=== PATIENT | female | born 1965 | race Caucasian/White ===

== ENCOUNTER 2020-10-26 10:09 | Outpatient (RCR) | payer BC, SELFPAY ==
[2015-04-21 08:16] VITALS: BMI 42.6
[2020-10-26] MEDS: COVID-19 VACC, MRNA(PFIZER)/PF 30 MCG/0.3 ML SYRINGE IM (18:45)
[2020-11-16] MEDS: COVID-19 VACC, MRNA(PFIZER)/PF 30 MCG/0.3 ML SYRINGE IM (18:23)
== END 2020-10-26 23:59 ==
LOC: IMMUN 10:09
PROVIDERS: PCP Family Medicine; Referring Provider Family Medicine; Visit Provider Family Medicine
DX: Z23 Encounter for immunization (principal)
CPT/HCPCS: 0001A; 0002A; 91300

== ENCOUNTER → 2021-03-30 09:20 | Outpatient (CLI) | payer BC, SELFPAY | PROVIDERS: PCP Family Medicine; Referring Provider Family Medicine; Visit Provider Family Medicine | DX: R00.2 Palpitations (principal); R00.0 Tachycardia, unspecified | CPT/HCPCS: 93225; 93226 ==

== ENCOUNTER → 2021-07-04 07:37 | Outpatient (CLI) | payer BC, SELFPAY ==
[2021-07-04 09:55] LABS: ALB/GLOB Ratio 0.8 RATIO (0.9-2.4); AST(SGOT) 24 U/L (15-37); Alanine Aminotransfer ALT/SGPT 36 U/L (13-56); Albumin, Serum 3.3 g/dL (3.2-5.0); Alkaline Phosphatase 67 U/L (45-117); Anion Gap 8 (5-15); BUN 15 mg/dL (7-18); BUN/Creat Ratio 19.2 RATIO (10-20); Bilirubin, Direct 0.09 mg/dL (0.00-0.30); Chloride 102 mmol/L (98-107); Cholesterol 243 mg/dL (200); Creatinine, Serum 0.78 mg/dL (0.55-1.02); EST Glomerular Filtration Rate 81 mL/min (>60); Est Glom Filt Rate - Afr Amer 98 mL/min (>60); Globulin 4.2 g/dL (2.2-4.2); Glucose 175 mg/dL (74-106); High Density Lipoprotein 42 mg/dL; Potassium 4.1 mmol/L (3.5-5.1); Protein, Total 7.5 g/dL (6.4-8.2); Sodium Level 136 mmol/L (136-145); Triglycerides 266 mg/dL; Very Low Density Lipoprotein 53 mg/dL (5-40)
== END ==
PROVIDERS: PCP Family Medicine; Referring Provider Internal Medicine Cardiovascular Disease; Visit Provider Internal Medicine Cardiovascular Disease
DX: I49.3 Ventricular premature depolarization (principal); I10 Essential (primary) hypertension; E78.2 Mixed hyperlipidemia; R00.2 Palpitations
CPT/HCPCS: 36415; 80053; 80061; 82248

== ENCOUNTER → 2021-07-12 13:51 | Outpatient (CLI) | payer BC, SELFPAY ==
--- NOTE | 2021-07-12 14:00 | ECHOD_ITS ---
Reason For Study: Arrhythmia Procedure This was a 2D Doppler, Color Flow transthoracic echocardiogram. Exam performed in department. Left Ventricle Normal LV size. Left ventricular systolic function is normal. The estimated ejection fraction is 65 %. Transmitral doppler flow suggestive of impaired relaxation of left ventricle. No regional wall motion abnormalities noted. Right Ventricle Normal RV size. Normal systolic function. Atria Normal left atrium. Normal right atrium. No doppler evidence for ASD. Mitral Valve There is no mitral annular calcification. Normal mitral valve. Trivial mitral valve insufficiency. Tricuspid Valve Normal tricuspid valve. Trivial tricuspid valve insufficiency. Unable to estimate RV systolic pressure due to insufficient tricuspid regurgitant envelope. Aortic Valve Trisinus/trileaflet aortic valve. Normal aortic valve. Trivial aortic valve insufficiency. Pulmonic Valve The pulmonic valve is not well visualized. Trivial pulmonic valve insufficiency. Great Vessels Normal sized aortic root. Pericardium/Pleural No pericardial effusion. MMode/2D Measurements & Calculations LVIDd: 4.4 cm IVSd: 1.0 cm Ao root diam: 3.0 cm LVIDs: 2.9 cm LVPWd: 0.92 cm RVDd: 2.8 cm FS: 34.0 % LAV(MOD-bp): 27.8 ml LVAd ap4: 28.1 cm2 LVAd ap2: 25.9 cm2 LAV(MOD-bp) Indexed: 12.3 ml/m2 LVLd ap4: 7.4 cm LVLd ap2: 7.7 cm LAV(MOD-sp2): 35.3 ml EDV(MOD-sp4): 87.9 ml EDV(MOD-sp2): 74.8 ml LAV(MOD-sp4): 21.2 ml EDV(sp4-el): 90.9 ml EDV(sp2-el): 73.5 ml LVAs ap4: 13.8 cm2 LVAs ap2: 14.2 cm2 LVLs ap4: 6.0 cm LVLs ap2: 6.6 cm ESV(MOD-sp4): 28.4 ml ESV(MOD-sp2): 26.7 ml ESV(sp4-el): 27.2 ml ESV(sp2-el): 25.9 ml EF(MOD-sp4): 67.7 % EF(MOD-sp2): 64.3 % EF(sp4-el): 70.1 % SV(MOD-sp4): 59.5 ml SV(MOD-sp2): 48.1 ml SV(sp4-el): 63.7 ml LA dimension(2D): 3.0 cm LA A4 area: 10.9 cm2 RA A4 area: 9.3 cm2 Doppler Measurements & Calculations MV E max rojelio: 52.5 cm/sec Lat Peak E' Rojelio: 10.9 cm/sec Med Peak E' Rojelio: 5.6 cm/sec MV A max rojelio: 62.4 cm/sec E/E' lat: 4.8 E/E' med: 9.3 MV E/A: 0.84 Ao V2 max: 144.0 cm/sec LV V1 max: 130.2 cm/sec PA V2 max: 114.4 cm/sec Ao max P.3 mmHg LV V1 max P.8 mmHg ECHO/Echo Complete Interpretation Summary Left ventricular systolic function is normal. The estimated ejection fraction is 65 %. Trivial mitral valve insufficiency. Trivial tricuspid valve insufficiency. Trivial aortic valve insufficiency. Trivial pulmonic valve insufficiency. Transmitral doppler flow suggestive of impaired relaxation of left ventricle Ordering Physician: Kerwin Roche Referring Physician: Marion Hurtado Performed By: Sushma Hudson RDCS
== END ==
PROVIDERS: PCP Family Medicine; Visit Provider Internal Medicine Cardiovascular Disease
DX: I49.3 Ventricular premature depolarization (principal); I49.1 Atrial premature depolarization; R00.2 Palpitations; E78.2 Mixed hyperlipidemia; I10 Essential (primary) hypertension
CPT/HCPCS: 93306

== ENCOUNTER 2021-10-15 08:30 | Outpatient (CLI) | payer BC, SELFPAY ==
[2021-10-15 10:00] LABS: ALB/GLOB Ratio 0.9 RATIO (0.9-2.4); AST(SGOT) 21 U/L (15-37); Alanine Aminotransfer ALT/SGPT 30 U/L (13-56); Albumin, Serum 3.8 g/dL (3.2-5.0); Alkaline Phosphatase 66 U/L (45-117); Anion Gap 9 (5-15); BUN 19 mg/dL (7-18); BUN/Creat Ratio 23.4 RATIO (10-20); Calcium,Total 8.9 mg/dL (8.5-10.1); Chloride 102 mmol/L (98-107); Cholesterol 244 mg/dL (200); Creatinine, Serum 0.81 mg/dL (0.55-1.02); EST Glomerular Filtration Rate 77 mL/min (>60); Est Glom Filt Rate - Afr Amer 94 mL/min (>60); Globulin 4.3 g/dL (2.2-4.2); Glucose 121 mg/dL (74-106); High Density Lipoprotein 44 mg/dL; Potassium 4.5 mmol/L (3.5-5.1); Protein, Total 8.1 g/dL (6.4-8.2); Sodium Level 134 mmol/L (136-145); Triglycerides 156 mg/dL; Very Low Density Lipoprotein 31 mg/dL (5-40)
[2021-10-17 08:28] LABS: Insulin 30.8 mU/L (2.6-37.6)
== END 2021-10-15 23:59 | disposition home or self-care (01) ==
PROVIDERS: PCP Family Medicine; Referring Provider Family Medicine; Visit Provider Family Medicine
DX: Z00.00 Encounter for general adult medical examination without abnormal findings (principal); E11.65 Type 2 diabetes mellitus with hyperglycemia
CPT/HCPCS: 36415; 80053; 80061; 83525; 84681

== ENCOUNTER → 2022-07-31 | Outpatient (CLI) | payer BC, SELFPAY | END | disposition home or self-care (01) | LOC: BFHLAB 15:32 | PROVIDERS: PCP Family Medicine; Visit Provider Family Medicine | DX: R30.0 Dysuria (principal) | CPT/HCPCS: 87086; 87088 ==

== ENCOUNTER → 2022-08-18 | Outpatient (CLI) | payer BC, SELFPAY ==
--- NOTE | 2022-08-18 11:49 | US_ITS ---
INDICATION: DIFFICULTY SWALLOWING EXAMINATION: Ultrasound US Thyroid (eg thyroid, parathyroid, parotid) TECHNIQUE: Powell scale and color doppler imaging was performed of the thyroid gland. COMPARISON: None. FINDINGS: RIGHT THYROID LOBE: 5.4 x 1.8 x 1.4 cm. Homogeneous echotexture with normal vascularity. [No thyroid nodules are present. LEFT THYROID LOBE: 4.7 x 1.6 x 1.3 cm. Homogeneous echotexture with normal vascularity. [No thyroid nodules are present. ISTHMUS: 2 mm. No thyroid nodules are present. Incidental finding of small left peritonsillar right lymph nodes measuring 9 x 8 x 4 mm most likely benign. US/Thyroid IMPRESSION: Negative thyroid ultrasound examination. Small left perithyroidal lymph node likely benign Electronically Signed: Pal Galdamez MD at 17:02 EST ,
== END | disposition home or self-care (01) ==
PROVIDERS: PCP Family Medicine; Visit Provider Family Medicine
DX: E01.0 Iodine-deficiency related diffuse (endemic) goiter (principal); R13.10 Dysphagia, unspecified
CPT/HCPCS: 76536

== ENCOUNTER → 2022-12-01 | Outpatient (CLI) | payer BC, SELFPAY ==
[2022-12-01 08:13] LABS: Absolute Lymphocyte Count 2.36 X10^3/uL (0.83-4.51); Absolute Neutrophil Count 3.2 X10^3/uL (2.0-7.7); Basophil# 0.03 X10^3/uL; Basophil% 0.5 % (0-1); Eosinophils% 1.6 % (0-5); Hematocrit 47.7 % (37-47); Hemoglobin 15.3 g/dL (12.0-15.0); Lymphocyte # 2.36 X10^3/ul (0.83-4.51); Lymphocyte % 38.4 % (19-41); Mean Corp Hgb Conc 32.1 g/dL (32-36); Mean Corpuscular Hgb 30.2 pg (27.0-32.0); Mean Corpuscular Volume 94.1 fL (81-99); Mean Platelet Vol. 9.9 fl (6.2-12.0); Monocyte# 0.45 X10^3/uL; Monocyte% 7.3 % (0-10); NRBC Flagged by Analyzer 0 % (0-5); Neutrophil # 3.19 X10^3/uL (2.7-7.7); Neutrophil % 51.9 % (47-70); Platelet Count 273 K/mm3 (150-450); RBC Distribution Width CV 13.6 % (11.6-14.6); RBC Distribution Width SD 46.7 fl (35.1-43.9); Red Blood Count 5.07 M/mm3 (4.2-5.4); White Blood Count 6.2 K/mm3 (4.4-11.0)
[2022-12-01 08:38] LABS: Microalbumin,Random Urine 10.6 mg/L (NO RANGE EST.); Microalbumin:Creatinine Ratio 14.5 mg/g CRE (<30 mg/g CRE)
[2022-12-01 08:40] LABS: AST(SGOT) 14 U/L (15-37); Alanine Aminotransfer ALT/SGPT 23 U/L (13-56); Albumin, Serum 3.6 g/dL (3.2-5.0); Alkaline Phosphatase 47 U/L (45-117); Anion Gap 2 (5-15); BUN 15 mg/dL (7-18); BUN/Creat Ratio 17.9 RATIO (10-20); Calcium,Total 9.4 mg/dL (8.5-10.1); Chloride 107 mmol/L (98-107); Cholesterol 247 mg/dL (200); Creatinine, Serum 0.84 mg/dL (0.55-1.02); EST Glomerular Filtration Rate 74 mL/min (>60); Est Glom Filt Rate - Afr Amer 90 mL/min (>60); Globulin 3.5 g/dL (2.2-4.2); Glucose 91 mg/dL (74-106); High Density Lipoprotein 50 mg/dL; Potassium 4.5 mmol/L (3.5-5.1); Protein, Total 7.1 g/dL (6.4-8.2); Sodium Level 136 mmol/L (136-145); Triglycerides 171 mg/dL; Very Low Density Lipoprotein 34 mg/dL (5-40)
[2022-12-01 08:50] LABS: Hemoglobin A1c 5.4 % (3.8-5.6)
== END | disposition home or self-care (01) ==
LOC: LAB 07:18
PROVIDERS: PCP Family Medicine; Referring Provider Family Medicine; Visit Provider Family Medicine
DX: E11.9 Type 2 diabetes mellitus without complications (principal); E78.5 Hyperlipidemia, unspecified
CPT/HCPCS: 36415; 80053; 80061; 82043; 82570; 83036; 85025

== ENCOUNTER → 2024-02-26 | Outpatient (CLI) | payer BC, SELFPAY | END | disposition home or self-care (01) | PROVIDERS: PCP Family Medicine; Referring Provider Family Medicine; Visit Provider Family Medicine | DX: R30.0 Dysuria (principal) | CPT/HCPCS: 87077; 87086; 87088; 87186 ==

== ENCOUNTER → 2024-03-01 | Outpatient (CLI) | payer BC, SELFPAY ==
[2024-03-01 09:22] LABS: Absolute Lymphocyte Count 1.92 X10^3/uL (0.83-4.51); Absolute Neutrophil Count 3.1 X10^3/uL (2.0-7.7); Basophil# 0.03 X10^3/uL; Basophil% 0.5 % (0-1); Eosinophil# 0.08 X10^3/uL; Eosinophils% 1.4 % (0-5); Hemoglobin 14.9 g/dL (12.0-15.0); Lymphocyte # 1.92 X10^3/ul (0.83-4.51); Lymphocyte % 34.7 % (19-41); Mean Corp Hgb Conc 32.4 g/dL (32-36); Mean Corpuscular Hgb 29.6 pg (27.0-32.0); Mean Corpuscular Volume 91.5 fL (81-99); Mean Platelet Vol. 9.8 fl (6.2-12.0); Monocyte# 0.38 X10^3/uL; Monocyte% 6.9 % (0-10); NRBC Flagged by Analyzer 0 % (0-5); Neutrophil % 56.1 % (47-70); Platelet Count 241 K/mm3 (150-450); RBC Distribution Width CV 12.8 % (11.6-14.6); RBC Distribution Width SD 42.1 fl (35.1-43.9); Red Blood Count 5.03 M/mm3 (4.2-5.4); White Blood Count 5.5 K/mm3 (4.4-11.0)
[2024-03-01 09:49] LABS: ALB/GLOB Ratio 1.1 RATIO (0.9-2.4); AST(SGOT) 15 U/L (15-37); Alanine Aminotransfer ALT/SGPT 21 U/L (13-56); Albumin, Serum 3.6 g/dL (3.2-5.0); Alkaline Phosphatase 52 U/L (45-117); Anion Gap 6 (5-15); BUN 14 mg/dL (7-18); BUN/Creat Ratio 16.2 RATIO (10-20); Calcium,Total 8.7 mg/dL (8.5-10.1); Chloride 103 mmol/L (98-107); Cholesterol 205 mg/dL (200); Creatinine, Serum 0.86 mg/dL (0.55-1.02); EST Glomerular Filtration Rate 71 mL/min (>60); Est Glom Filt Rate - Afr Amer 86 mL/min (>60); Globulin 3.3 g/dL (2.2-4.2); Glucose 77 mg/dL (74-106); High Density Lipoprotein 55 mg/dL; Potassium 3.8 mmol/L (3.5-5.1); Protein, Total 6.9 g/dL (6.4-8.2); Sodium Level 138 mmol/L (136-145); Triglycerides 110 mg/dL; Very Low Density Lipoprotein 22 mg/dL (5-40)
[2024-03-01 09:52] LABS: Hemoglobin A1c 4.9 % (3.8-5.6)
[2024-03-01 10:21] LABS: Microalbumin,Random Urine 8.3 mg/L (NO RANGE EST.); Microalbumin:Creatinine Ratio 11.3 mg/g CRE (<30 mg/g CRE)
== END | disposition home or self-care (01) ==
LOC: LAB 08:29
PROVIDERS: PCP Family Medicine; Referring Provider Family Medicine; Visit Provider Family Medicine
DX: E11.9 Type 2 diabetes mellitus without complications (principal); E78.5 Hyperlipidemia, unspecified
CPT/HCPCS: 36415; 80053; 80061; 82043; 82570; 83036; 85025

== ENCOUNTER → 2024-04-08 | Outpatient (CLI) | payer BC, SELFPAY ==
--- NOTE | 2024-04-08 15:51 | BI_ITS ---
MAMMOGRAPHY - BILATERAL SCREENING REASON FOR EXAM: Female, 58 years old. Routine annual screening examination. PERTINENT HISTORY: Non-contributory. TECHNIQUE: Digital bilateral breast kahlil (3D mammographic acquisition) in the CC and MLO projections. 2-D mediolateral oblique (MLO) and craniocaudad (CC) views of both breasts were obtained. CAD: Full Field Digital Mammography with Computer Added Detection was performed. COMPARISON: Comparison is made with prior study dated September 26, 2011. FINDINGS: Breast Composition: The breasts are almost entirely fatty. There are no dominant masses or suspicious calcifications. Stable small bilateral axillary lymph nodes. No other significant abnormalities are identified. There has been no significant change since the prior study. BI/SCRN MAMM (CAD)W/KAHLIL BILAT IMPRESSION: Stable bilateral screening mammogram. Yearly follow-up mammogram recommended. (A) ASSESSMENT CATEGORY: BIRADS Category 2: Benign. A letter regarding these results will be sent to the patient by the facility within 30 days. Approximately 10% of breast cancers are not detected by mammography. A normal mammogram should not delay biopsy of a clinically suspicious abnormality. [id number] Electronically Signed: Jameel Rodriguez MD at 8:24 EDT ,
== END | disposition home or self-care (01) ==
LOC: OPBI 15:50
PROVIDERS: PCP Family Medicine; Referring Provider Family Medicine; Visit Provider Family Medicine
DX: Z12.31 Encounter for screening mammogram for malignant neoplasm of breast (principal)
CPT/HCPCS: 77063; 77067

== ENCOUNTER → 2024-06-11 | Outpatient (CLI) | payer BC, SELFPAY ==
[2024-06-19 11:10] LABS: Age Gdln ACOG Testing 30-65 (.); HPV APTIMA, High Risk Negative (Negative)
[2024-06-23 14:40] LABS: HPV Reflexed? YES, CHARGE PATIENT
== END | disposition home or self-care (01) ==
PROVIDERS: PCP Family Medicine; Referring Provider Family Medicine; Visit Provider Family Medicine
DX: Z12.4 Encounter for screening for malignant neoplasm of cervix (principal)
CPT/HCPCS: 87624; 88175; G0145

== ENCOUNTER 2024-09-15 11:07 | Emergency (ER) | payer BC, SELFPAY ==
[2024-09-15 11:08] VITALS: BP 155/78; PULSE 79; RESP 16; TEMP 36.7; O2SAT 98; BMI 32.8
[2024-09-15 11:10] VITALS: BP 155/78; PULSE 79; RESP 16; TEMP 36.7; O2SAT 98
--- NOTE | 2024-09-15 11:22 | EKG12_ITS ---
Test Reason : Blood Pressure : */* mmHG Vent. Rate : 73 BPM Atrial Rate : 73 BPM P-R Int : 150 ms QRS Dur : 70 ms QT Int : 370 ms P-R-T Axes : 31 11 9 degrees QTcB Int : 407 ms Normal sinus rhythm Low voltage QRS Abnormal ECG Confirmed by COREY REAGAN, RANDY ([id number]), managing editor SILVER DAVIS ([id number]) on 09/16/2024 8:51:24 AM Referred By: Confirmed By: RANDY NICOEL MD
--- NOTE | 2024-09-15 11:23 | EDS_ITS ---
HPI <DEX Cazares - Last Filed: 09/15/24 14:16> History of Present Illness Chief Complaint: General Illness Narrative Narrative: Patient is a 38-year-old female history of type 2 diabetes, hypertension, hyperlipidemia presents to the emerged department for 3 to 4 days of generalized malaise, stomach upset. Patient states today, she is more shaky, she has some chest fluttering, and feels extremely nauseous. Patient denies any shortness of breath, patient denies any documented fever or chills however states she feels hot. She denies sick contacts. Denies any specific diarrhea. [facility] <DEX Cazares - Last Filed: 09/15/24 14:16> [facility] Medical History (Updated 09/15/24 @ 15:[address] Zeb Chin MD) PAC (premature atrial contraction) PVC's (premature ventricular contractions) Ventricular ectopy Peripheral neuropathy Mixed hyperlipidemia Asthma Essential hypertension Type 2 diabetes mellitus Home Medications ?Medication ?Instructions ?Recorded ?Last Taken ?Type albuterol sulfate 90 mcg/actuation 2 puff inhalation Q 6H PRN 06/03/21 Unknown History aerosol inhaler (Ventolin HFA) clobetasol 0.05 % topical cream 1 applic topical BID P RN Psoriasis 06/03/21 Unknown Rx #15 grams empagliflozin 25 mg tablet 25 mg PO DAILY 06/03/21 Unk nown History (Jardiance) fluticasone propionate 115 2 puff inhalation BID #8 gr ams 06/03/21 Unknown Rx mcg-salmeterol 21 mcg/actuation HFA inhaler (Advair HFA) liraglutide 0.6 mg/0.1 mL (18 mg/3 1.8 mg (0.3 mL) sub cut DAILY #6 mL 06/03/21 Unknown Rx mL) subcutaneous pen injector (Victoza 2-Cayetano) lisinopril 40 mg tablet 40 mg PO DAILY 06/03/21 Unkn own History mometasone 50 mcg/actuation nasal 2 spray intranasal D AILY PRN 06/03/21 Unknown Rx spray (Nasonex) allergy symptoms #17 grams alprazolam 0.25 mg tablet (Xanax) 0.25 mg PO DAILY PRN anxiety 06/23/21 Unknown History atorvastatin 20 mg tablet 20 mg PO QHS #30 tabs Unknown Rx ondansetron 4 mg disintegrating 4 mg PO Q8H PRN PRN Na usea #10 tabs 09/15/24 Unknown Rx tablet Allergy/AdvReac Type Severity Reaction Status Date / Time No Known Allergies Allergy Verified 09/15/24 11:39 Family History Mother Hypertension CAD (coronary artery disease), Onset Age: 60 Father Hypertension Sister Atrial fibrillation Sister Atrial fibrillation Surgical History History of left knee surgery Social History Smoking Status: Former smoker alcohol intake: never substance use type: does not use caffeine: No ROS <DEX Cazares - Last Filed: 09/15/24 14:16> ROS ED ROS Narrative Constitutional: Negative for fever, weight loss. Positive chills, weakness Eyes: Negative for vision loss, vision change, double vision ENT: Negative for any sore throat, ear pain, congestion Cardiovascular: Negative for any chest pain, tightness, palpitations Respiratory: Negative for any cough, sputum production, hemoptysis, dyspnea, dyspnea on exertion, orthopnea Gastrointestinal: Negative for any abdominal pain, vomiting, diarrhea, constipation, blood in stool, blood in vomit. Positive for nausea : Negative for any urinary frequency, dysuria, retention, blood in urine Muscle skeletal: Negative for any neck pain. Positive back pain Neurological: Negative for any headache, syncope, dizziness Skin: Negative for any rashes, itching, abrasions, lacerations Psychiatric: Negative for any depression, anxiety, stress, suicidal ideation, homicidal ideation Hematologic: Negative for any excessive bruising, easy bleeding EXAM <DEX Cazares - Last Filed: 09/15/24 14:16> Physical Exam Narrative Exam Narrative: Vital signs reviewed. HEET: Head normocephalic atraumatic, TMs clear bilaterally. Posterior pharynx is clear, dry mucous membranes. Nares clear bilaterally. Neck: Supple with no lymphadenopathy or tenderness. No signs of meningismus. Cardiac: Regular rate and rhythm no murmurs gallops or rubs, equal peripheral pulses bilaterally. Respiratory: Lungs clear to auscultation bilaterally. No chest tenderness. Abdomen: Soft, nontender, nondistended. No abdominal bruit or pulsatile masses. No hepatosplenomegaly Extremities: No peripheral edema, no signs of gross trauma or deformity. Active full range of motion of all extremities. Neuro: Cranial nerves II through XII intact, no focal neurological deficits. Skin: Clean dry and intact with no rash, purpura, petechiae, vesicles or pustules. Backs/flank: No CVA tenderness, no midline spinal tenderness, no deformity. Psych: Normal mood and affect. No SI, HI or acute psychosis. Const Vital Signs: 09/15/24 11:08 09/15/24 11:10 09/15/24 11:39 Temperature 98.1 F 98.1 F Temperature Source Temporal Temporal Pulse Rate 79 79 Respiratory Rate 16 16 Respiratory Effort Normal Respiratory Pattern Normal Blood Pressure 155/78 H 155/78 H Blood Pressure Mean 103 103 Pulse Ox 98 98 Oxygen Delivery Method Room Air Room Air 09/15/24 13:00 09/15/24 14:36 Temperature 97.7 F L 97.2 F L Temperature Source Oral Pulse Rate 75 73 Respiratory Rate 16 15 Respiratory Effort Respiratory Pattern Blood Pressure 129/71 H 124/77 H Blood Pressure Mean 90 92 Pulse Ox 98 98 Oxygen Delivery Method Room Air <Dr. Zeb Chin MD - Last Filed: 09/15/24 15:09> Physical Exam Const Vital Signs: 09/15/24 11:08 09/15/24 11:10 09/15/24 11:39 Temperature 98.1 F 98.1 F Temperature Source Temporal Temporal Pulse Rate 79 79 Respiratory Rate 16 16 Respiratory Effort Normal Respiratory Pattern Normal Blood Pressure 155/78 H 155/78 H Blood Pressure Mean 103 103 Pulse Ox 98 98 Oxygen Delivery Method Room Air Room Air 09/15/24 13:00 09/15/24 14:36 Temperature 97.7 F L 97.2 F L Temperature Source Oral Pulse Rate 75 73 Respiratory Rate 16 15 Respiratory Effort Respiratory Pattern Blood Pressure 129/71 H 124/77 H Blood Pressure Mean 90 92 Pulse Ox 98 98 Oxygen Delivery Method Room Air MDM <DEX Cazares - Last Filed: 09/15/24 14:16> [facility] Lab Data Labs: Laboratory Results - last 24 hr 09/15/24 09/15/24 11:37 13:00 WBC 6.8 RBC 4.91 Hgb 14.9 Hct 43.6 MCV 88.8 MCH 30.3 MCHC 34.2 RDW Std Deviation 41.6 RDW Coeff of Melchor 12.6 Plt Count 229 MPV 9.5 Immature Gran % (Auto) 0.900 Neut % (Auto) 76.0 H Lymph % (Auto) 17.3 L Guadalupe % (Auto) 5.0 Eos % (Auto) 0.4 Baso % (Auto) 0.4 Absolute Neuts (auto) 5.1 Absolute Lymphs (auto) 1.17 Nucleated RBC % 0 D-Dimer Quant (PE/DVT) 0.27 Sodium 139 Potassium 3.8 Chloride 108 H Carbon Dioxide 23.0 Anion Gap 8 BUN 17 Creatinine 1.14 H Estim Creat Clear Calc 62.87 Est GFR (MDRD) Af Amer 63 Est GFR (MDRD) Non-Af 52 L BUN/Creatinine Ratio 14.9 Glucose 124 H Calcium 8.9 Total Bilirubin 0.60 AST 17 ALT 21 Alkaline Phosphatase 56 Troponin I High Sens 4 Total Protein 6.9 Albumin 3.4 Globulin 3.5 Albumin/Globulin Ratio 1.0 Lipase 81 H Urine Color Yellow Urine Clarity Clear Urine pH 7.0 Ur Specific [place] 1.005 Urine Protein Negative Urine Glucose (UA) 1000 H Urine Ketones 5 H Urine Occult Blood Negative Urine Nitrite Negative Urine Bilirubin Negative Urine Urobilinogen Normal Ur Leukocyte Esterase 100 H Urine RBC 0 SEEN Urine WBC 0-5 SEEN Ur Squamous Epith Cells 0-5 SEEN Urine Bacteria 0 SEEN Urine Mucus 0 SEEN Radiography Diagnostic Testing: Clinical Impression(s) from Imaging Studies Chest X-Ray 09/15/24 11:40 IMPRESSION: No acute cardiopulmonary process. Reading Location: [facility] Treatment and Re-Evaluation :: Differential diagnosis includes however is not limited to: Pyelonephritis, UTI, COVID-19, influenza, RSV, other virus, viral gastroenteritis, electrode abnormality, dehydration Patient appears generally well, vital signs are stable, patient is nontoxic- appearing. Presenting to the emergency department for feeling bloated, nausea, weakness, back pain. Patient will receive some abdominal laboratory values such as CBC CMP lipase, troponin will be added secondary to this heart fluttering. Patient will be given IV fluids, Zofran. Patient on my initial examination I do not believe requires any advanced imaging. Patient will need to be reevaluated Patient's laboratory values show a normal CBC, patient's chemistries show slight increase in creatinine to 1.14, patient baseline is 0.84, this could be secondary to some dehydration. Patient's lipase slightly elevated 81, patient's D-dimer was negative, no concern for any PE. COVID-19 influenza RSV was negative. Urinalysis negative for infection. Patient on reevaluation did feel better, she was ambulatory and felt improved. Patient will receive a second dose of Zofran, p.o. challenge. Urinalysis negative for infection. <Dr. Zeb Chin MD - Last Filed: 09/15/24 15:09> [facility] Narrative Medical decision making narrative: I have personally performed a face to face assessment of the patient and have reviewed the ALEXIA Note. I performed a substantive portion of the visit including all aspects of the following. My gambino findings include: History is remarkable for complaint of upset stomach with shaking and low back pain. She is concerned with respect to the low back pain since her father of a ruptured abdominal aortic aneurysm. She also is short of breath. The shortness of breath started this morning abruptly. There is no history of VTE. She denies leg pain, swelling discoloration. She has no history of recent surgery or travel. There is no family history of VTE. She denies leg pain, swelling discoloration. She denies upper respiratory tract infectious symptoms. She has no history of coronary artery disease or congestive heart failure. She does have history of hypercholesterolemia, hypertension and diabetes. She has type 2 diabetes. Exam is remarkable fact the patient is tachypneic. She does not appear well. HEENT exam is unremarkable. Neck is supple. Trachea is midline. There is no stridor. Lungs reveal no wheeze rales rhonchi's with good move air bilaterally. Heart is regular. There is no murmur, gallop or rub. Rate is normal. Abdomen is soft nontender. I do not appreciate a palpable pulsatile mass. There is no abdominal bruit. Exam is slightly limited due to the fact that her BMI is 32.8. There is no asymmetry, swelling, discoloration, leg vein distention, palpable cords or tenderness along the distribution of the deep venous system. Patient does have distal palpable pulses. Medical Decision Making this may represent atypical presentation for cardiac ischemia, PE, doubt pneumothorax. Workup was undertaken which included EKG, appropriate blood work including D-dimer. Chest x-ray was obtained as well. Other additions or changes: [None] Lab Data Attestation: I reviewed the patient's lab results. Lab results narrative: CBC is unremarkable. There is slight increase in neutrophil percentage otherwise unremarkable. D-dimer is normal. Lipase is slightly elevated. Liver enzymes and bilirubin are normal. Creatinine is slightly increased from baseline. It is 1.14 with an estimated GFR 52. Prior creatinine February 2024 was 0.86 with an estimated GFR of 71. Labs: Laboratory Results - last 24 hr 09/15/24 09/15/24 11:37 13:00 WBC 6.8 RBC 4.91 Hgb 14.9 Hct 43.6 MCV 88.8 MCH 30.3 MCHC 34.2 RDW Std Deviation 41.6 RDW Coeff of Melchor 12.6 Plt Count 229 MPV 9.5 Immature Gran % (Auto) 0.900 Neut % (Auto) 76.0 H Lymph % (Auto) 17.3 L [place] % (Auto) 5.0 Eos % (Auto) 0.4 Baso % (Auto) 0.4 Absolute Neuts (auto) 5.1 Absolute Lymphs (auto) 1.17 Nucleated RBC % 0 D-Dimer Quant (PE/DVT) 0.27 Sodium 139 Potassium 3.8 Chloride 108 H Carbon Dioxide 23.0 Anion Gap 8 BUN 17 Creatinine 1.14 H Estim Creat Clear Calc 62.87 Est GFR (MDRD) Af Amer 63 Est GFR (MDRD) Non-Af 52 L BUN/Creatinine Ratio 14.9 Glucose 124 H Calcium 8.9 Total Bilirubin 0.60 AST 17 ALT 21 Alkaline Phosphatase 56 Troponin I High Sens 4 Total Protein 6.9 Albumin 3.4 Globulin 3.5 Albumin/Globulin Ratio 1.0 Lipase 81 H Urine Color Yellow Urine Clarity Clear Urine pH 7.0 Ur Specific [place] 1.005 Urine Protein Negative Urine Glucose (UA) 1000 H Urine Ketones 5 H Urine Occult Blood Negative Urine Nitrite Negative Urine Bilirubin Negative Urine Urobilinogen Normal Ur Leukocyte Esterase 100 H Urine RBC 0 SEEN Urine WBC 0-5 SEEN Ur Squamous Epith Cells 0-5 SEEN Urine Bacteria 0 SEEN Urine Mucus 0 SEEN Radiography Chest X-Ray - ED: 2 View and Read by ED Physician (Independently reviewed interpreted by me as negative for any acute process. Cardiac silhouette and size normal. Lung parenchyma is normal. There is no effusion or evidence of CHF. Hilum is unremarkable. Osseous structures reveal minimal degenerative changes of the thoracic vertebrae.) Diagnostic Testing: Clinical Impression(s) from Imaging Studies Chest X-Ray 09/15/24 11:40 IMPRESSION: No acute cardiopulmonary process. Reading Location: [facility] EKG Initial EKG: Attestation: I personally reviewed and interpreted this EKG as follows: Interpretation: Sinus Rhythm (Rate is 73. There is no ossific ST-T wave changes which in my opinion is artifact. NC interval 250 ms. His duration 70 ms. QT QRS duration is 370 ms. Talbott is normal.) Discharge Plan Triage Chief Complaint: General Illness ED Midlevel Provider: Kerwin Benítez ED Provider: Zeb Chin Dx/Rx/DC Orders Clinical Impression: Nausea, Acute dehydration, Type 2 diabetes mellitus, PAC (premature atrial contraction), Tachypnea, Elevated blood pressure reading with diagnosis of hypertension Instructions: ED Dehydration (Adult), ED Gastroenteritis, Viral (Adult) Prescriptions: New ondansetron 4 mg tablet,disintegrating 4 mg PO Q8H PRN PRN (Reason: Nausea) Qty: 10 0RF No Action alprazolam [Xanax] 0.25 mg tablet 0.25 mg PO DAILY PRN (Reason: anxiety) albuterol sulfate [Ventolin HFA] 90 mcg/actuation HFA aerosol inhaler 2 puff inhalation Q6H PRN Advair HFA 115-21 mcg/actuation HFA aerosol inhaler 2 puff inhalation BID Qty: 8 0RF clobetasol 0.05 % cream 1 applic topical BID PRN (Reason: Psoriasis) Qty: 15 0RF Jardiance 25 mg tablet 25 mg PO DAILY lisinopril 40 mg tablet 40 mg PO DAILY mometasone [Nasonex] 50 mcg/actuation spray,non-aerosol 2 spray intranasal DAILY PRN (Reason: allergy symptoms) Qty: 17 0RF Rx Instructions: administer into each nostril Victoza 2-Cayetano 0.6 mg/0.1 mL (18 mg/3 mL) pen injector 1.8 mg subcut DAILY Qty: 6 0RF atorvastatin 20 mg tablet 20 mg PO QHS Qty: 30 12RF Primary Care Provider: Marion Hurtado Referrals: Marion Hurtado, [Primary Care Provider] - Activity Restrictions/Additional Instructions: Use the nausea medicine. If you get worse, please return for any worsening symptoms. Print Language: Slovenian Disposition Disposition: Home, Self Care Discharge Date/Time: 09/15/24 14:36
[2024-09-15] MEDS: Ondansetron 4 MG/2 ML Vial IV ×2 (11:37→13:52)
[2024-09-15] MEDS: 0.9% Normal Saline (1000mL) 1,000 ML 999 ML IV (11:37)
--- NOTE | 2024-09-15 11:40 | RAD_ITS ---
EXAM: XR Chest, 2 Views CLINICAL INDICATION: TECHNIQUE: Frontal and lateral views of the chest. COMPARISON: No relevant prior studies available. FINDINGS: LUNGS AND PLEURAL SPACES: Unremarkable. No consolidation. No pneumothorax. HEART: Unremarkable. No cardiomegaly. MEDIASTINUM: Unremarkable. Normal mediastinal contour. BONES/JOINTS: Unremarkable. No acute fracture. RAD/Chest PA and Lateral IMPRESSION: No acute cardiopulmonary process. Reading Location[facility]
[2024-09-15 11:51] LABS: Absolute Lymphocyte Count 1.17 X10^3/uL (0.83-4.51); Absolute Neutrophil Count 5.1 X10^3/uL (2.0-7.7); Basophil# 0.03 X10^3/uL; Basophil% 0.4 % (0-1); Eosinophil# 0.03 X10^3/uL; Eosinophils% 0.4 % (0-5); Hematocrit 43.6 % (37-47); Hemoglobin 14.9 g/dL (12.0-15.0); Lymphocyte # 1.17 X10^3/ul (0.83-4.51); Lymphocyte % 17.3 % (19-41); Mean Corp Hgb Conc 34.2 g/dL (32-36); Mean Corpuscular Hgb 30.3 pg (27.0-32.0); Mean Corpuscular Volume 88.8 fL (81-99); Mean Platelet Vol. 9.5 fl (6.2-12.0); Monocyte# 0.34 X10^3/uL; NRBC Flagged by Analyzer 0 % (0-5); Neutrophil # 5.13 X10^3/uL (2.7-7.7); Platelet Count 229 K/mm3 (150-450); RBC Distribution Width CV 12.6 % (11.6-14.6); RBC Distribution Width SD 41.6 fl (35.1-43.9); Red Blood Count 4.91 M/mm3 (4.2-5.4); White Blood Count 6.8 K/mm3 (4.4-11.0)
[2024-09-15 12:07] LABS: AST(SGOT) 17 U/L (15-37); Alanine Aminotransfer ALT/SGPT 21 U/L (13-56); Albumin, Serum 3.4 g/dL (3.2-5.0); Alkaline Phosphatase 56 U/L (45-117); Anion Gap 8 (5-15); BUN 17 mg/dL (7-18); BUN/Creat Ratio 14.9 RATIO (10-20); Calcium,Total 8.9 mg/dL (8.5-10.1); Chloride 108 mmol/L (98-107); Creatinine, Serum 1.14 mg/dL (0.55-1.02); EST Glomerular Filtration Rate 52 mL/min (>60); Est Glom Filt Rate - Afr Amer 63 mL/min (>60); Estimated Creatinine Clearance 62.87 ml/min; Globulin 3.5 g/dL (2.2-4.2); Glucose 124 mg/dL (74-106); Lipase 81 U/L (13-75); Potassium 3.8 mmol/L (3.5-5.1); Protein, Total 6.9 g/dL (6.4-8.2); Sodium Level 139 mmol/L (136-145); Troponin-I HS 4 pg/mL (3.0-54.0)
[2024-09-15 12:26] LABS: D-Dimer Quantitative (DVT/PE) 0.27 FEU/ug/m (0.27-0.49)
[2024-09-15 13:00] VITALS: BP 129/71; PULSE 75; RESP 16; TEMP 36.5; O2SAT 98
[2024-09-15 13:12] LABS: Bacteria 0 SEEN /hpf (None Seen); Mucous, Urine 0 SEEN /hpf (<or=2+); Red Blood Cells-Urine 0 SEEN /hpf (0-5)
[2024-09-15 13:23] LABS: Color, Urine Yellow (Yellow); Glucose, Dipstick 1000 mg/dl (Normal); Ketone-Dipstick 5 mg/dl (Negative); Leukocyte Esterase-Dipstick 100 /ul (Negative); Nitrite-Dipstick Negative (Negative); Occult Blood-Urine Negative /ul (Negative); Protein-Dipstick Negative (Negative); Specific Gravity, Urine 1.005 (1.002-1.030); Urine Bilirubin Dipstick Negative (Negative); Urine Clarity Clear (Clear); Urine Urobilinogen Normal (Normal)
[2024-09-15 14:10] LABS: Squamous Epithelial Cells - UA 0-5 SEEN /hpf (5-10); White Blood Cells 0-5 SEEN /hpf (0-5)
[2024-09-15 14:36] VITALS: BP 124/77; PULSE 73; RESP 15; TEMP 36.2; O2SAT 98
== END 2024-09-15 14:36 | disposition home or self-care (01) ==
PROVIDERS: Nurse Practitioner; Emergency Provider Emergency Medicine; PCP Family Medicine; Visit Provider Emergency Medicine
DX: R11.0 Nausea (principal); E11.42 Type 2 diabetes mellitus with diabetic polyneuropathy; E86.0 Dehydration; I10 Essential (primary) hypertension; I49.3 Ventricular premature depolarization; J45.909 Unspecified asthma, uncomplicated; Z87.891 Personal history of nicotine dependence
CPT/HCPCS: 71046; 80053; 81001; 83690; 84484; 85025; 85379; 87631; 93005; 96361; 96374; 96376; 99283; A4216; J2405

== ENCOUNTER → 2024-10-06 | Outpatient (CLI) | payer BC, SELFPAY ==
[2024-10-06 15:44] LABS: Absolute Lymphocyte Count 2.06 X10^3/uL (0.83-4.51); Absolute Neutrophil Count 4.8 X10^3/uL (2.0-7.7); Basophil# 0.05 X10^3/uL; Basophil% 0.7 % (0-1); Eosinophil# 0.04 X10^3/uL; Eosinophils% 0.5 % (0-5); Hemoglobin 16.7 g/dL (12.0-15.0); Lymphocyte # 2.06 X10^3/ul (0.83-4.51); Lymphocyte % 27.3 % (19-41); Mean Corp Hgb Conc 33.4 g/dL (32-36); Mean Corpuscular Hgb 30.6 pg (27.0-32.0); Mean Corpuscular Volume 91.7 fL (81-99); Mean Platelet Vol. 10.1 fl (6.2-12.0); Monocyte# 0.55 X10^3/uL; Monocyte% 7.3 % (0-10); NRBC Flagged by Analyzer 0 % (0-5); Neutrophil # 4.82 X10^3/uL (2.7-7.7); Neutrophil % 63.9 % (47-70); Platelet Count 306 K/mm3 (150-450); RBC Distribution Width CV 12.9 % (11.6-14.6); RBC Distribution Width SD 42.6 fl (35.1-43.9); Red Blood Count 5.45 M/mm3 (4.2-5.4); White Blood Count 7.5 K/mm3 (4.4-11.0)
[2024-10-06 15:56] LABS: Erythrocyte Sedimentation Rate 22 mm/hr (0-30)
[2024-10-06 19:17] LABS: ALB/GLOB Ratio 1.1 RATIO (0.9-2.4); AST(SGOT) 14 U/L (15-37); Alanine Aminotransfer ALT/SGPT 26 U/L (13-56); Albumin, Serum 4.2 g/dL (3.2-5.0); Alkaline Phosphatase 63 U/L (45-117); Anion Gap 7 (5-15); BUN 20 mg/dL (7-18); BUN/Creat Ratio 20.5 RATIO (10-20); CRP 5.84 mg/L (0.0-3.0); Calcium,Total 9.9 mg/dL (8.5-10.1); Chloride 101 mmol/L (98-107); Creatinine, Serum 0.98 mg/dL (0.55-1.02); EST Glomerular Filtration Rate 62 mL/min (>60); Est Glom Filt Rate - Afr Amer 75 mL/min (>60); Globulin 3.9 g/dL (2.2-4.2); Glucose 88 mg/dL (74-106); Potassium 5.1 mmol/L (3.5-5.1); Protein, Total 8.1 g/dL (6.4-8.2); Sodium Level 134 mmol/L (136-145); Thyroid Stim Hormone (TSH) 0.856 uIU/mL (0.358-3.740)
== END | disposition home or self-care (01) ==
LOC: BFHLAB 11:22
PROVIDERS: PCP Family Medicine; Visit Provider Family Medicine
DX: R42 Dizziness and giddiness (principal); R53.83 Other fatigue; I10 Essential (primary) hypertension
CPT/HCPCS: 36415; 80053; 84443; 85025; 85652; 86140

== ENCOUNTER → 2024-10-21 | Outpatient (CLI) | payer BC, SELFPAY ==
--- NOTE | 2024-10-21 15:23 | RAD_ITS ---
PROCEDURE: Paranasal sinus radiographs REASON FOR EXAM: Pain, sinusitis, vertigo TECHNIQUE: 3 view(s) of the paranasal sinuses COMPARISON: None. FINDINGS: See impression RAD/Sinuses min 3 Views IMPRESSION: Paranasal sinuses are well-aerated. No discrete fluid levels, gross cortical e rosions or osseous thickening. Mastoid air cells are relatively pneumatized. Multiple subtle punctate lucencies throughout the skull which are nonspecific but can be seen width hyperparathyroidism. Please correlate. Reading Location: [facility]
== END | disposition home or self-care (01) ==
LOC: MTRAD 15:22
PROVIDERS: PCP Family Medicine; Referring Provider Family Medicine; Visit Provider Family Medicine
DX: J32.1 Chronic frontal sinusitis (principal)
CPT/HCPCS: 70220

== ENCOUNTER → 2024-11-06 | Outpatient (CLI) | payer BC, SELFPAY ==
--- NOTE | 2024-11-06 09:54 | RAD_ITS ---
PROCEDURE: CHEST PA AND LATERAL 11/06/2024 REASON FOR EXAM: COUGH. TECHNIQUE: As above. COMPARISON: September 15, 2024. FINDINGS: Lungs remain clear. Pulmonary vasculature is not engorged. Cardiomediastinal silhouette is normal in size and contour. Mild atherosclerotic calcification seen in the great vessels. Costophrenic angles are free of fluid. Some degenerative change is incidentally noted in the upper lumbar spine. RAD/Chest PA and Lateral IMPRESSION: No evidence of acute cardiopulmonary disease. Reading Location: [place] [id number]
[2024-11-06 10:56] LABS: Ionized Calcium Order ORDER TUBE
[2024-11-06 12:44] LABS: Absolute Lymphocyte Count 2.17 X10^3/uL (0.83-4.51); Absolute Neutrophil Count 4.7 X10^3/uL (2.0-7.7); Basophil# 0.02 X10^3/uL; Basophil% 0.3 % (0-1); Eosinophil# 0.13 X10^3/uL; Eosinophils% 1.7 % (0-5); Hematocrit 47.7 % (37-47); Hemoglobin 15.7 g/dL (12.0-15.0); Lymphocyte # 2.17 X10^3/ul (0.83-4.51); Lymphocyte % 28.5 % (19-41); Mean Corp Hgb Conc 32.9 g/dL (32-36); Mean Corpuscular Hgb 30.7 pg (27.0-32.0); Mean Corpuscular Volume 93.2 fL (81-99); Mean Platelet Vol. 10.4 fl (6.2-12.0); Monocyte# 0.52 X10^3/uL; Monocyte% 6.8 % (0-10); NRBC Flagged by Analyzer 0 % (0-5); Neutrophil # 4.72 X10^3/uL (2.7-7.7); Neutrophil % 61.9 % (47-70); Platelet Count 267 K/mm3 (150-450); RBC Distribution Width CV 13.2 % (11.6-14.6); RBC Distribution Width SD 45.2 fl (35.1-43.9); Red Blood Count 5.12 M/mm3 (4.2-5.4); White Blood Count 7.6 K/mm3 (4.4-11.0)
[2024-11-06 13:05] LABS: PTHIN 39 pg/mL (11-61)
[2024-11-06 13:16] LABS: Vitamin D,25 Hydroxy 70.6 ng/mL (30-100)
[2024-11-10 12:08] LABS: Vitamin D 1,25-Dihydroxy 38.1 pg/mL (24.8-81.5)
== END | disposition home or self-care (01) ==
LOC: MTLAB 09:52
PROVIDERS: PCP Family Medicine; Referring Provider Family Medicine; Visit Provider Family Medicine
DX: R05.9 Cough, unspecified (principal); E55.9 Vitamin D deficiency, unspecified
CPT/HCPCS: 36415; 71046; 82306; 82652; 83970; 85025

== ENCOUNTER → 2025-05-06 | Outpatient (CLI) | payer BC, SELFPAY ==
--- OUTSIDE RECORDS SUMMARY | 2025-05-06 18:56 | XMS RPT_ITS | CCD ---
Author Organization [facility] Care Team Providers Care Security Patrol Driver Name Role Phone Genesis LOPEZ, Dr. Schultz Primary Care Provider [phone] Giuseppe REAGAN, Dr. Carrington Attending Provider Giuseppe REAGAN, Dr. Carrington Emergency Provider Genesis LOPEZ, Dr. Schultz Attending Provider [phone] Genesis LOPEZ, Dr. Schultz Referring Provider Malys, Marion Attending Unavailable Malys, Marion Primary Care Unavailable Malys, Marion Attending Unavailable Malys, Marion Referring Unavailable Malys, Marion Primary Care Unavailable Zeb Chin Attending Unavailable Malys, Marion Primary Care Unavailable Malys, Marion Attending Unavailable Malys, Marion Referring Unavailable Malys, Marion Primary Care Unavailable Malys, Marion Attending Unavailable Malys, Marion Referring Unavailable Malys, Marion Primary Care Unavailable Malys, Marion Attending Unavailable Malys, Marion Referring Unavailable Malys, Marion Primary Care Unavailable Malys, Marion Attending Unavailable Malys, Marion Referring Unavailable Malys, Marion Primary Care Unavailable Malys, Marion Attending Unavailable Malys, Marion Referring Unavailable Malys, Marion Primary Care Unavailable Medications Current Medications Medication Drug Class(es) Dates Sig (Normalized) Sig (Original) [id number] 200 actuat albuterol 0.09 mg/actuat metered dose inhaler (4 sources) beta2-Adrenergic Agonist Start: 06-03-2021 Albuterol Sulfate (Ventolin Hfa) 90 mcg/actuation HFA aerosol inhaler Active 2 NMA INHALATION EVERY 6 HOURS as needed June 03, 2021 12:00am Start: 06-03-2021 take 1 puff(s) by in halation every six hours Albuterol Sulfate (Ventolin Hfa) 90 mcg/actuation HFA aerosol inhaler Active 2 PUFF INHALATION EVERY 6 HOURS June 03, 2021 12:00am ALPRAZolam 0.25 mg oral tablet (8 sources) Benzodiazepine Start: 06-23-2021 take 1 tablet by mouth once daily as needed for anxiety Alprazolam (Xanax) 0.25 mg tablet Active 0.25 mg PO DAILY as needed for anxiety June 23, 2021 1:00am Start: 06-03-2021 End: 06-03-2021 take 1 tablet by mouth twice daily as needed for anxiety Alprazolam 0.5 mg tablet Discontinued 0.5 mg PO TWICE A DAY as needed for anxiety June 03, 2021 12:00am June 03, 2021 10:04am atorvastatin 20 mg oral tablet (8 sources) HMG-CoA Reductase Inhibitor Start: 07-12-2021 End: 07-12-2021 take 1 tablet by mouth at bedtime Atorvastatin 20 mg tablet Active 20 mg PO AT BEDTIME July 12, 2021 11:45am clobetasol propionate 0.5 mg/ml topical cream (4 sources) Corticosteroid Start: 06-03-2021 Clobetasol 0.05 % cream Active 1 NMA TOPICAL TWICE A DAY as needed for Psoriasis June 03, 2021 12:00am empagliflozin 25 mg oral tablet (4 sources) Sodium-Glucose Cotransporter 2 Inhibitor Start: 06-03-2021 take 1 tablet by mouth once daily Empagliflozin (Jardiance) 25 mg tablet Active 25 mg PO DAILY June 03, 2021 12:00am Fluticasone Propion-Salmeterol (8 sources) Corticosteroid, beta2-Adrenergic Agonist Start: 06-03-2021 End: 06-23-2021 Fluticasone Propion-Salmeterol (Advair Diskus) 250-50 mcg/dose blister with device Discontinued 1 NMA INHALATION DAILY 60 June 03, 2021 12:00am June 23, 2021 12:26pm Start: 06-03-2021 Fluticasone Pr opion-Salmeterol (Advair Hfa) 115-21 mcg/actuation HFA aerosol inhaler Active 2 NMA INHALATION TWICE A DAY June 03, 2021 12:00am Start: 06-03-2021 End: 06-23-2021 Fluticasone Propion-Salmeter ol (Advair Diskus) 250-50 mcg/dose blister with device Discontinued 1 INH INHALATION DAILY June 03, 2021 12:00am June 23, 2021 12:26pm Start: 06-03-2021 take 1 puff(s) by in halation twice daily Fluticasone Propion-Salmeterol (Advair Hfa) 115-21 mcg/actuation HFA aerosol inhaler Active 2 PUFF INHALATION TWICE A DAY June 03, 2021 12:00am Start: 06-03-2021 take 1 puff(s) by in halation twice daily Fluticasone Propion-Salmeterol (Advair Hfa) 115-21 mcg/actuation HFA aerosol inhaler Active 2 PUFF INHALATION TWICE A DAY June 02, 2021 11:00pm 3 ml liraglutide 6 mg/ml pen injector (4 sources) GLP-1 Receptor Agonist Start: 06-03-2021 Liraglutide (Victoza 2-Cayetano) 0.6 mg/0.1 mL (18 mg/3 mL) pen injector Active 1.8 mg SC DAILY June 03, 2021 12:00am lisinopril 40 mg oral tablet (4 sources) Angiotensin Converting Enzyme Inhibitor Start: 06-03-2021 take 1 tablet by mouth once daily Lisinopril 40 mg tablet Active 40 mg PO DAILY June 03, 2021 12:00am mometasone furoate 0.05 mg/actuat metered dose nasal spray (4 sources) Corticosteroid Start: 06-03-2021 Mometasone (Nasonex) 50 mcg/actuation spray,non-aerosol Active 2 NMA INTRANASAL DAILY as needed for allergy symptoms June 03, 2021 12:00am administer into each nostril Start: 06-03-2021 take 1 spray(s) nasa l route once daily Mometasone (Nasonex) 50 mcg/actuation spray,non-aerosol Active 2 SPRAY INTRANASAL DAILY June 03, 2021 12:00am administer into each nostril ondansetron 4 mg disintegrating oral tablet (2 sources) Serotonin-3 Receptor Antagonist Start: 09-15-2024 take 1 tablet by mouth every eight hours as needed for nausea Ondansetron 4 mg tablet,disintegrating Active 4 mg PO EVERY 8 HOURS NEEDED as needed for Nausea September 15, 2024 1:00am Problems Active Problems Problem Classification Problem Date Documented Da te Episodic/Chronic Asthma (4 sources) Asthma; Translations: [Unspecified asthma, uncomplicated] 06-03-2021 Chronic Cardiac dysrhythmias (12 sources) Multiple premature ventricular complexes; Translations: [Ventricular premature depolarization] 06-27-2021 Chronic Cardiac dysrhythmias (4 sources) Palpitations; Translations: [Palpitations] 06-03-2021 Episodic Conditions associated with dizziness or vertigo (1 source) Dizziness and giddiness; Translations: [Dizziness and giddiness] Onset: 10-16-2024 Episodic Diabetes mellitus without complication (5 sources) Type 2 diabetes mellitus; Translations: [Type 2 diabetes mellitus without complications] Onset: 03-20-2024 06-03-2021 Chronic Disorders of lipid metabolism (4 sources) Mixed hyperlipidemia; Translations: [Mixed hyperlipidemia] 06-03-2021 Chronic Essential hypertension (6 sources) Essential hypertension; Translations: [Essential (primary) hypertension] 06-03-2021 Chronic Fluid and electrolyte disorders (2 sources) Dehydration; Translations: [Dehydration] 09-23-2024 Episodic Malaise and fatigue (1 source) Other malaise; Translations: [Other malaise] Onset: 09-30-2024 Episodic Nausea and vomiting (2 sources) Nausea; Translations: [Nausea] 09-23-2024 Episodic Other lower respiratory disease (2 sources) Tachypnea; Translations: [Tachypnea, not elsewhere classified] 09-23-2024 Episodic Other nervous system disorders (4 sources) Peripheral nerve disease ; Translations: [Polyneuropathy, unspecified] 06-03-2021 Chronic Other upper respiratory infections (1 source) Chronic frontal sinusitis; Translations: [Chronic frontal sinusitis] Onset: 10-31-2024 Chronic Unclassified (1 source) Cough, unspecified; Translations: [Cough, unspecified] Onset: 11-11-2024 Past or Other Problems Problem Classification Problem Date Documented Da te Episodic/Chronic Genitourinary symptoms and ill-defined conditions (1 source) Dysuria; Translations: [Dysuria] Onset: 03-12-2024 Episodic Other screening for suspected conditions (not mental disorders or infectious disease) (2 sources) Encounter for screening for malignant neoplasm of cervix; Translations: [Encounter for screening mammogram for malignant neoplasm of breast] Onset: 04-21-2024 Episodic Results Test Name Value Interpretation Reference Range Facility Vitamin D 1,25-Dihydroxyon 0 11-10-2024 VIT D 1,25 DIHY 38.1 pg/mL Normal 24.8-81.5 [facility] Comment on above: Result Comment: Perf ormed at: [facility] [address] [id number] Transportation Operations Manager: Gopi Dinh MD, Phone: [phone] Performed By: #### L 3300.0960, L509.1000, L100.0100, L506.1001 ####[facility] [address] [place], [place], [id number] 1,25-dihydroxyvitamin D3 [Ma ss/Vol]Ordered By: Marion Hurtado on 11-06-2024 Vitamin D 1,25-Dihydroxy 38.1 pg/mL 24.8-81.5 [facility] Comment on above: Performed at: [facility] [address] [id number] Director: Gopi Dinh MD, Phone: [phone] Absolute neutrophil countOrd ered By: Marion Hurtado on 11-06-2024 Neutrophils (Bld) [#/Vol] 4.7 10*3/uL 2.0-7.7 [facility] Basophil percentageOrdered B y: Marion Hurtado on 11-06-2024 Basophils/100 WBC (Bld) 0.3 % 0-1 [facility] CBC W/Diff, Automatedon 10-12 Absolute Lymph 2.17 X10 3/uL Normal 0.83-4.51 [facility] Comment on above: Performed By: #### L 3300.0960, L509.1000, L100.0100, L506.1001 ####[facility] [address] [place], [address] Absolute Neut 4.7 X10 3/uL Normal 2.0-7.7 [facility] Comment on above: Performed By: #### L 3300.0960, L509.1000, L100.0100, L506.1001 ####[facility] [address] [place], [address] Basophils/100 WBC (Bld) 0.3 % Normal 0-1 [facility] Comment on above: Performed By: #### L 3300.0960, L509.1000, L100.0100, L506.1001 ####[facility] [address] [place], [address] Eosinophils/100 WBC (Bld) 1.7 % Normal 0-5 [facility] Comment on above: Performed By: #### L 3300.0960, L509.1000, L100.0100, L506.1001 ####[facility] [address] [place], [address] Erythrocyte distribution width (RBC) [Ratio] 13.2 % Normal 11.6-14.6 [facility] Comment on above: Performed By: #### L 3300.0960, L509.1000, L100.0100, L506.1001 ####[facility] [address] [place], [address] Hematocrit (Bld) [Volume fraction] 47.7 % High 37-47 [facility] Comment on above: Performed By: #### L 3300.0960, L509.1000, L100.0100, L506.1001 ####[facility] [address] [place], [address] Hemoglobin (Bld) [Mass/Vol] 15.7 g/dL High 12.0-15.0 [facility] Comment on above: Performed By: #### L 3300.0960, L509.1000, L100.0100, L506.1001 ####[facility] [address] [place], [address] IG% 0.800 Normal 0.0-0.9 [facility] Comment on above: Result Comment: IG% - Immature Granulocytes (promyelocytes, myelocytes and metamyelocytes) > 1% indicates that a LEFT SHIFT is Present. Performed By: #### L 3300.0960, L509.1000, L100.0100, L506.1001 ####[facility] [address] [place], [address] Lymphocytes/100 WBC (Bld) 28.5 % Normal 19-41 [facility] Comment on above: Performed By: #### L 3300.0960, L509.1000, L100.0100, L506.1001 ####[facility] [address] [place], [address] MCH (RBC) [Entitic mass] 30.7 pg Normal 27.0-32.0 [facility] Comment on above: Performed By: #### L 3300.0960, L509.1000, L100.0100, L506.1001 ####[facility] [address] [place], [address] MCHC (RBC) [Mass/Vol] 32.9 g/dL Normal 32-36 [facility] Comment on above: Performed By: #### L 3300.0960, L509.1000, L100.0100, L506.1001 ####[facility] [address] [place], [address] MCV (RBC) [Entitic vol] 93.2 fL Normal 81-99 [facility] Comment on above: Performed By: #### L 3300.0960, L509.1000, L100.0100, L506.1001 ####[facility] [address] [place], [address] Monocytes/100 WBC (Bld) 6.8 % Normal 0-10 [facility] Comment on above: Performed By: #### L 3300.0960, L509.1000, L100.0100, L506.1001 ####[facility] [address] [place], [address] Neutrophils/100 WBC (Bld) 61.9 % Normal 47-70 [facility] Comment on above: Performed By: #### L 3300.0960, L509.1000, L100.0100, L506.1001 ####[facility] [address] [place], [address] Nucleated RBC (Bld) [#/Vol] 0 10*3/uL Normal 0-5 [facility] Comment on above: Performed By: #### L 3300.0960, L509.1000, L100.0100, L506.1001 ####[facility] [address] [place], [address] Platelet mean volume (Bld) [Entitic vol] 10.4 fL Normal 6.2-12.0 [facility] Comment on above: Performed By: #### L 3300.0960, L509.1000, L100.0100, L506.1001 ####[facility] [address] [place], [address] Platelets (Bld) [#/Vol] 267 10*3/uL Normal 150-450 [facility] Comment on above: Performed By: #### L 3300.0960, L509.1000, L100.0100, L506.1001 ####[facility] [address] [place], [address] RBC (Bld) [#/Vol] 5.12 10*6/uL Normal 4.2-5.4 [facility] Comment on above: Performed By: #### L 3300.0960, L509.1000, L100.0100, L506.1001 ####[facility] [address] [place], [address] RDW SD 45.2 fl High 35.1-43.9 [facility] Comment on above: Performed By: #### L 3300.0960, L509.1000, L100.0100, L506.1001 ####[facility] [address] [place], [address] WBC (Bld) [#/Vol] 7.6 10*3/uL Normal 4.4-11.0 [facility] Comment on above: Performed By: #### L 3300.0960, L509.1000, L100.0100, L506.1001 ####[facility] [address] [place], [address] Chest PA and Lateralon 11-06 Chest PA and Lateral [facility] Imaging Services [address] [place] [address] Chest PA and Lateral MR#: [id number] Acct: [id number] Name: MARION INFANTE MARVIN Rep #: [id number] : 1965 F 59 From: Derek Lee PCP: Dr. Marion Hurtado DO Status: REG CLI Study: Chest PA and Lateral Date of Exam: 11/06/24 Exam# [id number] Ordering Dr: Marion Hurtado DO PROCEDURE: CHEST PA AND LATERAL 11/06/2024 REASON FOR EXAM: COUGH. TECHNIQUE: As above. COMPARISON: September 15, 2024. FINDINGS: Lungs remain clear. Pulmonary vasculature is not engorged. Cardiomediastinal silhouette is normal in size and contour. Mild atherosclerotic calcification seen in the great vessels. Costophrenic angles are free of fluid. Some degenerative change is incidentally noted in the upper lumbar spine. RAD/Chest PA and Lateral IMPRESSION: No evidence of acute cardiopulmonary disease. Reading Location: [facility] CC: Dr. Marion Hurtado, Director Of Pupil Personnel Program: Signed Normal [facility] Eosinophil percentageOrdered By: Marion Hurtado on 11-06-2024 Eosinophils/100 WBC (Bld) 1.7 % 0-5 [facility] Erythrocyte distribution wid th ratioOrdered By: Marion Hurtado on 11-06-2024 Erythrocyte distribution width (RBC) [Ratio] 13.2 % 11.6-14.6 [facility] Erythrocyte distribution wid th standard deviationOrdered By: Marion Hurtado on 11-06-2024 Erythrocyte distribution width (RBC) [Entitic vol] 45.2 fL High 35.1-43.9 [facility] Hematocrit Auto (Bld) [Volum e fraction]Ordered By: Marion Hurtado on 11-06-2024 Hematocrit (Bld) [Volume fraction] 47.7 % High 37-47 [facility] Hemoglobin measurementOrdere d By: Marion Hurtado on 11-06-2024 Hemoglobin (Bld) [Mass/Vol] 15.7 g/dL High 12.0-15.0 [facility] Immature granulocytes/100 WB C Auto (Bld)Ordered By: Marion Hurtado on 11-06-2024 Immature granulocytes/100 WBC (Bld) 0.800 % 0.0-0.9 [facility] Comment on above: IG% - Immature Granu locytes (promyelocytes, myelocytes and metamyelocytes) > 1% indicates that a LEFT SHIFT is Present. L506.1001on 11-06-2024 Vitamin D 25-OH 70.6 ng/mL Normal 30-100 [facility] Comment on above: Result Comment: Catherine min D Status Deficiency: <20 ng/mL (50nmol/L) Insufficiency: 20-30 ng/mL (50-75 nmol/L) Sufficiency: 30-100 ng/mL (75-250 nmol/L) Toxicity: >100 ng/mL (>250 nmol/L) Performed By: #### L 3300.0960, L509.1000, L100.0100, L506.1001 ####[facility] [address] [place], [address] Lymphocytes Auto (Unsp spec) [#/Vol]Ordered By: Marion Hurtado on 11-06-2024 Lymphocytes (Bld) [#/Vol] 2.17 10*3/uL 0.83-4.51 [facility] Lymphocytes/100 WBC Auto (Un sp spec)Ordered By: Marion Hurtado on 11-06-2024 Lymphocytes/100 WBC (Bld) 28.5 % 19-41 [facility] MCV (mean corpuscular volume ) determinationOrdered By: Marion Hurtado on 11-06-2024 MCV (RBC) [Entitic vol] 93.2 fL 81-99 [facility] Mean corpuscular hemoglobin (MCH) determinationOrdered By: Marion Hurtado on 11-06-2024 MCH (RBC) [Entitic mass] 30.7 pg 27.0-32.0 [facility] Mean corpuscular hemoglobin concentration (MCHC) determinationOrdered By: Marion Hurtado on 11-06-2024 MCHC (RBC) [Mass/Vol] 32.9 g/dL 32-36 [facility] Mean platelet volume determi nationOrdered By: Marion Hurtado on 11-06-2024 Platelet mean volume (Bld) [Entitic vol] 10.4 fL 6.2-12.0 [facility] Monocyte percentageOrdered B y: Marion Hurtado on 11-06-2024 Monocytes/100 WBC (Bld) 6.8 % 0-10 [facility] Neutrophil percentageOrdered By: Marion Hurtado on 11-06-2024 Neutrophils/100 WBC (Bld) 61.9 % 47-70 [facility] Nucleated red blood cell per centageOrdered By: Marion Hurtado on 11-06-2024 Nucleated RBC/100 WBC (Bld) [Ratio] 0 % 0-5 [facility] PTH intactOrdered By: Marion acosta on 11-06-2024 Parathyroid Hormone (Intact) 39 pg/mL [facility] PTHINon 11-06-2024 PTH 39 pg/mL Normal [facility] Comment on above: Performed By: #### L 3300.0960, L509.1000, L100.0100, L506.1001 ####[facility] [address] [place], [address] Platelet countOrdered By: Steffanie Hurtado on 11-06-2024 Platelets (Bld) [#/Vol] 267 10*3/uL 150-450 [facility] RBC Auto (Bld) [#/Vol]Ordere d By: Marion Hurtado on 11-06-2024 RBC (Bld) [#/Vol] 5.12 10*6/uL 4.2-5.4 [facility] Vitamin D, 25-hydroxyOrdered By: Marion Hurtado on 11-06-2024 Vitamin D 25-Hydroxy 70.6 ng/mL 30-100 [facility] Comment on above: Vitamin D StatusDefi ciency: <20 ng/mL (50nmol/L)Insufficiency: 20-30 ng/mL (50-75 nmol/L)Sufficiency: 30-100 ng/mL (75-250 nmol/L)Toxicity: >100 ng/mL (>250 nmol/L) White blood cell (WBC) count Ordered By: Marion Hurtado on 11-06-2024 WBC (Bld) [#/Vol] 7.6 10*3/uL 4.4-11.0 [facility] Sinuses min 3 Viewson 2024 Sinuses min 3 Views [facility] Imaging Services [address] [facility] [address] Sinuses min 3 Views MR#: [id number] Acct: [id number] Name: MARION INFANTE MARVIN Rep #: [id number] : 1965 F 58 From: Darshan Cantrell PCP: Dr. Marion Hurtado DO Status: REG CLI Study: Sinuses min 3 Views Date of Exam: 10/21/24 Exam# [id number] Ordering Dr: Marion Hurtado DO PROCEDURE: Paranasal sinus radiographs REASON FOR EXAM: Pain, sinusitis, vertigo TECHNIQUE: 3 view(s) of the paranasal sinuses COMPARISON: None. FINDINGS: See impression RAD/Sinuses min 3 Views IMPRESSION: Paranasal sinuses are well-aerated. No discrete fluid levels, gross cortical erosions or osseous thickening. Mastoid air cells are relatively pneumatized. Multiple subtle punctate lucencies throughout the skull which are nonspecific but can be seen width hyperparathyroidism. Please correlate. Reading Location: [facility] CC: Dr. Marion Hurtado, DO Director Of Pupil Personnel Program: Signed Normal [facility] Absolute neutrophil countOrd ered By: Marion Hurtado on 10-06-2024 Neutrophils (Bld) [#/Vol] 4.8 10*3/uL 2.0-7.7 [facility] Albumin to globulin ratioOrd ered By: Marion Hurtado on 10-06-2024 Albumin/Globulin [Mass ratio] 1.1 {ratio} 0.9-2.4 [facility] Basophil percentageOrdered B y: Marion Hurtado on 10-06-2024 Basophils/100 WBC (Bld) 0.7 % 0-1 [facility] Bilirubin, totalOrdered By: Marion Hurtado on 10-06-2024 Bilirubin [Mass/Vol] 0.60 mg/dL 0.20-1.00 [facility] Comment on above: For patients on eltr ombopag therapy, use of Dimension [place] TBIL is not recommended. Blood urea nitrogen (BUN)/cr eatinine ratioOrdered By: Marion Hurtado on 10-06-2024 Urea nitrogen/Creatinine [Mass ratio] 20.5 mg/mg High 10-20 [facility] C-reactive protein measureme nt by high sensitivity methodOrdered By: Marion Hurtado on 10-06-2024 C-Reactive Protein Extended Range 5.84 mg/L High 0.0-3.0 [facility] Comment on above: C-Reactive Protein ( CRP) provides useful information for thediagnosis, therapy and monitoring of inflammatory processesand associated diseases. For the evaluation of Relative Riskfor Cardiovascular Disease, a High Sensitivity CRP (HSCRP)should be ordered. CBC W/Diff, Automatedon 09-14 Absolute Lymph 2.06 X10 3/uL Normal 0.83-4.51 [facility] Comment on above: Performed By: #### L 501.9520, L500.4050, L101.9900, L100.0100, L501.6710 #### [facility] [address] [place], [address] Absolute Neut 4.8 X10 3/uL Normal 2.0-7.7 [facility] Comment on above: Performed By: #### L 501.9520, L500.4050, L101.9900, L100.0100, L501.6710 #### [facility] [address] [place], [address] Basophils/100 WBC (Bld) 0.7 % Normal 0-1 [facility] Comment on above: Performed By: #### L 501.9520, L500.4050, L101.9900, L100.0100, L501.6710 #### [facility] [address] [place], [address] Eosinophils/100 WBC (Bld) 0.5 % Normal 0-5 [facility] Comment on above: Performed By: #### L 501.9520, L500.4050, L101.9900, L100.0100, L501.6710 #### [facility] [address] [place], [address] Erythrocyte distribution width (RBC) [Ratio] 12.9 % Normal 11.6-14.6 [facility] Comment on above: Performed By: #### L 501.9520, L500.4050, L101.9900, L100.0100, L501.6710 #### [facility] [address] [place], [address] Hematocrit (Bld) [Volume fraction] 50.0 % High 37-47 [facility] Comment on above: Performed By: #### L 501.9520, L500.4050, L101.9900, L100.0100, L501.6710 #### [facility] [address] [place], [address] Hemoglobin (Bld) [Mass/Vol] 16.7 g/dL High 12.0-15.0 [facility] Comment on above: Performed By: #### L 501.9520, L500.4050, L101.9900, L100.0100, L501.6710 #### [facility] [address] [place], [address] IG% 0.300 Normal 0.0-0.9 [facility] Comment on above: Result Comment: IG% - Immature Granulocytes (promyelocytes, myelocytes and metamyelocytes) > 1% indicates that a LEFT SHIFT is Present. Performed By: #### L 501.9520, L500.4050, L101.9900, L100.0100, L501.6710 #### [facility] [address] [place], [address] Lymphocytes/100 WBC (Bld) 27.3 % Normal 19-41 [facility] Comment on above: Performed By: #### L 501.9520, L500.4050, L101.9900, L100.0100, L501.6710 #### [facility] [address] [place], [address] MCH (RBC) [Entitic mass] 30.6 pg Normal 27.0-32.0 [facility] Comment on above: Performed By: #### L 501.9520, L500.4050, L101.9900, L100.0100, L501.6710 #### [facility] [address] [place], [address] MCHC (RBC) [Mass/Vol] 33.4 g/dL Normal 32-36 [facility] Comment on above: Performed By: #### L 501.9520, L500.4050, L101.9900, L100.0100, L501.6710 #### [facility] [address] [place], [address] MCV (RBC) [Entitic vol] 91.7 fL Normal 81-99 [facility] Comment on above: Performed By: #### L 501.9520, L500.4050, L101.9900, L100.0100, L501.6710 #### [facility] [address] [place], [address] Monocytes/100 WBC (Bld) 7.3 % Normal 0-10 [facility] Comment on above: Performed By: #### L 501.9520, L500.4050, L101.9900, L100.0100, L501.6710 #### [facility] [address] [place], [address] Neutrophils/100 WBC (Bld) 63.9 % Normal 47-70 [facility] Comment on above: Performed By: #### L 501.9520, L500.4050, L101.9900, L100.0100, L501.6710 #### [facility] [address] [place], [address] Nucleated RBC (Bld) [#/Vol] 0 10*3/uL Normal 0-5 [facility] [facility] Comment on above: Performed By: #### L 501.9520, L500.4050, L101.9900, L100.0100, L501.6710 #### [facility] [address] [place], [address] Platelet mean volume (Bld) [Entitic vol] 10.1 fL Normal 6.2-12.0 [facility] Comment on above: Performed By: #### L 501.9520, L500.4050, L101.9900, L100.0100, L501.6710 #### [facility] [address] [place], [address] Platelets (Bld) [#/Vol] 306 10*3/uL Normal 150-450 [facility] Comment on above: Performed By: #### L 501.9520, L500.4050, L101.9900, L100.0100, L501.6710 #### [facility] [address] [place], [address] RBC (Bld) [#/Vol] 5.45 10*6/uL High 4.2-5.4 [facility] Comment on above: Performed By: #### L 501.9520, L500.4050, L101.9900, L100.0100, L501.6710 #### [facility] [address] [place], [address] RDW SD 42.6 fl Normal 35.1-43.9 [facility] Comment on above: Performed By: #### L 501.9520, L500.4050, L101.9900, L100.0100, L501.6710 #### [facility] [address] [place], [address] WBC (Bld) [#/Vol] 7.5 10*3/uL Normal 4.4-11.0 [facility] Comment on above: Performed By: #### L 501.9520, L500.4050, L101.9900, L100.0100, L501.6710 #### [facility] [address] [place], [address] CRPon 10-06-2024 C-REACTIVE PROT 5.84 mg/L High 0.0-3.0 [facility] Comment on above: Result Comment: C-Re active Protein (CRP) provides useful information for the diagnosis, therapy and monitoring of inflammatory processes and associated diseases. For the evaluation of Relative Risk for Cardiovascular Disease, a High Sensitivity CRP (HSCRP) should be ordered. Performed By: #### L 501.9520, L500.4050, L101.9900, L100.0100, L501.6710 #### [facility] [address] [place], [address] Carbon dioxide measurementOr dered By: Mariongreg Hurtado on 10-06-2024 CO2 [Moles/Vol] 26.0 mmol/L 21.0-32.0 [facility] Chloride measurementOrdered By: Mariongreg Hurtado on 10-06-2024 Chloride [Moles/Vol] 101 mmol/L 98-107 [facility] Comprehensive Metabolic Prof ilon 10-06-2024 Albumin [Mass/Vol] 4.2 g/dL Normal 3.2-5.0 [facility] Comment on above: Performed By: #### L 501.9520, L500.4050, L101.9900, L100.0100, L501.6710 #### [facility] [address] [place], [address] Albumin/Globulin [Mass ratio] 1.1 {ratio} Normal 0.9-2.4 [facility] Comment on above: Performed By: #### L 501.9520, L500.4050, L101.9900, L100.0100, L501.6710 #### [facility] [address] [place], [address] ALK P 63 U/L Normal 45-117 [facility] Comment on above: Performed By: #### L 501.9520, L500.4050, L101.9900, L100.0100, L501.6710 #### [facility] [address] [place], [address] ALT [Catalytic activity/Vol] 26 U/L Normal 13-56 [facility] Comment on above: Performed By: #### L 501.9520, L500.4050, L101.9900, L100.0100, L501.6710 #### [facility] [address] [place], [address] AST [Catalytic activity/Vol] 14 U/L Low 15-37 [facility] Comment on above: Performed By: #### L 501.9520, L500.4050, L101.9900, L100.0100, L501.6710 #### [facility] [address] [place], [address] Bilirubin [Mass/Vol] 0.60 mg/dL Normal 0.20-1.00 [facility] Comment on above: Result Comment: For patients on eltrombopag therapy, use of Dimension [place] TBIL is not recommended. Performed By: #### L 501.9520, L500.4050, L101.9900, L100.0100, L501.6710 #### [facility] [address] [place], [address] BUN/CRE 20.5 RATIO High 10-20 [facility] Comment on above: Performed By: #### L 501.9520, L500.4050, L101.9900, L100.0100, L501.6710 #### [facility] [address] [place], [address] CA,Total 9.9 mg/dL Normal 8.5-10.1 [facility] Comment on above: Performed By: #### L 501.9520, L500.4050, L101.9900, L100.0100, L501.6710 #### [facility] [address] [place], [address] Chloride [Moles/Vol] 101 mmol/L Normal 98-107 [facility] Comment on above: Performed By: #### L 501.9520, L500.4050, L101.9900, L100.0100, L501.6710 #### [facility] [address] [place], [address] CO2 [Moles/Vol] 26.0 mmol/L Normal 21.0-32.0 [facility] Comment on above: Performed By: #### L 501.9520, L500.4050, L101.9900, L100.0100, L501.6710 #### [facility] [address] [place], [address] Creatinine [Mass/Vol] 0.98 mg/dL Normal 0.55-1.02 [facility] Comment on above: Result Comment: The validity of the calculated GFR GFRAA in patients over 70 years has not been determined. Clinical correlation is essential. Performed By: #### L 501.9520, L500.4050, L101.9900, L100.0100, L501.6710 #### [facility] [address] [place], [address] EST GFR - AA 75 mL/min Normal >60 [facility] Comment on above: Result Comment: Afri can Maltese GFR Calc Performed By: #### L 501.9520, L500.4050, L101.9900, L100.0100, L501.6710 #### [facility] [address] [place], [address] GAP 7 Normal 5-15 [facility] Comment on above: Performed By: #### L 501.9520, L500.4050, L101.9900, L100.0100, L501.6710 #### [facility] [address] [place], [address] GFR/1.73 sq M.predicted among non-blacks MDRD (S/P/Bld) [Vol rate/Area] 62 mL/min/{1.73_m2} Normal >60 [facility] Comment on above: Result Comment: Non- GFR Calc Performed By: #### L 501.9520, L500.4050, L101.9900, L100.0100, L501.6710 #### [facility] [address] [place], [address] Globulin (S) [Mass/Vol] 3.9 g/dL Normal 2.2-4.2 [facility] Comment on above: Performed By: #### L 501.9520, L500.4050, L101.9900, L100.0100, L501.6710 #### [facility] [address] [place], [address] Glucose [Mass/Vol] 88 mg/dL Normal 74-106 [facility] Comment on above: Performed By: #### L 501.9520, L500.4050, L101.9900, L100.0100, L501.6710 #### [facility] [address] [place], [address] Potassium [Moles/Vol] 5.1 mmol/L Normal 3.5-5.1 [facility] Comment on above: Performed By: #### L 501.9520, L500.4050, L101.9900, L100.0100, L501.6710 #### [facility] [address] [place], [address] Sodium [Moles/Vol] 134 mmol/L Low 136-145 [facility] Comment on above: Performed By: #### L 501.9520, L500.4050, L101.9900, L100.0100, L501.6710 #### [facility] [address] [place], [address] T PROT 8.1 g/dL Normal 6.4-8.2 [facility] Comment on above: Performed By: #### L 501.9520, L500.4050, L101.9900, L100.0100, L501.6710 #### [facility] [address] [place], [address] Urea nitrogen [Mass/Vol] 20 mg/dL High 7-18 [facility] Comment on above: Performed By: #### L 501.9520, L500.4050, L101.9900, L100.0100, L501.6710 #### [facility] [address] [place], [place], [address] Eosinophil percentageOrdered By: Marion Hurtado on 10-06-2024 Eosinophils/100 WBC (Bld) 0.5 % 0-5 [facility] Erythrocyte Sed Rateon 10-06 SED RATE 22 mm/hr Normal 0-30 [facility] Comment on above: Performed By: #### L 501.9520, L500.4050, L101.9900, L100.0100, L501.6710 #### [facility] [address] [place], [place], [address] Erythrocyte distribution wid th ratioOrdered By: Marion Hurtado on 10-06-2024 Erythrocyte distribution width (RBC) [Ratio] 12.9 % 11.6-14.6 [facility] Erythrocyte distribution wid th standard deviationOrdered By: Marion Hurtado on 10-06-2024 Erythrocyte distribution width (RBC) [Entitic vol] 42.6 fL 35.1-43.9 [facility] Erythrocyte sedimentation ra teOrdered By: Marion Hurtado on 10-06-2024 ESR (Bld) [Velocity] 22 mm/h 0-30 [facility] Estimated glomerular filtrat ion rate (GFR) AmericanOrdered By: Maroin Hurtado on 10-06-2024 Estimated GFR (MDRD) Amer 75 mL/min >60 [facility] Comment on above: GFR Calc Glomerular filtration rate ( GFR) estimationOrdered By: Marion Hurtado on 10-06-2024 Estimated GFR (MDRD) Non-Af Amer 62 mL/min >60 [facility] Comment on above: Non- GFR Calc Glucose measurementOrdered B y: Marion Hurtado on 10-06-2024 Glucose [Mass/Vol] 88 mg/dL 74-106 [facility] Hematocrit Auto (Bld) [Volum e fraction]Ordered By: Marion Hurtado on 10-06-2024 Hematocrit (Bld) [Volume fraction] 50.0 % High 37-47 [facility] Hemoglobin measurementOrdere d By: Marion Hurtado on 10-06-2024 Hemoglobin (Bld) [Mass/Vol] 16.7 g/dL High 12.0-15.0 [facility] Immature granulocytes/100 WB C Auto (Bld)Ordered By: Marion Hurtado on 10-06-2024 Immature granulocytes/100 WBC (Bld) 0.300 % 0.0-0.9 [facility] Comment on above: IG% - Immature Granu locytes (promyelocytes, myelocytes and metamyelocytes) > 1% indicates that a LEFT SHIFT is Present. Laboratory - Chemistry and C hemistry - challengeOrdered By: Marion Hurtado on 10-06-2024 AST [Catalytic activity/Vol] 14 U/L Low 15-37 [facility] Lymphocytes Auto (Unsp spec) [#/Vol]Ordered By: Marion Hurtado on 10-06-2024 Lymphocytes (Bld) [#/Vol] 2.06 10*3/uL 0.83-4.51 [facility] Lymphocytes/100 WBC Auto (Un sp spec)Ordered By: Marion Hurtado on 10-06-2024 Lymphocytes/100 WBC (Bld) 27.3 % 19-41 [facility] MCV (mean corpuscular volume ) determinationOrdered By: Marion Hurtado on 10-06-2024 MCV (RBC) [Entitic vol] 91.7 fL 81-99 [facility] Mean corpuscular hemoglobin (MCH) determinationOrdered By: Marion Hurtado on 10-06-2024 MCH (RBC) [Entitic mass] 30.6 pg 27.0-32.0 [facility] Mean corpuscular hemoglobin concentration (MCHC) determinationOrdered By: Marion Hurtado on 10-06-2024 MCHC (RBC) [Mass/Vol] 33.4 g/dL 32-36 [facility] Mean platelet volume determi nationOrdered By: Marion Hurtado on 10-06-2024 Platelet mean volume (Bld) [Entitic vol] 10.1 fL 6.2-12.0 [facility] Monocyte percentageOrdered B y: Marion Hurtado on 10-06-2024 Monocytes/100 WBC (Bld) 7.3 % 0-10 [facility] Neutrophil percentageOrdered By: Marion Hurtado on 10-06-2024 Neutrophils/100 WBC (Bld) 63.9 % 47-70 [facility] Nucleated red blood cell per centageOrdered By: Marion Hrutado on 10-06-2024 Nucleated RBC/100 WBC (Bld) [Ratio] 0 % 0-5 [facility] Platelet countOrdered By: Steffanie Hurtado on 10-06-2024 Platelets (Bld) [#/Vol] 306 10*3/uL 150-450 [facility] Potassium measurementOrdered By: Marion Hurtado on 10-06-2024 Potassium [Moles/Vol] 5.1 mmol/L 3.5-5.1 [facility] RBC Auto (Bld) [#/Vol]Ordere d By: Marion Hurtado on 10-06-2024 RBC (Bld) [#/Vol] 5.45 10*6/uL High 4.2-5.4 [facility] Serum anion gap measurementO rdered By: Marion Hurtado on 10-06-2024 Anion gap [Moles/Vol] 7 mmol/L 5-15 [facility] Serum globulin measurementOr dered By: Marion Hurtado on 10-06-2024 Globulin (S) [Mass/Vol] 3.9 g/dL 2.2-4.2 [facility] Serum or plasma alanine wolfe otransferase (ALT) measurementOrdered By: Marion Hurtado on 10-06-2024 ALT [Catalytic activity/Vol] 26 U/L 13-56 [facility] Serum or plasma albumin almas urement (mass/volume)Ordered By: Marion Hurtado on 10-06-2024 Albumin [Mass/Vol] 4.2 g/dL 3.2-5.0 [facility] Serum or plasma alkaline sammy sphatase measurementOrdered By: Marion Hurtado on 10-06-2024 ALP [Catalytic activity/Vol] 63 U/L 45-117 [facility] Serum or plasma calcium almas urement (mass/volume)Ordered By: Marion Hurtado on 10-06-2024 Calcium [Mass/Vol] 9.9 mg/dL 8.5-10.1 [facility] Serum or plasma creatinine m easurement (mass/volume)Ordered By: Marion Hurtado on 10-06-2024 Creatinine [Mass/Vol] 0.98 mg/dL 0.55-1.02 [facility] Comment on above: The validity of the calculated GFR & GFRAA in patients over 70 years has not been determined. Clinical correlation is essential. Serum or plasma urea nitroge n measurement (mass/volume)Ordered By: Marion Hurtado on 10-06-2024 Urea nitrogen [Mass/Vol] 20 mg/dL High 7-18 [facility] Sodium levelOrdered By: Marion Hurtado on 10-06-2024 Sodium [Moles/Vol] 134 mmol/L Low 136-145 [facility] TSH QnOrdered By: Marion Hurtado on 10-06-2024 Thyroid Stimulating Hormone (TSH) 0.856 uIU/mL 0.358-3.740 [facility] Thyroid Stim Hormone (TSH)on 10-06-2024 TSH 0.856 uIU/mL Normal 0.358-3.740 [facility] Comment on above: Performed By: #### L 501.9520, L500.4050, L101.9900, L100.0100, L501.6710 ####[facility] [address] [facility] [place], [address] Total proteinOrdered By: Lisa Hurtado on 10-06-2024 Protein [Mass/Vol] 8.1 g/dL 6.4-8.2 [facility] White blood cell (WBC) count Ordered By: Marion Hurtado on 10-06-2024 WBC (Bld) [#/Vol] 7.5 10*3/uL 4.4-11.0 [facility] 12 Lead EKGon 09-15-2024 12 Lead EKG [facility] Cardiovascular Services [address] [place] [address] 12 Lead EKG 09/15/24 1142 MR#: [id number] Acct: [id number] Name: MARION INFANTE MARVIN Rep #: [id number] : 1965 58 From: Hipolito Muñoz MD Attending Dr: Status: DEP ER Ordering Dr: Kerwin Benítez Date: 09/15/24 Location: ED Sex: F C Admitted: Test Reason : Blood Pressure : */* mmHG Vent. Rate : 73 BPM Atrial Rate : 73 BPM P-R Int : 150 ms QRS Dur : 70 ms QT Int : 370 ms P-R-T Axes : 31 11 9 degrees QTcB Int : 407 ms Normal sinus rhythm Low voltage QRS Abnormal ECG Confirmed by COREY REAGAN, HIPOLITO ([id number]), editor farm journal SILVER DAVIS ([id number]) on 09/16/2024 8:51:24 AM Referred By: Confirmed By: HIPOLITO MUÑOZ MD 09/16/24 0851 Date Hipolito Muñoz MD CC: DEX Benítez; Dr. Marion Hurtado DO; Dr. Zeb Chin MD Signed Normal [facility] Absolute neutrophil countOrd ered By: Kerwin Benítez on 09-15-2024 Neutrophils (Bld) [#/Vol] 5.1 10*3/uL 2.0-7.7 [facility] Albumin to globulin ratioOrd ered By: Kerwin Benítez on 09-15-2024 Albumin/Globulin [Mass ratio] 1.0 {ratio} 0.9-2.4 [facility] Basophil percentageOrdered B y: Kerwin Benítez on 09-15-2024 Basophils/100 WBC (Bld) 0.4 % 0-1 [facility] Bilirubin Test strip Ql (U)O rdered By: Kerwin Benítez on 09-15-2024 Bilirubin Ql (U) Negative Negative [facility] Bilirubin, totalOrdered By: Kerwin Benítez on 09-15-2024 Bilirubin [Mass/Vol] 0.60 mg/dL 0.20-1.00 [facility] Comment on above: For patients on eltr ombopag therapy, use of Dimension [place] TBIL is not recommended. Blood urea nitrogen (BUN)/cr eatinine ratioOrdered By: Kerwin Benítez on 09-15-2024 Urea nitrogen/Creatinine [Mass ratio] 14.9 mg/mg 10-20 [facility] CBC W/Diff, Automatedon 02-0 3-2025 Absolute Lymph 1.17 X10 3/uL Normal 0.83-4.51 [facility] Comment on above: Performed By: #### L 501.2450, L501.4020, L500.4050, L100.0100 ####[facility] [address] [place], [address] Absolute Neut 5.1 X10 3/uL Normal 2.0-7.7 [facility] Comment on above: Performed By: #### L 501.2450, L501.4020, L500.4050, L100.0100 ####[facility] [address] [place], [address] Basophils/100 WBC (Bld) 0.4 % Normal 0-1 [facility] Comment on above: Performed By: #### L 501.2450, L501.4020, L500.4050, L100.0100 ####[facility] [address] [place], [address] Eosinophils/100 WBC (Bld) 0.4 % Normal 0-5 [facility] Comment on above: Performed By: #### L 501.2450, L501.4020, L500.4050, L100.0100 ####[facility] [address] [place], [address] Erythrocyte distribution width (RBC) [Ratio] 12.6 % Normal 11.6-14.6 [facility] Comment on above: Performed By: #### L 501.2450, L501.4020, L500.4050, L100.0100 ####[facility] [address] [place], [address] Hematocrit (Bld) [Volume fraction] 43.6 % Normal 37-47 [facility] Comment on above: Performed By: #### L 501.2450, L501.4020, L500.4050, L100.0100 ####[facility] [address] [place], [address] Hemoglobin (Bld) [Mass/Vol] 14.9 g/dL Normal 12.0-15.0 [facility] Comment on above: Performed By: #### L 501.2450, L501.4020, L500.4050, L100.0100 ####[facility] [address] [place], [address] IG% 0.900 Normal 0.0-0.9 [facility] Comment on above: Result Comment: IG% - Immature Granulocytes (promyelocytes, myelocytes and metamyelocytes) > 1% indicates that a LEFT SHIFT is Present. Performed By: #### L 501.2450, L501.4020, L500.4050, L100.0100 ####[facility] [address] [place], [address] Lymphocytes/100 WBC (Bld) 17.3 % Low 19-41 [facility] Comment on above: Performed By: #### L 501.2450, L501.4020, L500.4050, L100.0100 ####[facility] [address] [place], [address] MCH (RBC) [Entitic mass] 30.3 pg Normal 27.0-32.0 [facility] Comment on above: Performed By: #### L 501.2450, L501.4020, L500.4050, L100.0100 ####[facility] [address] [place], [address] MCHC (RBC) [Mass/Vol] 34.2 g/dL Normal 32-36 [facility] Comment on above: Performed By: #### L 501.2450, L501.4020, L500.4050, L100.0100 ####[facility] [address] [place], [address] MCV (RBC) [Entitic vol] 88.8 fL Normal 81-99 [facility] Comment on above: Performed By: #### L 501.2450, L501.4020, L500.4050, L100.0100 ####[facility] [address] [place], [address] Monocytes/100 WBC (Bld) 5.0 % Normal 0-10 [facility] Comment on above: Performed By: #### L 501.2450, L501.4020, L500.4050, L100.0100 ####[facility] [address] [place], [address] Neutrophils/100 WBC (Bld) 76.0 % High 47-70 [facility] Comment on above: Performed By: #### L 501.2450, L501.4020, L500.4050, L100.0100 ####[facility] [address] [place], [address] Nucleated RBC (Bld) [#/Vol] 0 10*3/uL Normal 0-5 [facility] Comment on above: Performed By: #### L 501.2450, L501.4020, L500.4050, L100.0100 ####[facility] [address] [place], [address] Platelet mean volume (Bld) [Entitic vol] 9.5 fL Normal 6.2-12.0 [facility] Comment on above: Performed By: #### L 501.2450, L501.4020, L500.4050, L100.0100 ####[facility] [address] [place], [address] Platelets (Bld) [#/Vol] 229 10*3/uL Normal 150-450 [facility] Comment on above: Performed By: #### L 501.2450, L501.4020, L500.4050, L100.0100 ####[facility] [address] [place], [address] RBC (Bld) [#/Vol] 4.91 10*6/uL Normal 4.2-5.4 [facility] Comment on above: Performed By: #### L 501.2450, L501.4020, L500.4050, L100.0100 ####[facility] [address] [place], [address] RDW SD 41.6 fl Normal 35.1-43.9 [facility] Comment on above: Performed By: #### L 501.2450, L501.4020, L500.4050, L100.0100 ####[facility] [address] [place], [address] WBC (Bld) [#/Vol] 6.8 10*3/uL Normal 4.4-11.0 [facility] Comment on above: Performed By: #### L 501.2450, L501.4020, L500.4050, L100.0100 ####[facility] [address] [place] [place], [address] Carbon dioxide measurementOr dered By: Kerwin Benítez on 09-15-2024 CO2 [Moles/Vol] 23.0 mmol/L 21.0-32.0 [facility] Chest PA and Lateralon 09-15 Chest PA and Lateral [facility] Imaging Services [address] [place] [address] Chest PA and Lateral MR#: [id number] Acct: [id number] Name: NARESHMARION LEIGH MARVIN Rep #: [id number] : 1965 F 58 From: Isaac Mathis MD PCP: Dr. Marion Hurtado, Status: [facility] ER Study: Chest PA and Lateral Date of Exam: 09/15/24 Exam# [id number] Ordering Dr: Kerwin Benítez HOUSE CALLS NURSE PRACTITIONER-C EXAM: XR Chest, 2 Views CLINICAL INDICATION: TECHNIQUE: Frontal and lateral views of the chest. COMPARISON: No relevant prior studies available. FINDINGS: LUNGS AND PLEURAL SPACES: Unremarkable. No consolidation. No pneumothorax. HEART: Unremarkable. No cardiomegaly. MEDIASTINUM: Unremarkable. Normal mediastinal contour. BONES/JOINTS: Unremarkable. No acute fracture. RAD/Chest PA and Lateral IMPRESSION: No acute cardiopulmonary process. Reading [facility] CC: DEX Benítez; Dr. Marion Hurtado, Director Of Pupil Personnel Program: Signed Normal [facility] Chloride measurementOrdered By: Kerwin Benítez on 09-15-2024 Chloride [Moles/Vol] 108 mmol/L High 98-107 [facility] Comprehensive Metabolic Prof ilon 09-15-2024 Albumin [Mass/Vol] 3.4 g/dL Normal 3.2-5.0 [facility] Comment on above: Order Comment: 'TROP ' Serial specimen #1, #2 or #3: 1 Performed By: #### L 501.2450, L501.4020, L500.4050, L100.0100 ####[facility] [address] [place], [address] Albumin/Globulin [Mass ratio] 1.0 {ratio} Normal 0.9-2.4 [facility] Comment on above: Order Comment: 'TROP ' Serial specimen #1, #2 or #3: 1 Performed By: #### L 501.2450, L501.4020, L500.4050, L100.0100 ####[facility] [address] [place], [address] ALK P 56 U/L Normal 45-117 [facility] Comment on above: Order Comment: 'TROP ' Serial specimen #1, #2 or #3: 1 Performed By: #### L 501.2450, L501.4020, L500.4050, L100.0100 ####[facility] [address] [place], [address] ALT [Catalytic activity/Vol] 21 U/L Normal 13-56 [facility] Comment on above: Order Comment: 'TROP ' Serial specimen #1, #2 or #3: 1 Performed By: #### L 501.2450, L501.4020, L500.4050, L100.0100 ####[facility] [address] [place], [address] AST [Catalytic activity/Vol] 17 U/L Normal 15-37 [facility] Comment on above: Order Comment: 'TROP ' Serial specimen #1, #2 or #3: 1 Performed By: #### L 501.2450, L501.4020, L500.4050, L100.0100 ####[facility] [address] [place], [address] Bilirubin [Mass/Vol] 0.60 mg/dL Normal 0.20-1.00 [facility] Comment on above: Order Comment: 'TROP ' Serial specimen #1, #2 or #3: 1 Result Comment: For patients on eltrombopag therapy, use of Dimension [place] TBIL is not recommended. Performed By: #### L 501.2450, L501.4020, L500.4050, L100.0100 ####[facility] [address] [place], [address] BUN/CRE 14.9 RATIO Normal 10-20 [facility] Comment on above: Order Comment: 'TROP ' Serial specimen #1, #2 or #3: 1 Performed By: #### L 501.2450, L501.4020, L500.4050, L100.0100 ####[facility] [address] [place], [address] CA,Total 8.9 mg/dL Normal 8.5-10.1 [facility] Comment on above: Order Comment: 'TROP ' Serial specimen #1, #2 or #3: 1 Performed By: #### L 501.2450, L501.4020, L500.4050, L100.0100 ####[facility] [address] [place], [address] Chloride [Moles/Vol] 108 mmol/L High 98-107 [facility] Comment on above: Order Comment: 'TROP ' Serial specimen #1, #2 or #3: 1 Performed By: #### L 501.2450, L501.4020, L500.4050, L100.0100 ####[facility] [address] [place], [address] CO2 [Moles/Vol] 23.0 mmol/L Normal 21.0-32.0 [facility] Comment on above: Order Comment: 'TROP ' Serial specimen #1, #2 or #3: 1 Performed By: #### L 501.2450, L501.4020, L500.4050, L100.0100 ####[facility] [address] [place], [address] Creatinine [Mass/Vol] 1.14 mg/dL High 0.55-1.02 [facility] Comment on above: Order Comment: 'TROP ' Serial specimen #1, #2 or #3: 1 Result Comment: The validity of the calculated GFR GFRAA in patients over 70 years has not been determined. Clinical correlation is essential. Performed By: #### L 501.2450, L501.4020, L500.4050, L100.0100 ####[facility] [address] [place], [address] ECRCL 62.87 ml/min Normal [facility] Comment on above: Order Comment: 'TROP ' Serial specimen #1, #2 or #3: 1 Performed By: #### L 501.2450, L501.4020, L500.4050, L100.0100 ####[facility] [address] [place], [address] EST GFR - AA 63 mL/min Normal >60 [facility] Comment on above: Order Comment: 'TROP ' Serial specimen #1, #2 or #3: 1 Result Comment: Afri can Maltese GFR Calc Performed By: #### L 501.2450, L501.4020, L500.4050, L100.0100 ####[facility] [address] [place], [address] GAP 8 Normal 5-15 [facility] Comment on above: Order Comment: 'TROP ' Serial specimen #1, #2 or #3: 1 Performed By: #### L 501.2450, L501.4020, L500.4050, L100.0100 ####[facility] [address] [place], [address] GFR/1.73 sq M.predicted among non-blacks MDRD (S/P/Bld) [Vol rate/Area] 52 mL/min/{1.73_m2} Low >60 [facility] Comment on above: Order Comment: 'TROP ' Serial specimen #1, #2 or #3: 1 Result Comment: Non- GFR Calc Performed By: #### L 501.2450, L501.4020, L500.4050, L100.0100 ####[facility] [address] [place], [address] Globulin (S) [Mass/Vol] 3.5 g/dL Normal 2.2-4.2 [facility] Comment on above: Order Comment: 'TROP ' Serial specimen #1, #2 or #3: 1 Performed By: #### L 501.2450, L501.4020, L500.4050, L100.0100 ####[facility] [address] [place], [address] Glucose [Mass/Vol] 124 mg/dL High 74-106 [facility] Comment on above: Order Comment: 'TROP ' Serial specimen #1, #2 or #3: 1 Result Comment: Fast ing Glucose result from 100 to 125 mg/dL suggests IMPAIRED HOMEOSTASIS per A.D.A. criteria. Performed By: #### L 501.2450, L501.4020, L500.4050, L100.0100 ####[facility] [address] [place], [address] Potassium [Moles/Vol] 3.8 mmol/L Normal 3.5-5.1 [facility] Comment on above: Order Comment: 'TROP ' Serial specimen #1, #2 or #3: 1 Performed By: #### L 501.2450, L501.4020, L500.4050, L100.0100 ####[facility] [address] [place], [address] Sodium [Moles/Vol] 139 mmol/L Normal 136-145 [facility] Comment on above: Order Comment: 'TROP ' Serial specimen #1, #2 or #3: 1 Performed By: #### L 501.2450, L501.4020, L500.4050, L100.0100 ####[facility] [address] [place], [address] T PROT 6.9 g/dL Normal 6.4-8.2 [facility] Comment on above: Order Comment: 'TROP ' Serial specimen #1, #2 or #3: 1 Performed By: #### L 501.2450, L501.4020, L500.4050, L100.0100 ####[facility] [address] [place], [address] Urea nitrogen [Mass/Vol] 17 mg/dL Normal 7-18 [facility] Comment on above: Order Comment: 'TROP ' Serial specimen #1, #2 or #3: 1 Performed By: #### L 501.2450, L501.4020, L500.4050, L100.0100 ####[facility] [address] [place], [address] D-Dimer Quantitative (DVT/PE )on 09-15-2024 D-DIMER QUANT 0.27 FEU/ug/m Normal 0.27-0.49 [facility] Comment on above: Result Comment: NORM AL D-Dimer level (<0.50) indicates no DVT or PE. Performed By: #### L 300.8000 #### [facility] [address] [place] [place], [address] D-dimer measurement for deep venous thrombosisOrdered By: Kerwin Benítez on 09-15-2024 D-Dimer Quantitative (PE/DVT) 0.27 FEU/ug/m 0.27-0.49 [facility] Comment on above: NORMAL D-Dimer level (<0.50) indicates no DVT or PE. Emergency Department Summary on 09-15-2024 Emergency Department Summary [facility] Medical Records Department [address] [place] [address] Emergency Department Summary 09/15/24 MR#: [id number] Acct: [id number] Name: MARION INFANTE Rep #: [id number] : 1965 58 From: Zeb Chin MD PCP: Dr. Marion Hurtado, DO Status:DEP ER Location: ED HPI History of Present Illness Chief Complaint: General Illness Narrative Narrative: Patient is a 38-year-old female history of type 2 diabetes, hypertension, hyperlipidemia presents to the emerged department for 3 to 4 days of generalized malaise, stomach upset. Patient states today, she is more shaky, she has some chest fluttering, and feels extremely nauseous. Patient denies any shortness of breath, patient denies any documented fever or chills however states she feels hot. She denies sick contacts. Denies any specific diarrhea. [facility] Medical History (Updated 09/15/24 @ 15:[address] Zeb Chni MD) PAC (premature atrial contraction) PVC's (premature ventricular contractions) Ventricular ectopy Peripheral neuropathy Mixed hyperlipidemia Asthma Essential hypertension Type 2 diabetes mellitus Home Medications ???Medication ???Instructions ???Recorded ???Last Taken ???Type albuterol sulfate 90 mcg/actuation 2 puff inhalation Q6H PRN Unknown History aerosol inhaler (Ventolin HFA) clobetasol 0.05 % topical cream 1 applic topical BID PRN Psoriasis 06/03/21 Unknown Rx #15 grams empagliflozin 25 mg tablet 25 mg PO DAILY 06/03/21 Unknown Hi story (Jardiance) fluticasone propionate 115 2 puff inhalation BID #8 grams Unknown Rx mcg-salmeterol 21 mcg/actuation HFA inhaler (Advair HFA) liraglutide 0.6 mg/0.1 mL (18 mg/3 1.8 mg (0.3 mL) subcut DAILY #6 mL 06/03/21 Unknown Rx mL) subcutaneous pen injector (Victoza 2-Cayetano) lisinopril 40 mg tablet 40 mg PO DAILY 06/03/21 Unknown Hi story mometasone 50 mcg/actuation nasal 2 spray intranasal DAILY PRN 05/14 10/03 Unknown Rx spray (Nasonex) allergy symptoms #17 grams alprazolam 0.25 mg tablet (Xanax) 0.25 mg PO DAILY PRN anxiety 06/13 09/02 Unknown History atorvastatin 20 mg tablet 20 mg PO QHS #30 tabs 07/12/21 Unk nown Rx ondansetron 4 mg disintegrating 4 mg PO Q8H PRN PRN Nausea #10 tab s 09/15/24 Unknown Rx tablet Allergy/AdvReac Type Severity Reaction Status Date / Time No Known Allergies Allergy Verified 09/15/24 11:39 Family History Mother Hypertension CAD (coronary artery disease), Onset Age: 60 Father Hypertension Sister Atrial fibrillation Sister Atrial fibrillation Surgical History History of left knee surgery Social History Smoking Status: Former smoker alcohol intake: never substance use type: does not use caffeine: No ROS ROS ED ROS Narrative Constitutional: Negative for fever, weight loss. Positive chills, weakness Eyes: Negative for vision loss, vision change, double vision ENT: Negative for any sore throat, ear pain, congestion Cardiovascular: Negative for any chest pain, tightness, palpitations Respiratory: Negative for any cough, sputum production, hemoptysis, dyspnea, dyspnea on exertion, orthopnea Gastrointestinal: Negative for any abdominal pain, vomiting, diarrhea, constipation, blood in stool, blood in vomit. Positive for nausea : Negative for any urinary frequency, dysuria, retention, blood in urine Muscle skeletal: Negative for any neck pain. Positive back pain Neurological: Negative for any headache, syncope, dizziness Skin: Negative for any rashes, itching, abrasions, lacerations Psychiatric: Negative for any depression, anxiety, stress, suicidal ideation, homicidal ideation Hematologic: Negative for any excessive bruising, easy bleeding EXAM Physical Exam Narrative Exam Narrative: Vital signs reviewed. HEET: Head normocephalic atraumatic, TMs clear bilaterally. Posterior pharynx is clear, dry mucous membranes. Nares clear bilaterally. Neck: Supple with no lymphadenopathy or tenderness. No signs of meningismus. Cardiac: Regular rate and rhythm no murmurs gallops or rubs, equal peripheral pulses bilaterally. Respiratory: Lungs clear to auscultation bilaterally. No chest tenderness. Abdomen: Soft, nontender, nondistended. No abdominal bruit or pulsatile masses. No hepatosplenomegaly Extremities: No peripheral edema, no signs of gross trauma or deformity. Active full range of motion of all extremities. Neuro: Cranial nerves II through XII intact, no focal neurological deficits. Skin: Clean dry and intact with no rash, purpura, petechiae, vesicles or pustules. Backs/flank: No CVA tenderness, no midline spinal tenderness, no deformity. Psych: Normal mood and affect. (more content not included)... Normal [facility] Eosinophil percentageOrdered By: Kerwin Benítez on 09-15-2024 Eosinophils/100 WBC (Bld) 0.4 % 0-5 [facility] Epithelial cells.squamous LM Ql (Urine sed)Ordered By: Kerwin Benítez on 09-15-2024 Epithelial cells.squamous LM.HPF (Urine sed) [#/Area] 0 /[HPF] 5-10 [facility] Erythrocyte distribution wid th ratioOrdered By: Kerwin Benítez on 09-15-2024 Erythrocyte distribution width (RBC) [Ratio] 12.6 % 11.6-14.6 [facility] Erythrocyte distribution wid th standard deviationOrdered By: Kerwin Benítez on 09-15-2024 Erythrocyte distribution width (RBC) [Entitic vol] 41.6 fL 35.1-43.9 [facility] Estimated glomerular filtrat ion rate (GFR) AmericanOrdered By: Kerwin Benítez on 09-15-2024 Estimated GFR (MDRD) Amer 63 mL/min >60 [facility] Comment on above: GFR Calc Estimation of creatinine mari aranceOrdered By: Kerwin Benítez on 09-15-2024 Estimated Creatinine Clearance Calc 62.87 ml/min [facility] Glomerular filtration rate ( GFR) estimationOrdered By: Kerwin Benítez on 09-15-2024 Estimated GFR (MDRD) Non-Af Amer 52 mL/min Low >60 [facility] Comment on above: Non- GFR Calc Glucose Ql (U)Ordered By: Ron Benítez on 09-15-2024 Glucose (U) [Mass/Vol] 1000 mg/dL High Normal [facility] Glucose measurementOrdered B y: Kerwin Benítez on 09-15-2024 Glucose [Mass/Vol] 124 mg/dL High 74-106 [facility] Comment on above: Fasting Glucose resu lt from 100 to 125 mg/dL suggests IMPAIRED HOMEOSTASIS per A.D.A. criteria. Hematocrit Auto (Bld) [Volum e fraction]Ordered By: Kerwin Benítez on 09-15-2024 Hematocrit (Bld) [Volume fraction] 43.6 % 37-47 [facility] Hemoglobin measurementOrdere d By: Kerwin Benítez on 09-15-2024 Hemoglobin (Bld) [Mass/Vol] 14.9 g/dL 12.0-15.0 [facility] Immature granulocytes/100 WB C Auto (Bld)Ordered By: Kerwin Benítez on 09-15-2024 Immature granulocytes/100 WBC (Bld) 0.900 % 0.0-0.9 [facility] Comment on above: IG% - Immature Granu locytes (promyelocytes, myelocytes and metamyelocytes) > 1% indicates that a LEFT SHIFT is Present. Influenza virus A and B and SARS-CoV-2 (COVID-19) and Respiratory syncytial virus RNAOrdered By: Kerwin Benítez on 09-15-2024 SARS-CoV-2 (COVID-19) RNA LUCIA+probe Ql (Unsp spec) [facility] Ketones Test strip Ql (U)Ord ered By: Kerwin Benítez on 09-15-2024 Ketones Ql (U) 5 mg/dl High Negative [facility] L501.4020on 02-03-2025 TROPONIN-I HS 4 pg/mL Normal 3.0-54.0 [facility] Comment on above: Order Comment: 'TROP ' Serial specimen #1, #2 or #3: 1 Result Comment: Rosemary givens Note: New Test Units and Gender Specific Reference Ranges. For more information see Policy Stat Procedure [facility] High Sensitivity Troponin (TNIH) and attachments. Performed By: #### L 501.2450, L501.4020, L500.4050, L100.0100 ####[facility] [address] [place], [address] Laboratory - Chemistry and C hemistry - challengeOrdered By: Kerwin Benítez on 09-15-2024 AST [Catalytic activity/Vol] 17 U/L 15-37 [facility] Lipaseon 09-15-2024 Lipase [Catalytic activity/Vol] 81 U/L High 13-75 [facility] Comment on above: Order Comment: 'TROP ' Serial specimen #1, #2 or #3: 1 Result Comment: Rosemary givens note: LIPASE revised reference range effective 22. New Lipase methodology. Expected to produce lower values than the previous assay method. NEW Reference Range: 13 - 75 U/L Performed By: #### L 501.2450, L501.4020, L500.4050, L100.0100 ####[facility] [address] [place], [place], [address] Lipase measurementOrdered By : Kerwin Benítez on 09-15-2024 Lipase [Catalytic activity/Vol] 81 U/L High 13-75 [facility] Comment on above: Please note:LIPASE r evised reference range effective 22. New Lipase methodology. Expected to produce lower values than the previous assay method. NEW Reference Range: 13 - 75 U/L Lymphocytes Auto (Unsp spec) [#/Vol]Ordered By: Kerwin Benítez on 09-15-2024 Lymphocytes (Bld) [#/Vol] 1.17 10*3/uL 0.83-4.51 [facility] Lymphocytes/100 WBC Auto (Un sp spec)Ordered By: Kerwin Benítez on 09-15-2024 Lymphocytes/100 WBC (Bld) 17.3 % Low 19-41 [facility] M100.678on 09-15-2024 M100.678 Pending SARS-CoV-2 (COVID 19) Negative INFLUENZA A Negative INFLUENZA B Negative RSV PCR Negative Normal [facility] Comment on above: Performed By: #### M 100.678 ####[facility] [address] [place], [address] MCV (mean corpuscular volume ) determinationOrdered By: Kerwin Benítez on 09-15-2024 MCV (RBC) [Entitic vol] 88.8 fL 81-99 [facility] Mean corpuscular hemoglobin (MCH) determinationOrdered By: Kerwin Benítez on 09-15-2024 MCH (RBC) [Entitic mass] 30.3 pg 27.0-32.0 [facility] Mean corpuscular hemoglobin concentration (MCHC) determinationOrdered By: Kerwin Benítez on 09-15-2024 MCHC (RBC) [Mass/Vol] 34.2 g/dL 32-36 [facility] Mean platelet volume determi nationOrdered By: Kerwin Benítez on 09-15-2024 Platelet mean volume (Bld) [Entitic vol] 9.5 fL 6.2-12.0 [facility] Microscopic analysis of urin e for red blood cells (RBC)Ordered By: Kerwin Benítez on 09-15-2024 Urine RBC 0 SEEN /hpf 0-5 [facility] Monocyte percentageOrdered B y: Kerwin Benítez on 09-15-2024 Monocytes/100 WBC (Bld) 5.0 % 0-10 [facility] Mucus LM Ql (Urine sed)Order ed By: Kerwin Benítez on 09-15-2024 Mucus Ql (Urine sed) 0 SEEN /hpf [facility] Neutrophil percentageOrdered By: Kerwin Benítez on 09-15-2024 Neutrophils/100 WBC (Bld) 76.0 % High 47-70 [facility] Nitrite Test strip Ql (U)Ord ered By: Kerwin Benítez on 09-15-2024 Nitrite Ql (U) Negative Negative [facility] Nucleated red blood cell per centageOrdered By: Kerwin Benítez on 09-15-2024 Nucleated RBC/100 WBC (Bld) [Ratio] 0 % 0-5 [facility] Platelet countOrdered By: Ron Benítez on 09-15-2024 Platelets (Bld) [#/Vol] 229 10*3/uL 150-450 [facility] Potassium measurementOrdered By: Kerwin Benítez on 09-15-2024 Potassium [Moles/Vol] 3.8 mmol/L 3.5-5.1 [facility] Protein Test strip Ql (U)Ord ered By: Kerwin Benítez on 09-15-2024 Protein Ql (U) Negative Negative [facility] RBC Auto (Bld) [#/Vol]Ordere d By: Kerwin Benítez on 09-15-2024 RBC (Bld) [#/Vol] 4.91 10*6/uL 4.2-5.4 [facility] Serum anion gap measurementO rdered By: Kerwin Benítez on 09-15-2024 Anion gap [Moles/Vol] 8 mmol/L 5-15 [facility] Serum globulin measurementOr dered By: Kerwin Benítez on 09-15-2024 Globulin (S) [Mass/Vol] 3.5 g/dL 2.2-4.2 [facility] Serum or plasma alanine wolfe otransferase (ALT) measurementOrdered By: Kerwin Benítez on 09-15-2024 ALT [Catalytic activity/Vol] 21 U/L 13-56 [facility] Serum or plasma albumin almas urement (mass/volume)Ordered By: Kerwin Benítez on 09-15-2024 Albumin [Mass/Vol] 3.4 g/dL 3.2-5.0 [facility] Serum or plasma alkaline sammy sphatase measurementOrdered By: Kerwin Benítez on 09-15-2024 ALP [Catalytic activity/Vol] 56 U/L 45-117 [facility] Serum or plasma calcium almas urement (mass/volume)Ordered By: Kerwin Benítez on 09-15-2024 Calcium [Mass/Vol] 8.9 mg/dL 8.5-10.1 [facility] Serum or plasma creatinine m easurement (mass/volume)Ordered By: Kerwin Benítez on 09-15-2024 Creatinine [Mass/Vol] 1.14 mg/dL High 0.55-1.02 [facility] Comment on above: The validity of the calculated GFR & GFRAA in patients over 70 years has not been determined. Clinical correlation is essential. Serum or plasma urea nitroge n measurement (mass/volume)Ordered By: Kerwin Benítez on 09-15-2024 Urea nitrogen [Mass/Vol] 17 mg/dL 7-18 [facility] Sodium levelOrdered By: Kerwin Benítez on 09-15-2024 Sodium [Moles/Vol] 139 mmol/L 136-145 [facility] Total proteinOrdered By: Gale Benítez on 09-15-2024 Protein [Mass/Vol] 6.9 g/dL 6.4-8.2 [facility] Troponin IOrdered By: Kerwin hernández on 09-15-2024 Troponin I High Sensitivity 4 pg/mL 3.0-54.0 [facility] Comment on above: Please Note: New Joselyn t Units and Gender Specific Reference Ranges. For more information see Policy Stat Procedure [facility] High Sensitivity Troponin (TNIH) and attachments. Urinalysis, Completeon 09-15 EPI,SQUAMOUS 0-5 SEEN Normal 5-10 [facility] Comment on above: Order Comment: CLEAN CATCH Performed By: #### L 400.0001 ####[facility] [address] [place], [address] WBC 0-5 SEEN Normal 0-5 [facility] Comment on above: Order Comment: CLEAN CATCH Performed By: #### L 400.0001 ####[facility] [address] [place], [address] BACTERIA 0 SEEN Normal None Seen [facility] Comment on above: Order Comment: CLEAN CATCH Performed By: #### L 400.0001 ####[facility] [address] [place], [address] Mucus Ql (Urine sed) 0 SEEN Normal [facility] Comment on above: Order Comment: CLEAN CATCH Performed By: #### L 400.0001 ####[facility] [address] [place], [address] RBC 0 SEEN Normal 0-5 [facility] Comment on above: Order Comment: CLEAN CATCH Performed By: #### L 400.0001 ####[facility] [address] [place] [place], [address] Urine blood detectionOrdered By: Kerwin Benítez on 09-15-2024 Urine Occult Blood Negative Negative [facility] Urine clarityOrdered By: Gale Benítez on 09-15-2024 Clarity (U) Clear Clear [facility] Urine color determinationOrd ered By: Kerwin Benítez on 09-15-2024 Color (U) Yellow Yellow [facility] Urine leukocyte esterase det ection by dipstickOrdered By: Kerwin Benítez on 09-15-2024 Leukocyte esterase Test strip Ql (U) 100 /ul High Negative [facility] Urine pHOrdered By: Kerwin rowley on 09-15-2024 pH (U) 7.0 [pH] 5.0 - 8.0 [facility] Urine sediment bacteria coun t by microscopy (number/high power field)Ordered By: Kerwin Benítez on 09-15-2024 Bacteria LM.HPF (Urine sed) [#/Area] 0 /[HPF] None Seen [facility] Urine specific gravity measu rementOrdered By: Kerwin Benítez on 09-15-2024 Specific gravity (U) [Rel density] 1.005 1.002-1.030 [facility] Urobilinogen Ql (U)Ordered B y: Kerwin Benítez on 09-15-2024 Urine Urobilinogen Normal mg/dl Normal [facility] White blood cell (WBC) count Ordered By: Kerwin Benítez on 09-15-2024 WBC (Bld) [#/Vol] 6.8 10*3/uL 4.4-11.0 [facility] White blood cell countOrdere d By: Kerwin Benítez on 09-15-2024 Urine WBC 0-5 SEEN /hpf 0-5 [facility] PAP IG w/Reflex HPV GDLNon 1 1-07-2024 ADEQ Comment Normal . [facility] Comment on above: Order Comment: Speci men Comment: [id number] Comment: Source.............Cervix;EndocervixSpecimen Comment: No. of containers..01 ThinPrep Vial Result Comment: Sati sfactory for evaluation. Endocervical and/or squamous metaplastic cells (endocervical component) are present. Performed By: #### L 7400.0290 ####[facility] [address] [facility] [id number] Age Gdln ACOG T 30-[address] [facility] Comment on above: Order Comment: Speci men Comment: [id number] Comment: Source.............Cervix;EndocervixSpecimen Comment: No. of containers..01 ThinPrep Vial Performed By: #### L 7400.0290 ####[facility] [address] [place] [address] COMM . Normal . [facility] Comment on above: Order Comment: Speci men Comment: [id number] Comment: Source.............Cervix;EndocervixSpecimen Comment: No. of containers..01 ThinPrep Vial Performed By: #### L 7400.0290 ####[facility] [address] [place], [address] COMMENT Comment Normal . [facility] Comment on above: Order Comment: Speci men Comment: [id number] Comment: Source.............Cervix;EndocervixSpecimen Comment: No. of containers..01 ThinPrep Vial Result Comment: This liquid based ThinPrep(R) pap test was screened with the use of an image guided system. Performed By: #### L 7400.0290 ####[facility] [address] [place] [id number] DIAG Comment Normal . [facility] Comment on above: Order Comment: Speci men Comment: [id number] Comment: Source.............Cervix;EndocervixSpecimen Comment: No. of containers..01 ThinPrep Vial Result Comment: NEGA TIVE FOR INTRAEPITHELIAL LESION OR MALIGNANCY. Performed By: #### L 7400.0290 ####[facility] [address] [place], [place], [address] HPV APTIMA, HR Negative Normal Negative [facility] Comment on above: Order Comment: Speci men Comment: [id number] Comment: Source.............Cervix;EndocervixSpecimen Comment: No. of containers..01 ThinPrep Vial Result Comment: This nucleic acid amplification test detects fourteen high- risk HPV types (16,18,31,33,35,39,45,51,52,56,58,59,66,68) without differentiation. Performed By: #### L 7400.0290 ####[facility] [address] [facility] [address] [place], [place], [address] HPV Oma Rfx Comment Normal . [facility] Comment on above: Order Comment: Speci men Comment: [id number] Comment: Source.............Cervix;EndocervixSpecimen Comment: No. of containers..01 ThinPrep Vial Result Comment: Crit eria not met, HPV Genotype not performed. Performed at: =[address] [id number] Transportation Operations Manager: Carmen Banegas MD, Phone: [phone] Performed at: [address], [place] [id number] Transportation Operations Manager: Carmen Banegas MD, Phone: [phone] Performed By: #### L 7400.0290 ####[facility] [address] [facility] [place], [place], [address] PAPSMR Comment Normal . [facility] Comment on above: Order Comment: Speci men Comment: [id number] Comment: Source.............Cervix;EndocervixSpecimen Comment: No. of containers..01 ThinPrep Vial Result Comment: The Pap smear is a screening test designed to aid in the detection of premalignant and malignant conditions of the uterine cervix. It is not a diagnostic procedure and should not be used as the sole means of detecting cervical cancer. Both false-positive and false-negative reports do occur. Performed By: #### L 7400.0290 ####[facility] [address] [facility] [place], [place], [address] PERFORM Comment Normal . [facility] Comment on above: Order Comment: Speci men Comment: [id number] Comment: Source.............Cervix;EndocervixSpecimen Comment: No. of containers..01 ThinPrep Vial Result Comment: Jeanna Nguyen, [employer] (ASCP) Performed By: #### L 7400.0290 ####[facility] [address] [facility] [place], [place], [id number] SCRN MAMM (CAD)W/KAHLIL BILATo n 04-08-2024 SCRN MAMM (CAD)W/KAHLIL BILAT [facility] Imaging Services [address] [place], [place] [address] SCRN MAMM (CAD)W/KAHLIL BILAT MR#: [id number] Acct: [id number] Name: NARESHMARION JO Rep #: [id number] : 1965 F [id number] From: Jameel salinas MD PCP: Dr. Marion Hurtado, DO Status: [facility] Study: SCRN MAMM (CAD)W/KAHLIL BILAT Date of Exam: 03/14 03/05 Exam# [id number] Ordering Dr: Marion Hurtado DO [id number] MAMMOGRAPHY - BILATERAL SCREENING REASON FOR EXAM: Female, 58 years old. Routine annual screening examination. PERTINENT HISTORY: Non-contributory. TECHNIQUE: Digital bilateral breast kahlil (3D mammographic acquisition) in the CC and MLO projections. 2-D mediolateral oblique (MLO) and craniocaudad (CC) views of both breasts were obtained. CAD: Full Field Digital Mammography with Computer Added Detection was performed. COMPARISON: Comparison is made with prior study dated September 26, 2011. FINDINGS: Breast Composition: The breasts are almost entirely fatty. There are no dominant masses or suspicious calcifications. Stable small bilateral axillary lymph nodes. No other significant abnormalities are identified. There has been no significant change since the prior study. BI/SCRN MAMM (CAD)W/KAHLIL BILAT IMPRESSION: Stable bilateral screening mammogram. Yearly follow-up mammogram recommended. (A) ASSESSMENT CATEGORY: BIRADS Category 2: Benign. A letter regarding these results will be sent to the patient by the facility within 30 days. Approximately 10% of breast cancers are not detected by mammography. A normal mammogram should not delay biopsy of a clinically suspicious abnormality. [id number] Electronically Signed: Jameel Rodriguez MD at 8:24 EDT , CC: Dr. Marion Hurtado DO Director Of Pupil Personnel Program: Signed Normal [facility] CBC W/Diff, Automatedon 07-2 Absolute Lymph 1.92 X10 3/uL Normal 0.83-4.51 [facility] Comment on above: Performed By: #### L 501.9985, L500.4050, L100.0100, L502.0250, L500.4100 ####[facility] [address] [place], [address] Absolute Neut 3.1 X10 3/uL Normal 2.0-7.7 [facility] Comment on above: Performed By: #### L 501.9985, L500.4050, L100.0100, L502.0250, L500.4100 ####[facility] [address] [place], [address] Basophils/100 WBC (Bld) 0.5 % Normal 0-1 [facility] Comment on above: Performed By: #### L 501.9985, L500.4050, L100.0100, L502.0250, L500.4100 ####[facility] [address] [place], [address] Eosinophils/100 WBC (Bld) 1.4 % Normal 0-5 [facility] Comment on above: Performed By: #### L 501.9985, L500.4050, L100.0100, L502.0250, L500.4100 ####[facility] [address] [place], [address] Erythrocyte distribution width (RBC) [Ratio] 12.8 % Normal 11.6-14.6 [facility] Comment on above: Performed By: #### L 501.9985, L500.4050, L100.0100, L502.0250, L500.4100 ####[facility] [address] [place], [address] Hematocrit (Bld) [Volume fraction] 46.0 % Normal 37-47 [facility] Comment on above: Performed By: #### L 501.9985, L500.4050, L100.0100, L502.0250, L500.4100 ####[facility] [address] [place], [address] Hemoglobin (Bld) [Mass/Vol] 14.9 g/dL Normal 12.0-15.0 [facility] Comment on above: Performed By: #### L 501.9985, L500.4050, L100.0100, L502.0250, L500.4100 ####[facility] [address] [place], [address] IG% 0.400 Normal 0.0-0.9 [facility] Comment on above: Result Comment: IG% - Immature Granulocytes (promyelocytes, myelocytes and metamyelocytes) > 1% indicates that a LEFT SHIFT is Present. Performed By: #### L 501.9985, L500.4050, L100.0100, L502.0250, L500.4100 ####[facility] [address] [place], [address] Lymphocytes/100 WBC (Bld) 34.7 % Normal 19-41 [facility] Comment on above: Performed By: #### L 501.9985, L500.4050, L100.0100, L502.0250, L500.4100 ####[facility] [address] [place], [address] MCH (RBC) [Entitic mass] 29.6 pg Normal 27.0-32.0 [facility] Comment on above: Performed By: #### L 501.9985, L500.4050, L100.0100, L502.0250, L500.4100 ####[facility] [address] [place], [address] MCHC (RBC) [Mass/Vol] 32.4 g/dL Normal 32-36 [facility] Comment on above: Performed By: #### L 501.9985, L500.4050, L100.0100, L502.0250, L500.4100 ####[facility] [address] [place], [address] MCV (RBC) [Entitic vol] 91.5 fL Normal 81-99 [facility] Comment on above: Performed By: #### L 501.9985, L500.4050, L100.0100, L502.0250, L500.4100 ####[facility] [address] [place], [address] Monocytes/100 WBC (Bld) 6.9 % Normal 0-10 [facility] Comment on above: Performed By: #### L 501.9985, L500.4050, L100.0100, L502.0250, L500.4100 ####[facility] [address] [place], [address] Neutrophils/100 WBC (Bld) 56.1 % Normal 47-70 [facility] Comment on above: Performed By: #### L 501.9985, L500.4050, L100.0100, L502.0250, L500.4100 ####[facility] [address] [place], [address] Nucleated RBC (Bld) [#/Vol] 0 10*3/uL Normal 0-5 [facility] Comment on above: Performed By: #### L 501.9985, L500.4050, L100.0100, L502.0250, L500.4100 ####[facility] [address] [place], [address] Platelet mean volume (Bld) [Entitic vol] 9.8 fL Normal 6.2-12.0 [facility] Comment on above: Performed By: #### L 501.9985, L500.4050, L100.0100, L502.0250, L500.4100 ####[facility] [address] [place], [address] Platelets (Bld) [#/Vol] 241 10*3/uL Normal 150-450 [facility] Comment on above: Performed By: #### L 501.9985, L500.4050, L100.0100, L502.0250, L500.4100 ####[facility] [address] [place], [address] RBC (Bld) [#/Vol] 5.03 10*6/uL Normal 4.2-5.4 [facility] Comment on above: Performed By: #### L 501.9985, L500.4050, L100.0100, L502.0250, L500.4100 ####[facility] [address] [place], [address] RDW SD 42.1 fl Normal 35.1-43.9 [facility] Comment on above: Performed By: #### L 501.9985, L500.4050, L100.0100, L502.0250, L500.4100 ####[facility] [address] [place], [address] WBC (Bld) [#/Vol] 5.5 10*3/uL Normal 4.4-11.0 [facility] Comment on above: Performed By: #### L 501.9985, L500.4050, L100.0100, L502.0250, L500.4100 ####[facility] [address] [place], [address] Comprehensive Metabolic Prof [facility] 03-01-2024 Albumin [Mass/Vol] 3.6 g/dL Normal 3.2-5.0 [facility] Comment on above: Performed By: #### L 501.9985, L500.4050, L100.0100, L502.0250, L500.4100 ####[facility] [address] [place], [address] Albumin/Globulin [Mass ratio] 1.1 {ratio} Normal 0.9-2.4 [facility] Comment on above: Performed By: #### L 501.9985, L500.4050, L100.0100, L502.0250, L500.4100 ####[facility] [address] [place], [address] ALK P 52 U/L Normal 45-117 [facility] Comment on above: Performed By: #### L 501.9985, L500.4050, L100.0100, L502.0250, L500.4100 ####[facility] [address] [place], [address] ALT [Catalytic activity/Vol] 21 U/L Normal 13-56 [facility] Comment on above: Performed By: #### L 501.9985, L500.4050, L100.0100, L502.0250, L500.4100 ####[facility] [address] [place], [address] AST [Catalytic activity/Vol] 15 U/L Normal 15-37 [facility] Comment on above: Performed By: #### L 501.9985, L500.4050, L100.0100, L502.0250, L500.4100 ####[facility] [address] [place], [address] Bilirubin [Mass/Vol] 0.50 mg/dL Normal 0.20-1.00 [facility] Comment on above: Result Comment: For patients on eltrombopag therapy, use of Dimension [place] TBIL is not recommended. Performed By: #### L 501.9985, L500.4050, L100.0100, L502.0250, L500.4100 ####[facility] [address] [place], [address] BUN/CRE 16.2 RATIO Normal 10-20 [facility] Comment on above: Performed By: #### L 501.9985, L500.4050, L100.0100, L502.0250, L500.4100 ####[facility] [address] [place], [address] CA,Total 8.7 mg/dL Normal 8.5-10.1 [facility] Comment on above: Performed By: #### L 501.9985, L500.4050, L100.0100, L502.0250, L500.4100 ####[facility] [address] [place], [address] Chloride [Moles/Vol] 103 mmol/L Normal 98-107 [facility] Comment on above: Performed By: #### L 501.9985, L500.4050, L100.0100, L502.0250, L500.4100 ####[facility] [address] [place], [address] CO2 [Moles/Vol] 29.0 mmol/L Normal 21.0-32.0 [facility] Comment on above: Performed By: #### L 501.9985, L500.4050, L100.0100, L502.0250, L500.4100 ####[facility] [address] [place], [address] Creatinine [Mass/Vol] 0.86 mg/dL Normal 0.55-1.02 [facility] Comment on above: Result Comment: The validity of the calculated GFR GFRAA in patients over 70 years has not been determined. Clinical correlation is essential. Performed By: #### L 501.9985, L500.4050, L100.0100, L502.0250, L500.4100 ####[facility] [address] [place], [address] EST GFR - AA 86 mL/min Normal >60 [facility] Comment on above: Result Comment: Afri can [place] GFR Calc Performed By: #### L 501.9985, L500.4050, L100.0100, L502.0250, L500.4100 ####[facility] [address] [place], [address] GAP 6 Normal 5-15 [facility] Comment on above: Performed By: #### L 501.9985, L500.4050, L100.0100, L502.0250, L500.4100 ####[facility] [address] [place], [address] GFR/1.73 sq M.predicted among non-blacks MDRD (S/P/Bld) [Vol rate/Area] 71 mL/min/{1.73_m2} Normal >60 [facility] Comment on above: Result Comment: Non- GFR Calc Performed By: #### L 501.9985, L500.4050, L100.0100, L502.0250, L500.4100 ####[facility] [address] [place], [address] Globulin (S) [Mass/Vol] 3.3 g/dL Normal 2.2-4.2 [facility] Comment on above: Performed By: #### L 501.9985, L500.4050, L100.0100, L502.0250, L500.4100 ####[facility] [address] [place], [address] Glucose [Mass/Vol] 77 mg/dL Normal 74-106 [facility] Comment on above: Performed By: #### L 501.9985, L500.4050, L100.0100, L502.0250, L500.4100 ####[facility] [address] [place], [address] Potassium [Moles/Vol] 3.8 mmol/L Normal 3.5-5.1 [facility] Comment on above: Performed By: #### L 501.9985, L500.4050, L100.0100, L502.0250, L500.4100 ####[facility] [address] [place], [address] Sodium [Moles/Vol] 138 mmol/L Normal 136-145 [facility] Comment on above: Performed By: #### L 501.9985, L500.4050, L100.0100, L502.0250, L500.4100 ####[facility] [address] [place], [address] T PROT 6.9 g/dL Normal 6.4-8.2 [facility] Comment on above: Performed By: #### L 501.9985, L500.4050, L100.0100, L502.0250, L500.4100 ####[facility] [address] [place], [address] Urea nitrogen [Mass/Vol] 14 mg/dL Normal 7-18 [facility] Comment on above: Performed By: #### L 501.9985, L500.4050, L100.0100, L502.0250, L500.4100 ####[facility] [address] [place], [address] Hemoglobin A1con 03-01-2024 HbA1c (Bld) [Mass fraction] 4.9 % Normal 3.8-5.6 [facility] Comment on above: Result Comment: Norm al < 5.7 % Prediabetic 5.7 - 6.4 % Diabetic >or= 6.5 % Please note range changes. Performed By: #### L 501.9985, L500.4050, L100.0100, L502.0250, L500.4100 ####[facility] [address] [place], [address] Lipid Profileon 03-01-2024 Cholesterol [Mass/Vol] 205 mg/dL High 200 [facility] Comment on above: Result Comment: <200 mg/dL Desirable 200-240 mg/dL Borderline >240 mg/dL High Risk Performed By: #### L 501.9985, L500.4050, L100.0100, L502.0250, L500.4100 ####[facility] [address] [place], [address] Cholesterol in HDL [Mass/Vol] 55 mg/dL Normal [facility] Comment on above: Result Comment: The drugs N-Acetylcysteine and Metamizole may falsely depress this assay. Reference Range HDL <40 mg/dL Low HDL Cholesterol HDL >or= 60 mg/dL High HDL Cholesterol Performed By: #### L 501.9985, L500.4050, L100.0100, L502.0250, L500.4100 ####[facility] [address] [place], [address] Cholesterol in LDL [Mass/Vol] 128 mg/dL Normal 0-130 [facility] Comment on above: Performed By: #### L 501.9985, L500.4050, L100.0100, L502.0250, L500.4100 ####[facility] [address] [place], [address] Cholesterol in VLDL [Mass/Vol] 22 mg/dL Normal 5-40 [facility] Comment on above: Performed By: #### L 501.9985, L500.4050, L100.0100, L502.0250, L500.4100 ####[facility] [address] [place], [address] Triglyceride [Mass/Vol] 110 mg/dL Normal [facility] Comment on above: Result Comment: The drugs N-Acetylcysteine and Metamizole may falsely depress this assay. Serum Triglycerides Reference Interval Normal <150 mg/dL Borderline high 150 - 199 mg/dL High 200 - 499 mg/dL Very High > or = 500 mg/dL Performed By: #### L 501.9985, L500.4050, L100.0100, L502.0250, L500.4100 ####[facility] [address] [place], [address] Microalb:Creat Ratio,Random URon 03-01-2024 Creatinine [Mass/Vol] 73.80 mg/dL Normal NO RANGE EST. [facility] Comment on above: Performed By: #### L 501.9985, L500.4050, L100.0100, L502.0250, L500.4100 ####[facility] [address] [place], [address] MALB:CRE 11.3 mg/g CRE Normal <30 mg/g CRE [facility] Comment on above: Performed By: #### L 501.9985, L500.4050, L100.0100, L502.0250, L500.4100 ####[facility] [address] [place], [address] MICROALBUMIN,UR 8.3 mg/L Normal NO RANGE EST. [facility] Comment on above: Performed By: #### L 501.9985, L500.4050, L100.0100, L502.0250, L500.4100 ####[facility] [address] [place], [address] Urine Cultureon 02-29-2024 URC Presumptive E. coli [place] Count >100,000 Streptococcus agalactiae (B) [place] Count 25,000-50,000 Presumptive E. coli: REACTION Ampicillin Islt LEONIDES 4 S Ampicillin+Sulbac Islt LEONIDES <=2 S ceFAZolin Islt LEONIDES <=4 S Cefepime Islt LEONIDES <=0.12 S cefTRIAXone Islt LEONIDES <=0.25 S Ciprofloxacin Islt LEONIDES <=0.25 S Ertapenem Islt LEONIDES <=0.12 S B-Lactamase Extended Susc Islt NEG Gentamicin Islt LEONIDES <=1 S Imipenem Islt LEONIDES <=0.25 S levoFLOXacin Islt LEONIDES <=0.12 S Nitrofurantoin Islt LEONIDES <=16 S Pip+Tazo Islt LEONIDES <=4 S Tobramycin Islt LEONIDES <=1 S TMP SMX Islt LEONIDES <=20 S Streptococcus agalactiae (B): REACTION Ampicillin Islt LEONIDES <=0.25 S Penicillin G Islt LEONIDES <=0.06 S cefTRIAXone Islt LEONIDES <=0.12 S Clindamycin Islt LEONIDES >=1 R Clindamycin.induced Susc Islt NEG Linezolid Islt LEONIDES <=2 S Vancomycin Islt LEONIDES 0.[address] [facility] Comment on above: Performed By: #### M 100.2200 #### [facility] [address] [place], [address] Absolute lymphocyte countOrd ered By: Dr. Hurtado on 12-01-2022 Lymphocytes Auto (Unsp spec) [#/Vol] 2.36 10*3/uL 0.83-4.51 [facility] Basophil percentageOrdered B y: Dr. Hurtado on 12-01-2022 Basophils/100 WBC (Bld) 0.5 % 0-1 [facility] Bilirubin [Mass/Vol] 0.50 mg/dL 0.20-1.00 [facility] Comment on above: For patients on eltr ombopag therapy, use of Dimension [place] TBIL is not recommended. Chloride [Moles/Vol] 107 mmol/L 98-107 [facility] Cholesterol [Mass/Vol] 247 mg/dL <200 [facility] Comment on above: <200 mg/dL Desirable 200-240 mg/dL Borderline >240 mg/dL High Risk Eosinophils/100 WBC (Bld) 1.6 % 0-5 [facility] Glucose [Mass/Vol] 91 mg/dL 74-106 [facility] Neutrophils (Bld) [#/Vol] 3.2 10*3/uL 2.0-7.7 [facility] Neutrophils/100 WBC (Bld) 51.9 % 47-70 [facility] Potassium [Moles/Vol] 4.5 mmol/L 3.5-5.1 [facility] Protein [Mass/Vol] 7.1 g/dL 6.4-8.2 [facility] Sodium [Moles/Vol] 136 mmol/L 136-145 [facility] Triglyceride [Mass/Vol] 171 mg/dL <199 [facility] Comment on above: The drugs N-Acetylcy steine and Metamizole may falsely depress this assay.Serum Triglycerides Reference Interval Normal <150 mg/dL Borderline high 150 - 199 mg/dL High 200 - 499 mg/dL Very High > or = 500 mg/dL WBC (Bld) [#/Vol] 6.2 10*3/uL 4.4-11.0 [facility] Blood erythrocytes count (nu mber/volume)Ordered By: Dr. Hurtado on 12-01-2022 RBC (Bld) [#/Vol] 5.07 10*6/uL 4.2-5.4 [facility] Blood hemoglobin measurement (mass/volume)Ordered By: Dr. Hurtado on 12-01-2022 Hemoglobin (Bld) [Mass/Vol] 15.3 g/dL 12.0-15.0 [facility] Blood lymphocytes/100 leukoc ytesOrdered By: Dr. Hurtado on 12-01-2022 Lymphocytes/100 WBC (Bld) 38.4 % 19-41 [facility] Blood monocytes/100 leukocyt esOrdered By: Dr. Hurtado on 12-01-2022 Monocytes/100 WBC (Bld) 7.3 % 0-10 [facility] Blood platelet mean volumeOr dered By: Dr. Hurtado on 12-01-2022 Platelet mean volume (Bld) [Entitic vol] 9.9 fL 6.2-12.0 [facility] Determination of erythrocyte mean corpuscular volume (MCV)Ordered By: Dr. Hurtado on 12-01-2022 MCV (RBC) [Entitic vol] 94.1 fL 81-99 [facility] Hematocrit Auto (Bld) [Volum e fraction]Ordered By: Dr. Hurtado on 12-01-2022 Hematocrit (Bld) [Volume fraction] 47.7 % 37-47 [facility] - Chemistry and C hemistry - challengeOrdered By: Dr. Hurtado on 12-01-2022 ALP [Catalytic activity/Vol] 47 U/L 45-117 [facility] ALT [Catalytic activity/Vol] 23 U/L 13-56 [facility] CO2 [Moles/Vol] 27.0 mmol/L 21.0-32.0 [facility] Globulin (S) [Mass/Vol] 3.5 g/dL 2.2-4.2 [facility] Urea nitrogen/Creatinine [Mass ratio] 17.9 mg/mg 10-20 [facility] - Hematology and Cell countsOrdered By: Dr. Hurtado on 12-01-2022 Erythrocyte distribution width (RBC) [Entitic vol] 46.7 fL 35.1-43.9 [facility] Erythrocyte distribution width (RBC) [Ratio] 13.6 % 11.6-14.6 [facility] Immature granulocytes/100 WBC (Bld) 0.300 % 0.0-0.9 [facility] Comment on above: IG% - Immature Granu locytes (promyelocytes, myelocytes and metamyelocytes) > 1% indicates that a LEFT SHIFT is Present. MCH (RBC) [Entitic mass] 30.2 pg 27.0-32.0 [facility] Nucleated RBC/100 WBC (Bld) [Ratio] 0 % 0-5 [facility] MCHC Auto (RBC) [Mass/Vol]Or dered By: Dr. Hurtado on 12-01-2022 MCHC (RBC) [Mass/Vol] 32.1 g/dL 32-36 [facility] No Panel InformationOrdered By: Dr. Hurtado on 12-01-2022 Estimated GFR (MDRD) Amer 90 mL/min >60 [facility] Comment on above: GFR Calc Estimated GFR (MDRD) Non-Af Amer 74 mL/min >60 [facility] Comment on above: Non- GFR Calc Urine Microalbumin/Creatinine Ratio 14.5 mg/g CRE <30 [facility] Platelets bldOrdered By: Dr. Hurtado on 12-01-2022 Platelets (Bld) [#/Vol] 273 10*3/uL 150-450 [facility] Serum or plasma albumin almas urement (mass/volume)Ordered By: Dr. Hurtado on 12-01-2022 Albumin [Mass/Vol] 3.6 g/dL 3.2-5.0 [facility] Serum or plasma albumin/glob ulin mass ratioOrdered By: Dr. Hurtado on 12-01-2022 Albumin/Globulin [Mass ratio] 1.0 {ratio} 0.9-2.4 [facility] Serum or plasma calcium almas urement (mass/volume)Ordered By: Dr. Hurtado on 12-01-2022 Calcium [Mass/Vol] 9.4 mg/dL 8.5-10.1 [facility] Serum or plasma cholesterol in HDL measurement (mass/volume)Ordered By: Dr. Hurtado on 12-01-2022 Cholesterol in HDL [Mass/Vol] 50 mg/dL >40 [facility] Comment on above: The drugs N-Acetylcy steine and Metamizole may falsely depress this assay. Reference Range HDL <40 mg/dL Low HDL Cholesterol HDL >or= 60 mg/dL High HDL Cholesterol Serum or plasma cholesterol in VLDL measurement (mass/volume)Ordered By: Dr. Hurtado on 12-01-2022 Cholesterol in VLDL [Mass/Vol] 34 mg/dL 5-40 [facility] Serum or plasma creatinine m easurement (mass/volume)Ordered By: Dr. Hurtado on 12-01-2022 Creatinine [Mass/Vol] 0.84 mg/dL 0.55-1.02 [facility] Comment on above: The validity of the calculated GFR & GFRAA in patients over 70 years has not been determined. Clinical correlation is essential. Serum or plasma low density lipoprotein (LDL) cholesterol measurement (mass/volume)Ordered By: Dr. Hurtado on 12-01-2022 Cholesterol in LDL [Mass/Vol] 163 mg/dL 0-130 [facility] Serum or plasma urea nitroge n measurement (mass/volume)Ordered By: Dr. Hurtado on 12-01-2022 Urea nitrogen [Mass/Vol] 15 mg/dL 7-18 [facility] Thin prep Papanicolaou smear with manual screeningOrdered By: Dr. Hurtado on 12-01-2022 Thin prep Papanicolaou smear with manual screening 14 U/L 15-37 [facility] Thin prep Papanicolaou smear with manual screening 2 5-15 [facility] Thin prep Papanicolaou smear with manual screening 10.6 mg/L NO RANGE EST. [facility] Urine creatinine measurement (mass/volume)Ordered By: Dr. Hurtado on 12-01-2022 Creatinine (U) [Mass/Vol] 73.30 mg/dL NO RANGE EST. [facility] Whole blood hemoglobin A1c/t otal hemoglobin ratio (mass fraction)Ordered By: Dr. Hurtado on 12-01-2022 HbA1c (Bld) [Mass fraction] 5.4 % 3.8-5.6 [facility] Comment on above: Normal < 5.7 % Predi abetic 5.7 - 6.4 % Diabetic >or= 6.5 % Please note range changes. Culture, urine Bacteria identified Cx Nom (U) Mixed Gram Pos & Gram Neg Org [facility] Work Phone: Vital Signs Date Time Vital Sign Value Performing Clinician Kraig lakhani 09-15-2024 14:36-0500 Body temperature 97.2 [degF] Dr. Marion Hurtado DO Work Phone: [facility] 09-15-2024 14:36-0500 Diastolic blood pressure 77 mm[Hg] Dr. Marion Hurtado DO Work Phone: [facility] 09-15-2024 14:36-0500 Heart rate 73 /min Dr. Marion Hurtado DO Work Phone: [facility] 09-15-2024 14:36-0500 Respiratory rate 15 /min Dr. Marion Hurtado DO Work Phone: [facility] 09-15-2024 14:36-0500 SaO2% (BldA) [Mass fraction] 98 % Dr. Marion Hurtado DO Work Phone: [facility] 09-15-2024 14:36-0500 Systolic blood pressure 124 mm[Hg] Dr. Marion Hurtado DO Work Phone: [facility] 09-15-2024 11:08-0500 Body height 170.[address] Marion Hurtado DO Work Phone: [facility] 09-15-2024 11:08-0500 Body mass index (BMI) [Ratio] 32.8 kg/m2 Dr. Marion Hurtado DO Work Phone: [facility] 09-15-2024 11:08-0500 Body weight 94.[address] Marion Hurtado DO Work Phone: [facility] Encounters Encounter Date Encounter Type Care Provider Facility Start: 11-06-2024 End: 11-06-[address] Marion Hurtado DO Work Phone: [facility] Work Phone: Start: 11-06-2024 End: 11-06-[address] Marion Hurtado DO -Laboratory, [place] Work Phone: Start: 11-06-2024 End: 11-06-2024 ambulatory Marion Malchristina Facility:[facility] Start: 10-21-2024 End: 10-21-[address] Marion Hurtado DO Work Phone: [facility] Work Phone: Start: 10-21-2024 End: 10-21-[address] Marion Hurtado DO -Radiology, [place] Work Phone: Start: 10-21-2024 End: 10-21-2024 [facility] Start: 10-06-2024 End: 10-06-[address] Marion Hurtado DO -Laboratory, [facility] Start: 10-06-2024 End: 10-06-2024 ambulatory Marion Malys Facility:[facility] Start: 09-15-2024 End: 09-15-2024 Emergency department patient visit Dr. Zeb Chin MD -Emergency Department Work Phone: Start: 06-11-2024 End: 06-11-2024 [facility] Start: 04-08-2024 End: 04-08-2024 ambulatory Marion Malys Facility:[facility] Start: 03-01-2024 End: 03-01-2024 [facility] Start: 02-26-2024 End: 02-26-2024 ambulatory Marion Hurtado Facility:[facility] Start: 12-01-2022 End: 12-01-[address] [facility] Work Phone: Start: 12-01-2022 End: 12-01-[address] [facility] Start: 08-18-2022 End: 08-18-[address] [facility]-Cat Scan, [facility] Start: 07-31-2022 End: 07-31-[address] [facility] Work Phone: Start: 07-31-2022 End: 07-31-[address] [facility], Darlene Damiándevorah [facility] Procedures Date Procedure Procedure Detail Performing Clinician Start: 11-06-2024 X-ray of chest, PA a nd lateral views Dr. Marion Hurtado DO Work Phone: Start: 10-21-2024 X-ray of paranasal sinuses, three or more views Dr. Marion Hurtado DO Work Phone: Start: 09-15-2024 SARS-CoV-2, Influenz a & RSV (PCR) Dr. Marion Hurtado DO Work Phone: Start: 09-15-2024 X-ray of chest, PA a nd lateral views Dr. Marion Hurtado DO Work Phone: Start: 08-18-2022 US scan of thyroid Urine culture Plan of Treatment Date Care Activity Detail Author Start: 09-15-2024 [facility] Patient Education ED Dehydration (Adult) ED Gastroenteritis, Viral (Adult) [facility] Work Phone: Patient referral [facility] Work Phone: Immunizations Immunization Date Immunization Notes Care Provider Fa cility 11-16-2020 Covid (Pfizer) [facility] 10-26-2020 Covid (Pfizer) [facility] Payers Date Payer Category Payer Self-pay [id number] 2014 Unknown [id number] Unknown [id number] Unknown [id number] 2.16.8 [id number] Unknown [id number] 2.16.8 [id number] Unknown [id number] 2.16.8 [id number] Unknown [id number] 2.16.8 [id number] Unknown [id number] 2.16.8 [id number] Unknown [id number] 2.16.8 [id number] Unknown [id number] 2.16.8 [id number] Unknown [id number] 2.16.8 [id number] Social History Date Type Detail Facility Start: 06-23-2021 End: 06-23-2021 Tobacco smoking status VAIS Unknown if ever smoked [facility] Start: 1965 Sex Assigned At Female [facility] Start: 09-15-2024 Tobacco smoking stat us VAIS Ex-smoker (finding) [facility] Start: 10-31-2024 End: 11-11-2024 Sex Female (finding) [facility] Mental Status Date Assessment Result Facility 09-15-2024 Cognitive function Level Of Cons ciousness Awake;Alert;Appropriate;Follow s Commands [facility] Work Phone: Radiology Diagnostic study note 11-06-2024 Note Date & Type Note Facility 11-06-2024 Radiology Diagnostic study note [facility] Imaging Services [address] [place], [place] [address] Chest PA and Lateral MR#: [id number] Acct: [id number] Name: MARION INFANTE Rep #: [id number] : 1965 F 59 From: Robbi Barrera MD PCP: Dr. Marion Hurtado DO Status: REG CLI Study:Chest PA and Lateral Date of Exam: 11/06/24 Exam# [id number] Ordering Dr: Steffanie Hurtado sa, DO PROCEDURE: CHEST PA AND LATERAL 11/06/2024 REASON FOR EXAM: COUGH. TECHNIQUE: As above. COMPARISON: September 15, 2024. FINDINGS: Lungs remain clear. Pulmonary vasculature is not engorged. Cardiomediastinal silhouette is normal in size and contour. Mild atherosclerotic calcification seen in the great vessels. Costophrenic angles are free of fluid. Some degenerative change is incidentally noted in the upper lumbar spine. RAD/Chest PA and Lateral IMPRESSION: No evidence of acute cardiopulmonary disease. Reading Location: [place] [address] CC: Dr. Marion Hurtado DO ~ Director Of Pupil Personnel Program: Signed [facility] Radiology Diagnostic study note 10-21-2024 Note Date & Type Note Facility 10-21-2024 Radiology Diagnostic study note [facility] Imaging Services [address] [place] [id number] Sinuses min 3 Views MR#: [id number] Acct: [id number] Name: MARION INFANTE Rep #: [id number] : 1965 F 58 From: Raghavendra Jones DO PCP: Dr. Marion Hurtado DO Status: REG CLI Study:Sinuses min 3 Views Date of Exam: 10/21/24 Exam# [id number] Ordering Dr: Steffanie Hurtado sa, DO PROCEDURE: Paranasal sinus radiographs REASON FOR EXAM: Pain, sinusitis, vertigo TECHNIQUE: 3 view(s) of the paranasal sinuses COMPARISON: None. FINDINGS: See impression RAD/Sinuses min 3 Views IMPRESSION: Paranasal sinuses are well-aerated. No discrete fluid levels, gross cortical erosions or osseous thickening. Mastoid air cells are relatively pneumatized. Multiple subtle punctate lucencies throughout the skull which are nonspecific but can be seen width hyperparathyroidism. Please correlate. Reading Location: [facility] CC: Dr. Marion Hurtado DO ~ Director Of Pupil Personnel Program: Signed [facility] Evaluation note Note Date & Type Note Facility Evaluation note No assessment information availa ble [facility] Work Phone: Reason for referral (narrative) Note Date & Type Note Facility Reason for referral (narrative) No reason for referral information available [facility] Work Phone: Family History No Family History Records Found Relationship Condition Age at Onset Recorded Date/T sarahy mother Hypertension Unknown Coronary artery disease 60 father Hypertension Unknown sister Atrial fibrillation Unknown Chief Complaint and Reason for Visit Chief Complaint DIFFICULTY SWALLOWIN G Chief Complaint Admit Date GENERAL ILLNESS September 15, 2024 1 1:07am SINUSITIS October 21, 2024 3:2 1pm Chief Complaint Admit Date GENERAL ILLNESS September 15, 2024 1 1:07am SINUSITIS October 21, 2024 3:2 1pm LABS AND XRAY- COUGH November 06, 2024 9: 50am Advance Directives No Advanced Directives Records Found Advance Directive Response Recorded Date/ Time Living Will No September 15 12:39pm Do you have a Healthcare Power of [employer]? No September 15, 2024 12:39pm Summary Purpose Additional Source Comments Goals (unrecognized section and content) Goals may be documented in a n alternate sectionGoals may be documented in an alternate sectionGoals may be documented in an alternate sectionGoals may be documented in an alternate section Care Teams (unrecognized sec tion and content) Team Status: Active Member Role Status Dates Dr. Marion Hurtado DO Family Provider Active Dr. Marion Hurtado DO Primary Care Provider Active Team Status: Inactive Member Role Status Dates Dr. Marion Hurtado DO Primary Care Provider, Attending Marshall sorenson Active Team Status: Inactive Member Role Status Dates Dr. Marion Hurtado DO Primary Care Provide r, Attending Provider, Referring Provider Active Team Status: Active Member Role Status Dates Dr. Marion Hurtado DO Primary Care Provider Active Team Status: Inactive Member Role Status Dates Dr. Marion Hurtado DO Primary Care Provider Active Start: September 15, 2024 End: September 15, 2024 Dr. Zeb Chin MD Attending Provider Active Sta rt: September 15, 2024 End: September 15, 2024 Dr. Zeb Chin MD Emergency Provider Active Sta rt: September 15, 2024 End: September 15, 2024 Team Status: Inactive Member Role Status Dates Dr. Marion Hurtado DO Primary Care Provider Active Start: October 06, 2024 End: October 06, 2024 Dr. Marion Hurtado DO Attending Provider Active St art: October 06, 2024 End: October 06, 2024 Team Status: Inactive Member Role Status Dates Dr. Marion Hurtado DO Primary Care Provider Active Start: October 21, 2024 End: October 21, 2024 Dr. Marion Hurtado DO Attending Provider Active St art: October 21, 2024 End: October 21, 2024 Dr. Marion Hurtado DO Referring Provider Active St art: October 21, 2024 End: October 21, 2024 Team Status: Inactive Member Role Status Dates Dr. Marion Hurtado DO Primary Care Provider Active Start: November 06, 2024 End: November 06, 2024 Dr. Marion Hurtado DO Attending Provider Active St art: November 06, 2024 End: November 06, 2024 Dr. Marion Hurtado DO Referring Provider Active St art: November 06, 2024 End: November 06, 2024 INFORMATION SOURCE (unrecogn ized section and content) DATE CREATED AUTHOR 11/12/2024 [facility] FOR RECORDS PERTAINING TO PATIENTS WHO ARE OR HAVE BEEN ENROLLED IN A CHEMICAL DEPENDENCY/SUBSTANCEABUSE PROGRAM, SOME INFORMATION MAY BE OMITTED. This clinical summary was aggregated from multiple sources. Caution should be exercised in using it in the provision of clinical care. This summary normalizes information from multiple sources, and as a consequence, information in this document may materially change the coding, format and clinical context of patient data. In addition, data may be omitted in some cases. CLINICAL DECISIONS SHOULD BE BASED ON THE PRIMARY CLINICAL RECORDS. [employer] provides no warranty or guarantee of the accuracy or completeness of information in this document.
--- OUTSIDE RECORDS SUMMARY | 2025-05-06 18:56 | XMS RPT_ITS | CCD ---
Author Organization [facility] Care Team Providers Care Policeman Name Role Phone Genesis LOPEZ, Dr. Schultz Primary Care Provider Giuseppe REAGAN, Dr. Carrington Attending Provider [phone] Giuseppe REAGAN, Dr. Carrington Emergency Provider [phone] Genesis LOPEZ, Dr. Schultz Attending Provider Genesis LOPEZ, Dr. Schultz Referring Provider [phone] Malys, Marion Attending Unavailable Malys, Marion Primary [...] Drug Class(es) Dates Sig (Normalized) Sig (Original) [id number] 200 actuat albuterol 0.09 mg/actuat metered dose [...] D 1,25 DIHY 38.1 pg/mL Normal 24.8-81.5 [facility] Comment on above: Result Comment: Perf ormed at: [facility] [address] [id number] Electrotyper Helper: Gopi Dinh MD, Phone: [phone] Performed By: #### L 3300.0960, L509.1000, L100.0100, L506.1001 ####[facility] [address] [place], [place], [id number] 1,25-dihydroxyvitamin D3 [Ma ss/Vol]Ordered By: Marion Hurtado on 11-06-2024 Vitamin D 1,25-Dihydroxy 38.1 pg/mL 24.8-81.5 [facility] Comment on above: Performed at: [facility] [address] [id number] Director: Gopi Dinh MD, Phone: [phone] Absolute neutrophil countOrd ered By: Marion Hurtado on 11-06-2024 Neutrophils (Bld) [#/Vol] 4.7 10*3/uL 2.0-7.7 [facility] Basophil percentageOrdered B y: Marion Hurtado on 11-06-2024 Basophils/100 WBC (Bld) 0.3 % 0-1 [facility] CBC W/Diff, Automatedon 10-12 Absolute Lymph 2.17 X10 3/uL Normal 0.83-4.51 [facility] Comment on above: Performed By: #### L 3300.0960, L509.1000, L100.0100, L506.1001 ####[facility] [address] [place], [address] Absolute Neut 4.7 X10 3/uL Normal 2.0-7.7 [facility] Comment on above: Performed By: #### L 3300.0960, L509.1000, L100.0100, L506.1001 ####[facility] [address] [place], [address] Basophils/100 WBC (Bld) 0.3 % Normal 0-1 [facility] Comment on above: Performed By: #### L 3300.0960, L509.1000, L100.0100, L506.1001 ####[facility] [address] [place], [address] Eosinophils/100 WBC (Bld) 1.7 % Normal 0-5 [facility] Comment on above: Performed By: #### L 3300.0960, L509.1000, L100.0100, L506.1001 ####[facility] [address] [place], [address] Erythrocyte distribution width (RBC) [Ratio] 13.2 % Normal 11.6-14.6 [facility] Comment on above: Performed By: #### L 3300.0960, L509.1000, L100.0100, L506.1001 ####[facility] [address] [place], [address] Hematocrit (Bld) [Volume fraction] 47.7 % High 37-47 [facility] Comment on above: Performed By: #### L 3300.0960, L509.1000, L100.0100, L506.1001 ####[facility] [address] [place], [address] Hemoglobin (Bld) [Mass/Vol] 15.7 g/dL High 12.0-15.0 [facility] Comment on above: Performed By: #### L 3300.0960, L509.1000, L100.0100, L506.1001 ####[facility] [address] [place], [address] IG% 0.800 Normal 0.0-0.9 [facility] Comment on above: Result Comment: IG% - Immature Granulocytes (promyelocytes, myelocytes and metamyelocytes) > 1% indicates that a LEFT SHIFT is Present. Performed By: #### L 3300.0960, L509.1000, L100.0100, L506.1001 ####[facility] [address] [place], [address] Lymphocytes/100 WBC (Bld) 28.5 % Normal 19-41 [facility] Comment on above: Performed By: #### L 3300.0960, L509.1000, L100.0100, L506.1001 ####[facility] [address] [place], [address] MCH (RBC) [Entitic mass] 30.7 pg Normal 27.0-32.0 [facility] Comment on above: Performed By: #### L 3300.0960, L509.1000, L100.0100, L506.1001 ####[facility] [address] [place], [address] MCHC (RBC) [Mass/Vol] 32.9 g/dL Normal 32-36 [facility] Comment on above: Performed By: #### L 3300.0960, L509.1000, L100.0100, L506.1001 ####[facility] [address] [place], [address] MCV (RBC) [Entitic vol] 93.2 fL Normal 81-99 [facility] Comment on above: Performed By: #### L 3300.0960, L509.1000, L100.0100, L506.1001 ####[facility] [address] [place], [address] Monocytes/100 WBC (Bld) 6.8 % Normal 0-10 [facility] Comment on above: Performed By: #### L 3300.0960, L509.1000, L100.0100, L506.1001 ####[facility] [address] [place], [address] Neutrophils/100 WBC (Bld) 61.9 % Normal 47-70 [facility] Comment on above: Performed By: #### L 3300.0960, L509.1000, L100.0100, L506.1001 ####[facility] [address] [place], [address] Nucleated RBC (Bld) [#/Vol] 0 10*3/uL Normal 0-5 [facility] Comment on above: Performed By: #### L 3300.0960, L509.1000, L100.0100, L506.1001 ####[facility] [address] [place], [address] Platelet mean volume (Bld) [Entitic vol] 10.4 fL Normal 6.2-12.0 [facility] Comment on above: Performed By: #### L 3300.0960, L509.1000, L100.0100, L506.1001 ####[facility] [address] [place], [address] Platelets (Bld) [#/Vol] 267 10*3/uL Normal 150-450 [facility] Comment on above: Performed By: #### L 3300.0960, L509.1000, L100.0100, L506.1001 ####[facility] [address] [place], [address] RBC (Bld) [#/Vol] 5.12 10*6/uL Normal 4.2-5.4 [facility] Comment on above: Performed By: #### L 3300.0960, L509.1000, L100.0100, L506.1001 ####[facility] [address] [place], [address] RDW SD 45.2 fl High 35.1-43.9 [facility] Comment on above: Performed By: #### L 3300.0960, L509.1000, L100.0100, L506.1001 ####[facility] [address] [place], [address] WBC (Bld) [#/Vol] 7.6 10*3/uL Normal 4.4-11.0 [facility] Comment on above: Performed By: #### L 3300.0960, L509.1000, L100.0100, L506.1001 ####[facility] [address] [place], [address] Chest PA and Lateralon 11-06 Chest PA and Lateral [facility] [address] [place] [address] Chest PA and Lateral MR#: [id number] Acct: [id number] Name: MARION INFANTE MARVIN Rep #: [id number] : 1965 F 59 From: Derek Lee PCP: Dr. Marion Hurtado DO Status: REG CLI Study: Chest PA and Lateral Date of Exam: 11/06/24 Exam# [id number] Ordering Dr: Marion Hurtado DO PROCEDURE: CHEST [...] evidence of acute cardiopulmonary disease. Reading Location: [facility] CC: Dr. Marion Hurtado, Animal Care Technician: Signed Normal [facility] Eosinophil percentageOrdered By: Marion Hurtado on 11-06-2024 Eosinophils/100 WBC (Bld) 1.7 % 0-5 [facility] Erythrocyte distribution wid th ratioOrdered By: Marion Hurtado on 11-06-2024 Erythrocyte distribution width (RBC) [Ratio] 13.2 % 11.6-14.6 [facility] Erythrocyte distribution wid th standard deviationOrdered By: Marion Hurtado on 11-06-2024 Erythrocyte distribution width (RBC) [Entitic vol] 45.2 fL High 35.1-43.9 [facility] Hematocrit Auto (Bld) [Volum e fraction]Ordered By: Marion Hurtado on 11-06-2024 Hematocrit (Bld) [Volume fraction] 47.7 % High 37-47 [facility] Hemoglobin measurementOrdere d By: Marion Hurtado on 11-06-2024 Hemoglobin (Bld) [Mass/Vol] 15.7 g/dL High 12.0-15.0 [facility] Immature granulocytes/100 WB C Auto (Bld)Ordered By: Marion Hurtado on 11-06-2024 Immature granulocytes/100 WBC (Bld) 0.800 % 0.0-0.9 [facility] Comment on above: IG% - Immature Granu locytes (promyelocytes, myelocytes and metamyelocytes) > 1% indicates that a LEFT SHIFT is Present. L506.1001on 11-06-2024 Vitamin D 25-OH 70.6 ng/mL Normal 30-100 [facility] Comment on above: Result Comment: Catherine min D Status Deficiency: <20 ng/mL (50nmol/L) Insufficiency: 20-30 ng/mL (50-75 nmol/L) Sufficiency: 30-100 ng/mL (75-250 nmol/L) Toxicity: >100 ng/mL (>250 nmol/L) Performed By: #### L 3300.0960, L509.1000, L100.0100, L506.1001 ####[facility] [address] [place], [address] Lymphocytes Auto (Unsp spec) [#/Vol]Ordered By: Marion Hurtado on 11-06-2024 Lymphocytes (Bld) [#/Vol] 2.17 10*3/uL 0.83-4.51 [facility] Lymphocytes/100 WBC Auto (Un sp spec)Ordered By: Marion Hurtado on 11-06-2024 Lymphocytes/100 WBC (Bld) 28.5 % 19-41 [facility] MCV (mean corpuscular volume ) determinationOrdered By: Marion Hurtado on 11-06-2024 MCV (RBC) [Entitic vol] 93.2 fL 81-99 [facility] Mean corpuscular hemoglobin (MCH) determinationOrdered By: Marion Hurtado on 11-06-2024 MCH (RBC) [Entitic mass] 30.7 pg 27.0-32.0 [facility] Mean corpuscular hemoglobin concentration (MCHC) determinationOrdered By: Marion Hurtado on 11-06-2024 MCHC (RBC) [Mass/Vol] 32.9 g/dL 32-36 [facility] Mean platelet volume determi nationOrdered By: Marion Hurtado on 11-06-2024 Platelet mean volume (Bld) [Entitic vol] 10.4 fL 6.2-12.0 [facility] Monocyte percentageOrdered B y: Marion Hurtado on 11-06-2024 Monocytes/100 WBC (Bld) 6.8 % 0-10 [facility] Neutrophil percentageOrdered By: Marion Hurtado on 11-06-2024 Neutrophils/100 WBC (Bld) 61.9 % 47-70 [facility] Nucleated red blood cell per centageOrdered By: Marion Hurtado on 11-06-2024 Nucleated RBC/100 WBC (Bld) [Ratio] 0 % 0-5 [facility] PTH intactOrdered By: Marion acosta on 11-06-2024 Parathyroid Hormone (Intact) 39 pg/mL [facility] PTHINon 11-06-2024 PTH 39 pg/mL Normal [facility] Comment on above: Performed By: #### L 3300.0960, L509.1000, L100.0100, L506.1001 ####[facility] [address] [place], [address] Platelet countOrdered By: Steffanie Hurtado on 11-06-2024 Platelets (Bld) [#/Vol] 267 10*3/uL 150-450 [facility] RBC Auto (Bld) [#/Vol]Ordere d By: Marion Hurtado on 11-06-2024 RBC (Bld) [#/Vol] 5.12 10*6/uL 4.2-5.4 [facility] Vitamin D, 25-hydroxyOrdered By: Marion Hurtado on 11-06-2024 Vitamin D 25-Hydroxy 70.6 ng/mL 30-100 [facility] Comment on above: Vitamin D StatusDefi ciency: <20 ng/mL (50nmol/L)Insufficiency: 20-30 ng/mL (50-75 nmol/L)Sufficiency: 30-100 ng/mL (75-250 nmol/L)Toxicity: >100 ng/mL (>250 nmol/L) White blood cell (WBC) count Ordered By: Marion Hurtado on 11-06-2024 WBC (Bld) [#/Vol] 7.6 10*3/uL 4.4-11.0 [facility] Sinuses min 3 Viewson 2024 Sinuses min 3 Views [facility] [address] [address] Sinuses min 3 Views MR#: [id number] Acct: [id number] Name: MAROIN INFANTE MARVIN Rep #: [id number] : 1965 F 58 From: Darshan Cantrell PCP: Dr. Marion Hurtado DO Status: REG CLI Study: Sinuses min 3 Views Date of Exam: 10/21/24 Exam# [id number] Ordering Dr: Marion Hurtado DO PROCEDURE: Paranasal [...] Location: [facility] CC: Dr. Marion Hurtado, DO Animal Care Technician: Signed Normal [facility] Absolute neutrophil countOrd ered By: Marion Hurtado on 10-06-2024 Neutrophils (Bld) [#/Vol] 4.8 10*3/uL 2.0-7.7 [facility] Albumin to globulin ratioOrd ered By: Marion Hurtado on 10-06-2024 Albumin/Globulin [Mass ratio] 1.1 {ratio} 0.9-2.4 [facility] Basophil percentageOrdered B y: Marion Hurtado on 10-06-2024 Basophils/100 WBC (Bld) 0.7 % 0-1 [facility] Bilirubin, totalOrdered By: Marion Hurtado on 10-06-2024 Bilirubin [Mass/Vol] 0.60 mg/dL 0.20-1.00 [facility] Comment on above: For patients on eltr ombopag therapy, use of Dimension [place] TBIL is not recommended. Blood urea nitrogen (BUN)/cr eatinine ratioOrdered By: Marion Hurtado on 10-06-2024 Urea nitrogen/Creatinine [Mass ratio] 20.5 mg/mg High 10-20 [facility] C-reactive protein measureme nt by high sensitivity methodOrdered By: Marion Hurtado on 10-06-2024 C-Reactive Protein Extended Range 5.84 mg/L High 0.0-3.0 [facility] Comment on above: C-Reactive Protein ( CRP) provides useful information for thediagnosis, therapy and monitoring of inflammatory processesand associated diseases. For the evaluation of Relative Riskfor Cardiovascular Disease, a High Sensitivity CRP (HSCRP)should be ordered. CBC W/Diff, Automatedon 09-14 Absolute Lymph 2.06 X10 3/uL Normal 0.83-4.51 [facility] Comment on above: Performed By: #### L 501.9520, L500.4050, L101.9900, L100.0100, L501.6710 #### [facility] [address] [place], [address] Absolute Neut 4.8 X10 3/uL Normal 2.0-7.7 [facility] Comment on above: Performed By: #### L 501.9520, L500.4050, L101.9900, L100.0100, L501.6710 #### [facility] [address] [place], [address] Basophils/100 WBC (Bld) 0.7 % Normal 0-1 [facility] Comment on above: Performed By: #### L 501.9520, L500.4050, L101.9900, L100.0100, L501.6710 #### [facility] [address] [place], [address] Eosinophils/100 WBC (Bld) 0.5 % Normal 0-5 [facility] Comment on above: Performed By: #### L 501.9520, L500.4050, L101.9900, L100.0100, L501.6710 #### [facility] [address] [place], [address] Erythrocyte distribution width (RBC) [Ratio] 12.9 % Normal 11.6-14.6 [facility] Comment on above: Performed By: #### L 501.9520, L500.4050, L101.9900, L100.0100, L501.6710 #### [facility] [address] [place], [address] Hematocrit (Bld) [Volume fraction] 50.0 % High 37-47 [facility] Comment on above: Performed By: #### L 501.9520, L500.4050, L101.9900, L100.0100, L501.6710 #### [facility] [address] [place], [address] Hemoglobin (Bld) [Mass/Vol] 16.7 g/dL High 12.0-15.0 [facility] Comment on above: Performed By: #### L 501.9520, L500.4050, L101.9900, L100.0100, L501.6710 #### [facility] [address] [place], [address] IG% 0.300 Normal 0.0-0.9 [facility] Comment on above: Result Comment: IG% - Immature Granulocytes (promyelocytes, myelocytes and metamyelocytes) > 1% indicates that a LEFT SHIFT is Present. Performed By: #### L 501.9520, L500.4050, L101.9900, L100.0100, L501.6710 #### [facility] [address] [place], [address] Lymphocytes/100 WBC (Bld) 27.3 % Normal 19-41 [facility] Comment on above: Performed By: #### L 501.9520, L500.4050, L101.9900, L100.0100, L501.6710 #### [facility] [address] [place], [address] MCH (RBC) [Entitic mass] 30.6 pg Normal 27.0-32.0 [facility] Comment on above: Performed By: #### L 501.9520, L500.4050, L101.9900, L100.0100, L501.6710 #### [facility] [address] [place], [address] MCHC (RBC) [Mass/Vol] 33.4 g/dL Normal 32-36 [facility] Comment on above: Performed By: #### L 501.9520, L500.4050, L101.9900, L100.0100, L501.6710 #### [facility] [address] [place], [address] MCV (RBC) [Entitic vol] 91.7 fL Normal 81-99 [facility] Comment on above: Performed By: #### L 501.9520, L500.4050, L101.9900, L100.0100, L501.6710 #### [facility] [address] [place], [address] Monocytes/100 WBC (Bld) 7.3 % Normal 0-10 [facility] Comment on above: Performed By: #### L 501.9520, L500.4050, L101.9900, L100.0100, L501.6710 #### [facility] [address] [place], [address] Neutrophils/100 WBC (Bld) 63.9 % Normal 47-70 [facility] Comment on above: Performed By: #### L 501.9520, L500.4050, L101.9900, L100.0100, L501.6710 #### [facility] [address] [place], [address] Nucleated RBC (Bld) [#/Vol] 0 10*3/uL Normal 0-5 [facility] Comment on above: Performed By: #### L 501.9520, L500.4050, L101.9900, L100.0100, L501.6710 #### [facility] [address] [place], [address] Platelet mean volume (Bld) [Entitic vol] 10.1 fL Normal 6.2-12.0 [facility] Comment on above: Performed By: #### L 501.9520, L500.4050, L101.9900, L100.0100, L501.6710 #### [facility] [address] [place], [address] Platelets (Bld) [#/Vol] 306 10*3/uL Normal 150-450 [facility] Comment on above: Performed By: #### L 501.9520, L500.4050, L101.9900, L100.0100, L501.6710 #### [facility] [address] [place], [address] RBC (Bld) [#/Vol] 5.45 10*6/uL High 4.2-5.4 [facility] Comment on above: Performed By: #### L 501.9520, L500.4050, L101.9900, L100.0100, L501.6710 #### [facility] [address] [place], [address] RDW SD 42.6 fl Normal 35.1-43.9 [facility] Comment on above: Performed By: #### L 501.9520, L500.4050, L101.9900, L100.0100, L501.6710 #### [facility] [address] [place], [address] WBC (Bld) [#/Vol] 7.5 10*3/uL Normal 4.4-11.0 [facility] Comment on above: Performed By: #### L 501.9520, L500.4050, L101.9900, L100.0100, L501.6710 #### [facility] [address] [place], [address] CRPon 10-06-2024 C-REACTIVE PROT 5.84 mg/L High 0.0-3.0 [facility] Comment on above: Result Comment: C-Re active Protein (CRP) provides useful information for the diagnosis, therapy and monitoring of inflammatory processes and associated diseases. For the evaluation of Relative Risk for Cardiovascular Disease, a High Sensitivity CRP (HSCRP) should be ordered. Performed By: #### L 501.9520, L500.4050, L101.9900, L100.0100, L501.6710 #### [facility] [address] [place], [address] Carbon dioxide measurementOr dered By: Mariongreg Hurtado on 10-06-2024 CO2 [Moles/Vol] 26.0 mmol/L 21.0-32.0 [facility] Chloride measurementOrdered By: Mariongreg Hurtado on 10-06-2024 Chloride [Moles/Vol] 101 mmol/L 98-107 [facility] Comprehensive Metabolic Prof ilon 10-06-2024 Albumin [Mass/Vol] 4.2 g/dL Normal 3.2-5.0 [facility] Comment on above: Performed By: #### L 501.9520, L500.4050, L101.9900, L100.0100, L501.6710 #### [facility] [address] [place], [address] Albumin/Globulin [Mass ratio] 1.1 {ratio} Normal 0.9-2.4 [facility] Comment on above: Performed By: #### L 501.9520, L500.4050, L101.9900, L100.0100, L501.6710 #### [facility] [address] [place], [address] ALK P 63 U/L Normal 45-117 [facility] Comment on above: Performed By: #### L 501.9520, L500.4050, L101.9900, L100.0100, L501.6710 #### [facility] [address] [place], [address] ALT [Catalytic activity/Vol] 26 U/L Normal 13-56 [facility] Comment on above: Performed By: #### L 501.9520, L500.4050, L101.9900, L100.0100, L501.6710 #### [facility] [address] [place], [address] AST [Catalytic activity/Vol] 14 U/L Low 15-37 [facility] Comment on above: Performed By: #### L 501.9520, L500.4050, L101.9900, L100.0100, L501.6710 #### [facility] [address] [place], [address] Bilirubin [Mass/Vol] 0.60 mg/dL Normal 0.20-1.00 [facility] Comment on above: Result Comment: For patients on eltrombopag therapy, use of Dimension [place] TBIL is not recommended. Performed By: #### L 501.9520, L500.4050, L101.9900, L100.0100, L501.6710 #### [facility] [address] [place], [address] BUN/CRE 20.5 RATIO High 10-20 [facility] Comment on above: Performed By: #### L 501.9520, L500.4050, L101.9900, L100.0100, L501.6710 #### [facility] [address] [place], [address] CA,Total 9.9 mg/dL Normal 8.5-10.1 [facility] Comment on above: Performed By: #### L 501.9520, L500.4050, L101.9900, L100.0100, L501.6710 #### [facility] [address] [place], [address] Chloride [Moles/Vol] 101 mmol/L Normal 98-107 [facility] Comment on above: Performed By: #### L 501.9520, L500.4050, L101.9900, L100.0100, L501.6710 #### [facility] [address] [place], [address] CO2 [Moles/Vol] 26.0 mmol/L Normal 21.0-32.0 [facility] Comment on above: Performed By: #### L 501.9520, L500.4050, L101.9900, L100.0100, L501.6710 #### [facility] [address] [place], [address] Creatinine [Mass/Vol] 0.98 mg/dL Normal 0.55-1.02 [facility] Comment on above: Result Comment: The validity of the calculated GFR GFRAA in patients over 70 years has not been determined. Clinical correlation is essential. Performed By: #### L 501.9520, L500.4050, L101.9900, L100.0100, L501.6710 #### [facility] [address] [place], [address] EST GFR - AA 75 mL/min Normal >60 [facility] Comment on above: Result Comment: Afri can Maltese GFR Calc Performed By: #### L 501.9520, L500.4050, L101.9900, L100.0100, L501.6710 #### [facility] [address] [place], [address] GAP 7 Normal 5-15 [facility] Comment on above: Performed By: #### L 501.9520, L500.4050, L101.9900, L100.0100, L501.6710 #### [facility] [address] [place], [address] GFR/1.73 sq M.predicted among non-blacks MDRD (S/P/Bld) [Vol rate/Area] 62 mL/min/{1.73_m2} Normal >60 [facility] Comment on above: Result Comment: Non- GFR Calc Performed By: #### L 501.9520, L500.4050, L101.9900, L100.0100, L501.6710 #### [facility] [address] [place], [address] Globulin (S) [Mass/Vol] 3.9 g/dL Normal 2.2-4.2 [facility] Comment on above: Performed By: #### L 501.9520, L500.4050, L101.9900, L100.0100, L501.6710 #### [facility] [address] [place], [address] Glucose [Mass/Vol] 88 mg/dL Normal 74-106 [facility] Comment on above: Performed By: #### L 501.9520, L500.4050, L101.9900, L100.0100, L501.6710 #### [facility] [address] [place], [address] Potassium [Moles/Vol] 5.1 mmol/L Normal 3.5-5.1 [facility] Comment on above: Performed By: #### L 501.9520, L500.4050, L101.9900, L100.0100, L501.6710 #### [facility] [address] [place], [address] Sodium [Moles/Vol] 134 mmol/L Low 136-145 [facility] Comment on above: Performed By: #### L 501.9520, L500.4050, L101.9900, L100.0100, L501.6710 #### [facility] [address] [place], [address] T PROT 8.1 g/dL Normal 6.4-8.2 [facility] Comment on above: Performed By: #### L 501.9520, L500.4050, L101.9900, L100.0100, L501.6710 #### [facility] [address] [place], [address] Urea nitrogen [Mass/Vol] 20 mg/dL High 7-18 [facility] Comment on above: Performed By: #### L 501.9520, L500.4050, L101.9900, L100.0100, L501.6710 #### [facility] [address] [place], [place], [address] Eosinophil percentageOrdered By: Marion Hurtado on 10-06-2024 Eosinophils/100 WBC (Bld) 0.5 % 0-5 [facility] Erythrocyte Sed Rateon 10-06 SED RATE 22 mm/hr Normal 0-30 [facility] Comment on above: Performed By: #### L 501.9520, L500.4050, L101.9900, L100.0100, L501.6710 #### [facility] [address] [facility] [address] [place], [place], [id number] Erythrocyte distribution wid th ratioOrdered By: Marion Hurtado on 10-06-2024 Erythrocyte distribution width (RBC) [Ratio] 12.9 % 11.6-14.6 [facility] Erythrocyte distribution wid th standard deviationOrdered By: Marion Hurtado on 10-06-2024 Erythrocyte distribution width (RBC) [Entitic vol] 42.6 fL 35.1-43.9 [facility] Erythrocyte sedimentation ra teOrdered By: Marion Hurtado on 10-06-2024 ESR (Bld) [Velocity] 22 mm/h 0-30 [facility] Estimated glomerular filtrat ion rate (GFR) AmericanOrdered By: Marion Hurtado on 10-06-2024 Estimated GFR (MDRD) Amer 75 mL/min >60 [facility] Comment on above: GFR Calc Glomerular filtration rate ( GFR) estimationOrdered By: Marion Hurtado on 10-06-2024 Estimated GFR (MDRD) Non-Af Amer 62 mL/min >60 [facility] Comment on above: Non- GFR Calc Glucose measurementOrdered B y: Marion Hurtado on 10-06-2024 Glucose [Mass/Vol] 88 mg/dL 74-106 [facility] Hematocrit Auto (Bld) [Volum e fraction]Ordered By: Marion Hurtado on 10-06-2024 Hematocrit (Bld) [Volume fraction] 50.0 % High 37-47 [facility] Hemoglobin measurementOrdere d By: Marion Hurtado on 10-06-2024 Hemoglobin (Bld) [Mass/Vol] 16.7 g/dL High 12.0-15.0 [facility] Immature granulocytes/100 WB C Auto (Bld)Ordered By: Marion Hurtado on 10-06-2024 Immature granulocytes/100 WBC (Bld) 0.300 % 0.0-0.9 [facility] Comment on above: IG% - Immature Granu locytes (promyelocytes, myelocytes and metamyelocytes) > 1% indicates that a LEFT SHIFT is Present. Laboratory - Chemistry and C hemistry - challengeOrdered By: Marion Hurtado on 10-06-2024 AST [Catalytic activity/Vol] 14 U/L Low 15-37 [facility] Lymphocytes Auto (Unsp spec) [#/Vol]Ordered By: Marion Hurtado on 10-06-2024 Lymphocytes (Bld) [#/Vol] 2.06 10*3/uL 0.83-4.51 [facility] Lymphocytes/100 WBC Auto (Un sp spec)Ordered By: Marion Hurtado on 10-06-2024 Lymphocytes/100 WBC (Bld) 27.3 % 19-41 [facility] MCV (mean corpuscular volume ) determinationOrdered By: Marion Hurtado on 10-06-2024 MCV (RBC) [Entitic vol] 91.7 fL 81-99 [facility] Mean corpuscular hemoglobin (MCH) determinationOrdered By: Marion Hurtado on 10-06-2024 MCH (RBC) [Entitic mass] 30.6 pg 27.0-32.0 [facility] Mean corpuscular hemoglobin concentration (MCHC) determinationOrdered By: Marion Hurtado on 10-06-2024 MCHC (RBC) [Mass/Vol] 33.4 g/dL 32-36 [facility] Mean platelet volume determi nationOrdered By: Marion Hurtado on 10-06-2024 Platelet mean volume (Bld) [Entitic vol] 10.1 fL 6.2-12.0 [facility] Monocyte percentageOrdered B y: Marion Hurtado on 10-06-2024 Monocytes/100 WBC (Bld) 7.3 % 0-10 [facility] Neutrophil percentageOrdered By: Marion Hurtado on 10-06-2024 Neutrophils/100 WBC (Bld) 63.9 % 47-70 [facility] Nucleated red blood cell per centageOrdered By: Marion Hurtado on 10-06-2024 Nucleated RBC/100 WBC (Bld) [Ratio] 0 % 0-5 [facility] Platelet countOrdered By: Steffanie Hurtado on 10-06-2024 Platelets (Bld) [#/Vol] 306 10*3/uL 150-450 [facility] Potassium measurementOrdered By: Marion Hurtado on 10-06-2024 Potassium [Moles/Vol] 5.1 mmol/L 3.5-5.1 [facility] RBC Auto (Bld) [#/Vol]Ordere d By: Marion Hurtado on 10-06-2024 RBC (Bld) [#/Vol] 5.45 10*6/uL High 4.2-5.4 [facility] Serum anion gap measurementO rdered By: Marion Hurtado on 10-06-2024 Anion gap [Moles/Vol] 7 mmol/L 5-15 [facility] Serum globulin measurementOr dered By: Marion Hurtado on 10-06-2024 Globulin (S) [Mass/Vol] 3.9 g/dL 2.2-4.2 [facility] Serum or plasma alanine wolfe otransferase (ALT) measurementOrdered By: Marion Hurtado on 10-06-2024 ALT [Catalytic activity/Vol] 26 U/L 13-56 [facility] Serum or plasma albumin almas urement (mass/volume)Ordered By: Marion Hurtado on 10-06-2024 Albumin [Mass/Vol] 4.2 g/dL 3.2-5.0 [facility] Serum or plasma alkaline smamy sphatase measurementOrdered By: Marion Hurtado on 10-06-2024 ALP [Catalytic activity/Vol] 63 U/L 45-117 [facility] Serum or plasma calcium almas urement (mass/volume)Ordered By: Marion Hurtado on 10-06-2024 Calcium [Mass/Vol] 9.9 mg/dL 8.5-10.1 [facility] Serum or plasma creatinine m easurement (mass/volume)Ordered By: Marion Hurtado on 10-06-2024 Creatinine [Mass/Vol] 0.98 mg/dL 0.55-1.02 [facility] Comment on above: The validity of the calculated GFR & GFRAA in patients over 70 years has not been determined. Clinical correlation is essential. Serum or plasma urea nitroge n measurement (mass/volume)Ordered By: Marion Hurtado on 10-06-2024 Urea nitrogen [Mass/Vol] 20 mg/dL High 7-18 [facility] Sodium levelOrdered By: Marion Hurtado on 10-06-2024 Sodium [Moles/Vol] 134 mmol/L Low 136-145 [facility] TSH QnOrdered By: Marion Hurtado on 10-06-2024 Thyroid Stimulating Hormone (TSH) 0.856 uIU/mL 0.358-3.740 [facility] Thyroid Stim Hormone (TSH)on 10-06-2024 TSH 0.856 uIU/mL Normal 0.358-3.740 [facility] Comment on above: Performed By: #### L 501.9520, L500.4050, L101.9900, L100.0100, L501.6710 ####[facility] [address] [facility] [place], [address] Total proteinOrdered By: Lisa Hurtado on 10-06-2024 Protein [Mass/Vol] 8.1 g/dL 6.4-8.2 [facility] White blood cell (WBC) count Ordered By: Marion Hurtado on 10-06-2024 WBC (Bld) [#/Vol] 7.5 10*3/uL 4.4-11.0 [facility] 12 Lead EKGon 09-15-2024 12 Lead EKG [facility] [address] [place] [address] 12 Lead EKG 09/15/24 1142 MR#: [id number] Acct: [id number] Name: MARION INFANTE MARVIN Rep #: [id number] : 1965 58 From: Hipolito Muñoz MD [...] Abnormal ECG Confirmed by COREY REAGAN, HIPOLITO ([id number]), content editor SILVER DAVIS ([id number]) on 09/16/2024 8:51:24 AM Referred By: Confirmed By: HIPOLITO MUÑOZ MD 09/16/24 0851 Date Hipolito Muñoz MD CC: DEX Benítez; Dr. Marion Hurtado DO; Dr. Zeb Chin MD Signed Normal [facility] Absolute neutrophil countOrd ered By: Kerwin Benítez on 09-15-2024 Neutrophils (Bld) [#/Vol] 5.1 10*3/uL 2.0-7.7 [facility] Albumin to globulin ratioOrd ered By: Kerwin Benítez on 09-15-2024 Albumin/Globulin [Mass ratio] 1.0 {ratio} 0.9-2.4 [facility] Basophil percentageOrdered B y: Kerwin Benítez on 09-15-2024 Basophils/100 WBC (Bld) 0.4 % 0-1 [facility] Bilirubin Test strip Ql (U)O rdered By: Kerwin Benítez on 09-15-2024 Bilirubin Ql (U) Negative Negative [facility] Bilirubin, totalOrdered By: Kerwin Benítez on 09-15-2024 Bilirubin [Mass/Vol] 0.60 mg/dL 0.20-1.00 [facility] Comment on above: For patients on eltr ombopag therapy, use of Dimension [place] TBIL is not recommended. Blood urea nitrogen (BUN)/cr eatinine ratioOrdered By: Kerwin Benítez on 09-15-2024 Urea nitrogen/Creatinine [Mass ratio] 14.9 mg/mg 10-20 [facility] CBC W/Diff, Automatedon 02-0 3-2025 Absolute Lymph 1.17 X10 3/uL Normal 0.83-4.51 [facility] Comment on above: Performed By: #### L 501.2450, L501.4020, L500.4050, L100.0100 ####[facility] [address] [place], [address] Absolute Neut 5.1 X10 3/uL Normal 2.0-7.7 [facility] Comment on above: Performed By: #### L 501.2450, L501.4020, L500.4050, L100.0100 ####[facility] [address] [place], [address] Basophils/100 WBC (Bld) 0.4 % Normal 0-1 [facility] Comment on above: Performed By: #### L 501.2450, L501.4020, L500.4050, L100.0100 ####[facility] [address] [place], [address] Eosinophils/100 WBC (Bld) 0.4 % Normal 0-5 [facility] Comment on above: Performed By: #### L 501.2450, L501.4020, L500.4050, L100.0100 ####[facility] [address] [place], [address] Erythrocyte distribution width (RBC) [Ratio] 12.6 % Normal 11.6-14.6 [facility] Comment on above: Performed By: #### L 501.2450, L501.4020, L500.4050, L100.0100 ####[facility] [address] [place], [address] Hematocrit (Bld) [Volume fraction] 43.6 % Normal 37-47 [facility] Comment on above: Performed By: #### L 501.2450, L501.4020, L500.4050, L100.0100 ####[facility] [address] [place], [address] Hemoglobin (Bld) [Mass/Vol] 14.9 g/dL Normal 12.0-15.0 [facility] Comment on above: Performed By: #### L 501.2450, L501.4020, L500.4050, L100.0100 ####[facility] [address] [place], [address] IG% 0.900 Normal 0.0-0.9 [facility] Comment on above: Result Comment: IG% - Immature Granulocytes (promyelocytes, myelocytes and metamyelocytes) > 1% indicates that a LEFT SHIFT is Present. Performed By: #### L 501.2450, L501.4020, L500.4050, L100.0100 ####[facility] [address] [place], [address] Lymphocytes/100 WBC (Bld) 17.3 % Low 19-41 [facility] Comment on above: Performed By: #### L 501.2450, L501.4020, L500.4050, L100.0100 ####[facility] [address] [place], [address] MCH (RBC) [Entitic mass] 30.3 pg Normal 27.0-32.0 [facility] Comment on above: Performed By: #### L 501.2450, L501.4020, L500.4050, L100.0100 ####[facility] [address] [place], [address] MCHC (RBC) [Mass/Vol] 34.2 g/dL Normal 32-36 [facility] Comment on above: Performed By: #### L 501.2450, L501.4020, L500.4050, L100.0100 ####[facility] [address] [place], [address] MCV (RBC) [Entitic vol] 88.8 fL Normal 81-99 [facility] Comment on above: Performed By: #### L 501.2450, L501.4020, L500.4050, L100.0100 ####[facility] [address] [place], [address] Monocytes/100 WBC (Bld) 5.0 % Normal 0-10 [facility] Comment on above: Performed By: #### L 501.2450, L501.4020, L500.4050, L100.0100 ####[facility] [address] [place], [address] Neutrophils/100 WBC (Bld) 76.0 % High 47-70 [facility] Comment on above: Performed By: #### L 501.2450, L501.4020, L500.4050, L100.0100 ####[facility] [address] [place], [address] Nucleated RBC (Bld) [#/Vol] 0 10*3/uL Normal 0-5 [facility] Comment on above: Performed By: #### L 501.2450, L501.4020, L500.4050, L100.0100 ####[facility] [address] [place], [address] Platelet mean volume (Bld) [Entitic vol] 9.5 fL Normal 6.2-12.0 [facility] Comment on above: Performed By: #### L 501.2450, L501.4020, L500.4050, L100.0100 ####[facility] [address] [place], [address] Platelets (Bld) [#/Vol] 229 10*3/uL Normal 150-450 [facility] Comment on above: Performed By: #### L 501.2450, L501.4020, L500.4050, L100.0100 ####[facility] [address] [place], [address] RBC (Bld) [#/Vol] 4.91 10*6/uL Normal 4.2-5.4 [facility] Comment on above: Performed By: #### L 501.2450, L501.4020, L500.4050, L100.0100 ####[facility] [address] [place], [address] RDW SD 41.6 fl Normal 35.1-43.9 [facility] Comment on above: Performed By: #### L 501.2450, L501.4020, L500.4050, L100.0100 ####[facility] [address] [place], [address] WBC (Bld) [#/Vol] 6.8 10*3/uL Normal 4.4-11.0 [facility] Comment on above: Performed By: #### L 501.2450, L501.4020, L500.4050, L100.0100 ####[facility] [address] [place], [address] Carbon dioxide measurementOr dered By: Kerwin Benítez on 09-15-2024 CO2 [Moles/Vol] 23.0 mmol/L 21.0-32.0 [facility] Chest PA and Lateralon 09-15 Chest PA and Lateral [facility] [address] [place] [address] Chest PA and Lateral MR#: [id number] Acct: [id number] Name: NARESHMARION LEIGH MARVIN Rep #: [id number] : 1965 F 58 From: Isaac Mathis MD PCP: Dr. Marion Hurtado, Status: [facility] ER Study: Chest PA and Lateral Date of Exam: 09/15/24 Exam# [id number] Ordering Dr: Kerwin Benítez LOGISTICS PLANNER-C EXAM: XR Chest, 2 Views CLINICAL INDICATION: TECHNIQUE: Frontal and lateral views of the chest. COMPARISON: No relevant prior studies available. FINDINGS: LUNGS AND PLEURAL SPACES: Unremarkable. No consolidation. No pneumothorax. HEART: Unremarkable. No cardiomegaly. MEDIASTINUM: Unremarkable. Normal mediastinal contour. BONES/JOINTS: Unremarkable. No acute fracture. RAD/Chest PA and Lateral IMPRESSION: No acute cardiopulmonary process. Reading [facility] CC: DEX Benítez; Dr. Marion Hurtado, Animal Care Technician: Signed Normal [facility] Chloride measurementOrdered By: Kerwin Benítez on 09-15-2024 Chloride [Moles/Vol] 108 mmol/L High 98-107 [facility] Comprehensive Metabolic Prof ilon 09-15-2024 Albumin [Mass/Vol] 3.4 g/dL Normal 3.2-5.0 [facility] Comment on above: Order Comment: 'TROP ' Serial specimen #1, #2 or #3: 1 Performed By: #### L 501.2450, L501.4020, L500.4050, L100.0100 ####[facility] [address] [place], [address] Albumin/Globulin [Mass ratio] 1.0 {ratio} Normal 0.9-2.4 [facility] Comment on above: Order Comment: 'TROP ' Serial specimen #1, #2 or #3: 1 Performed By: #### L 501.2450, L501.4020, L500.4050, L100.0100 ####[facility] [address] [place], [address] ALK P 56 U/L Normal 45-117 [facility] Comment on above: Order Comment: 'TROP ' Serial specimen #1, #2 or #3: 1 Performed By: #### L 501.2450, L501.4020, L500.4050, L100.0100 ####[facility] [address] [place], [address] ALT [Catalytic activity/Vol] 21 U/L Normal 13-56 [facility] Comment on above: Order Comment: 'TROP ' Serial specimen #1, #2 or #3: 1 Performed By: #### L 501.2450, L501.4020, L500.4050, L100.0100 ####[facility] [address] [place], [address] AST [Catalytic activity/Vol] 17 U/L Normal 15-37 [facility] Comment on above: Order Comment: 'TROP ' Serial specimen #1, #2 or #3: 1 Performed By: #### L 501.2450, L501.4020, L500.4050, L100.0100 ####[facility] [address] [place], [address] Bilirubin [Mass/Vol] 0.60 mg/dL Normal 0.20-1.00 [facility] Comment on above: Order Comment: 'TROP ' Serial specimen #1, #2 or #3: 1 Result Comment: For patients on eltrombopag therapy, use of Dimension [place] TBIL is not recommended. Performed By: #### L 501.2450, L501.4020, L500.4050, L100.0100 ####[facility] [address] [place], [address] BUN/CRE 14.9 RATIO Normal 10-20 [facility] Comment on above: Order Comment: 'TROP ' Serial specimen #1, #2 or #3: 1 Performed By: #### L 501.2450, L501.4020, L500.4050, L100.0100 ####[facility] [address] [place], [address] CA,Total 8.9 mg/dL Normal 8.5-10.1 [facility] Comment on above: Order Comment: 'TROP ' Serial specimen #1, #2 or #3: 1 Performed By: #### L 501.2450, L501.4020, L500.4050, L100.0100 ####[facility] [address] [place], [address] Chloride [Moles/Vol] 108 mmol/L High 98-107 [facility] Comment on above: Order Comment: 'TROP ' Serial specimen #1, #2 or #3: 1 Performed By: #### L 501.2450, L501.4020, L500.4050, L100.0100 ####[facility] [address] [place], [address] CO2 [Moles/Vol] 23.0 mmol/L Normal 21.0-32.0 [facility] Comment on above: Order Comment: 'TROP ' Serial specimen #1, #2 or #3: 1 Performed By: #### L 501.2450, L501.4020, L500.4050, L100.0100 ####[facility] [address] [place], [address] Creatinine [Mass/Vol] 1.14 mg/dL High 0.55-1.02 [facility] Comment on above: Order Comment: 'TROP ' Serial specimen #1, #2 or #3: 1 Result Comment: The validity of the calculated GFR GFRAA in patients over 70 years has not been determined. Clinical correlation is essential. Performed By: #### L 501.2450, L501.4020, L500.4050, L100.0100 ####[facility] [address] [place], [address] ECRCL 62.87 ml/min Normal [facility] Comment on above: Order Comment: 'TROP ' Serial specimen #1, #2 or #3: 1 Performed By: #### L 501.2450, L501.4020, L500.4050, L100.0100 ####[facility] [address] [place], [address] EST GFR - AA 63 mL/min Normal >60 [facility] Comment on above: Order Comment: 'TROP ' Serial specimen #1, #2 or #3: 1 Result Comment: Afri can Maltese GFR Calc Performed By: #### L 501.2450, L501.4020, L500.4050, L100.0100 ####[facility] [address] [place], [address] GAP 8 Normal 5-15 [facility] Comment on above: Order Comment: 'TROP ' Serial specimen #1, #2 or #3: 1 Performed By: #### L 501.2450, L501.4020, L500.4050, L100.0100 ####[facility] [address] [place], [address] GFR/1.73 sq M.predicted among non-blacks MDRD (S/P/Bld) [Vol rate/Area] 52 mL/min/{1.73_m2} Low >60 [facility] Comment on above: Order Comment: 'TROP ' Serial specimen #1, #2 or #3: 1 Result Comment: Non- GFR Calc Performed By: #### L 501.2450, L501.4020, L500.4050, L100.0100 ####[facility] [address] [place], [address] Globulin (S) [Mass/Vol] 3.5 g/dL Normal 2.2-4.2 [facility] Comment on above: Order Comment: 'TROP ' Serial specimen #1, #2 or #3: 1 Performed By: #### L 501.2450, L501.4020, L500.4050, L100.0100 ####[facility] [address] [place], [address] Glucose [Mass/Vol] 124 mg/dL High 74-106 [facility] Comment on above: Order Comment: 'TROP ' Serial specimen #1, #2 or #3: 1 Result Comment: Fast ing Glucose result from 100 to 125 mg/dL suggests IMPAIRED HOMEOSTASIS per A.D.A. criteria. Performed By: #### L 501.2450, L501.4020, L500.4050, L100.0100 ####[facility] [address] [place], [address] Potassium [Moles/Vol] 3.8 mmol/L Normal 3.5-5.1 [facility] Comment on above: Order Comment: 'TROP ' Serial specimen #1, #2 or #3: 1 Performed By: #### L 501.2450, L501.4020, L500.4050, L100.0100 ####[facility] [address] [place], [address] Sodium [Moles/Vol] 139 mmol/L Normal 136-145 [facility] Comment on above: Order Comment: 'TROP ' Serial specimen #1, #2 or #3: 1 Performed By: #### L 501.2450, L501.4020, L500.4050, L100.0100 ####[facility] [address] [place], [address] T PROT 6.9 g/dL Normal 6.4-8.2 [facility] Comment on above: Order Comment: 'TROP ' Serial specimen #1, #2 or #3: 1 Performed By: #### L 501.2450, L501.4020, L500.4050, L100.0100 ####[facility] [address] [place], [address] Urea nitrogen [Mass/Vol] 17 mg/dL Normal 7-18 [facility] Comment on above: Order Comment: 'TROP ' Serial specimen #1, #2 or #3: 1 Performed By: #### L 501.2450, L501.4020, L500.4050, L100.0100 ####[facility] [address] [place], [address] D-Dimer Quantitative (DVT/PE )on 09-15-2024 D-DIMER QUANT 0.27 FEU/ug/m Normal 0.27-0.49 [facility] Comment on above: Result Comment: NORM AL D-Dimer level (<0.50) indicates no DVT or PE. Performed By: #### L 300.8000 #### [facility] [address] [place], [address] D-dimer measurement for deep venous thrombosisOrdered By: Kerwin Benítez on 09-15-2024 D-Dimer Quantitative (PE/DVT) 0.27 FEU/ug/m 0.27-0.49 [facility] Comment on above: NORMAL D-Dimer level (<0.50) indicates no DVT or PE. Emergency Department Summary on 09-15-[address] [facility] Medical Records Department [address] [place] [address] Emergency Department Summary 09/15/24 MR#: [id number] Acct: [id number] Name: MARION INFANTE Rep #: [id number] : 1965 58 From: Zeb Chin MD [...] denies sick contacts. Denies any specific diarrhea. [facility] Medical History (Updated 09/15/24 @ 15:[address] Zeb Chin MD) PAC (premature atrial contraction) PVC's (premature [...] and affect. (more content not included)... Normal [facility] Eosinophil percentageOrdered By: Kerwin Benítez on 09-15-2024 Eosinophils/100 WBC (Bld) 0.4 % 0-5 [facility] Epithelial cells.squamous LM Ql (Urine sed)Ordered By: Kerwin Benítez on 09-15-2024 Epithelial cells.squamous LM.HPF (Urine sed) [#/Area] 0 /[HPF] 5-10 [facility] Erythrocyte distribution wid th ratioOrdered By: Kerwin Benítez on 09-15-2024 Erythrocyte distribution width (RBC) [Ratio] 12.6 % 11.6-14.6 [facility] Erythrocyte distribution wid th standard deviationOrdered By: Kerwin Benítez on 09-15-2024 Erythrocyte distribution width (RBC) [Entitic vol] 41.6 fL 35.1-43.9 [facility] Estimated glomerular filtrat ion rate (GFR) AmericanOrdered By: Kerwin Benítez on 09-15-2024 Estimated GFR (MDRD) Amer 63 mL/min >60 [facility] Comment on above: GFR Calc Estimation of creatinine mari aranceOrdered By: Kerwin Benítez on 09-15-2024 Estimated Creatinine Clearance Calc 62.87 ml/min [facility] Glomerular filtration rate ( GFR) estimationOrdered By: Kerwin Benítez on 09-15-2024 Estimated GFR (MDRD) Non-Af Amer 52 mL/min Low >60 [facility] Comment on above: Non- GFR Calc Glucose Ql (U)Ordered By: Ron Benítez on 09-15-2024 Glucose (U) [Mass/Vol] 1000 mg/dL High Normal [facility] Glucose measurementOrdered B y: Kerwin Benítez on 09-15-2024 Glucose [Mass/Vol] 124 mg/dL High 74-106 [facility] Comment on above: Fasting Glucose resu lt from 100 to 125 mg/dL suggests IMPAIRED HOMEOSTASIS per A.D.A. criteria. Hematocrit Auto (Bld) [Volum e fraction]Ordered By: Kerwin Benítez on 09-15-2024 Hematocrit (Bld) [Volume fraction] 43.6 % 37-47 [facility] Hemoglobin measurementOrdere d By: Kerwin Benítez on 09-15-2024 Hemoglobin (Bld) [Mass/Vol] 14.9 g/dL 12.0-15.0 [facility] Immature granulocytes/100 WB C Auto (Bld)Ordered By: Kerwin Benítez on 09-15-2024 Immature granulocytes/100 WBC (Bld) 0.900 % 0.0-0.9 [facility] Comment on above: IG% - Immature Granu locytes (promyelocytes, myelocytes and metamyelocytes) > 1% indicates that a LEFT SHIFT is Present. Influenza virus A and B and SARS-CoV-2 (COVID-19) and Respiratory syncytial virus RNAOrdered By: Kerwin Benítez on 09-15-2024 SARS-CoV-2 (COVID-19) RNA LUCIA+probe Ql (Unsp spec) [facility] Ketones Test strip Ql (U)Ord ered By: Kerwin Benítez on 09-15-2024 Ketones Ql (U) 5 mg/dl High Negative [facility] L501.4020on 02-03-2025 TROPONIN-I HS 4 pg/mL Normal 3.0-54.0 [facility] Comment on above: Order Comment: 'TROP ' Serial specimen #1, #2 or #3: 1 Result Comment: Rosemary givens Note: New Test Units and Gender Specific Reference Ranges. For more information see Policy Stat Procedure [place] High Sensitivity Troponin (TNIH) and attachments. Performed By: #### L 501.2450, L501.4020, L500.4050, L100.0100 ####[facility] [address] [place], [address] Laboratory - Chemistry and C hemistry - challengeOrdered By: Kerwin Benítez on 09-15-2024 AST [Catalytic activity/Vol] 17 U/L 15-37 [facility] Lipaseon 09-15-2024 Lipase [Catalytic activity/Vol] 81 U/L High 13-75 [facility] Comment on above: Order Comment: 'TROP ' Serial specimen #1, #2 or #3: 1 Result Comment: Rosemary givens note: LIPASE revised reference range effective 22. New Lipase methodology. Expected to produce lower values than the previous assay method. NEW Reference Range: 13 - 75 U/L Performed By: #### L 501.2450, L501.4020, L500.4050, L100.0100 ####[facility] [address] [place], [place], [address] Lipase measurementOrdered By : Kerwin Benítez on 09-15-2024 Lipase [Catalytic activity/Vol] 81 U/L High 13-75 [facility] Comment on above: Please note:LIPASE r evised reference range effective 22. New Lipase methodology. Expected to produce lower values than the previous assay method. NEW Reference Range: 13 - 75 U/L Lymphocytes Auto (Unsp spec) [#/Vol]Ordered By: Kerwin Benítez on 09-15-2024 Lymphocytes (Bld) [#/Vol] 1.17 10*3/uL 0.83-4.51 [facility] Lymphocytes/100 WBC Auto (Un sp spec)Ordered By: Kerwin Benítez on 09-15-2024 Lymphocytes/100 WBC (Bld) 17.3 % Low 19-41 [facility] M100.678on 09-15-2024 M100.678 Pending SARS-CoV-2 (COVID 19) Negative INFLUENZA A Negative INFLUENZA B Negative RSV PCR Negative Normal [facility] Comment on above: Performed By: #### M 100.678 ####[facility] [address] [place], [address] MCV (mean corpuscular volume ) determinationOrdered By: Kerwin Benítez on 09-15-2024 MCV (RBC) [Entitic vol] 88.8 fL 81-99 [facility] Mean corpuscular hemoglobin (MCH) determinationOrdered By: Kerwin Benítez on 09-15-2024 MCH (RBC) [Entitic mass] 30.3 pg 27.0-32.0 [facility] Mean corpuscular hemoglobin concentration (MCHC) determinationOrdered By: Kerwin Benítez on 09-15-2024 MCHC (RBC) [Mass/Vol] 34.2 g/dL 32-36 [facility] Mean platelet volume determi nationOrdered By: Kerwin Benítez on 09-15-2024 Platelet mean volume (Bld) [Entitic vol] 9.5 fL 6.2-12.0 [facility] Microscopic analysis of urin e for red blood cells (RBC)Ordered By: Kerwin Benítez on 09-15-2024 Urine RBC 0 SEEN /hpf 0-5 [facility] Monocyte percentageOrdered B y: Kerwin Benítez on 09-15-2024 Monocytes/100 WBC (Bld) 5.0 % 0-10 [facility] Mucus LM Ql (Urine sed)Order ed By: Kerwin Benítez on 09-15-2024 Mucus Ql (Urine sed) 0 SEEN /hpf [facility] Neutrophil percentageOrdered By: Kerwin Benítez on 09-15-2024 Neutrophils/100 WBC (Bld) 76.0 % High 47-70 [facility] Nitrite Test strip Ql (U)Ord ered By: Kerwin Benítez on 09-15-2024 Nitrite Ql (U) Negative Negative [facility] Nucleated red blood cell per centageOrdered By: Kerwin Benítez on 09-15-2024 Nucleated RBC/100 WBC (Bld) [Ratio] 0 % 0-5 [facility] Platelet countOrdered By: Ron Benítez on 09-15-2024 Platelets (Bld) [#/Vol] 229 10*3/uL 150-450 [facility] Potassium measurementOrdered By: Kerwin Benítez on 09-15-2024 Potassium [Moles/Vol] 3.8 mmol/L 3.5-5.1 [facility] Protein Test strip Ql (U)Ord ered By: Kerwin Benítez on 09-15-2024 Protein Ql (U) Negative Negative [facility] RBC Auto (Bld) [#/Vol]Ordere d By: Kerwin Benítez on 09-15-2024 RBC (Bld) [#/Vol] 4.91 10*6/uL 4.2-5.4 [facility] Serum anion gap measurementO rdered By: Kerwin Benítez on 09-15-2024 Anion gap [Moles/Vol] 8 mmol/L 5-15 [facility] Serum globulin measurementOr dered By: Kerwin Benítez on 09-15-2024 Globulin (S) [Mass/Vol] 3.5 g/dL 2.2-4.2 [facility] Serum or plasma alanine wolfe otransferase (ALT) measurementOrdered By: Kerwin Benítez on 09-15-2024 ALT [Catalytic activity/Vol] 21 U/L 13-56 [facility] Serum or plasma albumin almas urement (mass/volume)Ordered By: Kerwin Benítez on 09-15-2024 Albumin [Mass/Vol] 3.4 g/dL 3.2-5.0 [facility] Serum or plasma alkaline sammy sphatase measurementOrdered By: Kerwin Benítez on 09-15-2024 ALP [Catalytic activity/Vol] 56 U/L 45-117 [facility] Serum or plasma calcium almas urement (mass/volume)Ordered By: Kerwin Benítez on 09-15-2024 Calcium [Mass/Vol] 8.9 mg/dL 8.5-10.1 [facility] Serum or plasma creatinine m easurement (mass/volume)Ordered By: Kerwin Benítez on 09-15-2024 Creatinine [Mass/Vol] 1.14 mg/dL High 0.55-1.02 [facility] Comment on above: The validity of the calculated GFR & GFRAA in patients over 70 years has not been determined. Clinical correlation is essential. Serum or plasma urea nitroge n measurement (mass/volume)Ordered By: Kerwin Benítez on 09-15-2024 Urea nitrogen [Mass/Vol] 17 mg/dL 7-18 [facility] Sodium levelOrdered By: Kerwin Benítez on 09-15-2024 Sodium [Moles/Vol] 139 mmol/L 136-145 [facility] Total proteinOrdered By: Gale Benítez on 09-15-2024 Protein [Mass/Vol] 6.9 g/dL 6.4-8.2 [facility] Troponin IOrdered By: Kerwin hernández on 09-15-2024 Troponin I High Sensitivity 4 pg/mL 3.0-54.0 [facility] Comment on above: Please Note: New Joselyn t Units and Gender Specific Reference Ranges. For more information see Policy Stat Procedure [place] High Sensitivity Troponin (TNIH) and attachments. Urinalysis, Completeon 09-15 EPI,SQUAMOUS 0-5 SEEN Normal 5-10 [facility] Comment on above: Order Comment: CLEAN CATCH Performed By: #### L 400.0001 ####[facility] [address] [place], [address] WBC 0-5 SEEN Normal 0-5 [facility] Comment on above: Order Comment: CLEAN CATCH Performed By: #### L 400.0001 ####[facility] [address] [place], [address] BACTERIA 0 SEEN Normal None Seen [facility] Comment on above: Order Comment: CLEAN CATCH Performed By: #### L 400.0001 ####[facility] [address] [place], [address] Mucus Ql (Urine sed) 0 SEEN Normal [facility] Comment on above: Order Comment: CLEAN CATCH Performed By: #### L 400.0001 ####[facility] [address] [place], [address] RBC 0 SEEN Normal 0-5 [facility] Comment on above: Order Comment: CLEAN CATCH Performed By: #### L 400.0001 ####[facility] [address] [place], [address] Urine blood detectionOrdered By: Kerwin Benítez on 09-15-2024 Urine Occult Blood Negative Negative [facility] Urine clarityOrdered By: Gale Benítez on 09-15-2024 Clarity (U) Clear Clear [facility] Urine color determinationOrd ered By: Kerwin Benítez on 09-15-2024 Color (U) Yellow Yellow [facility] Urine leukocyte esterase det ection by dipstickOrdered By: Kerwin Benítez on 09-15-2024 Leukocyte esterase Test strip Ql (U) 100 /ul High Negative [facility] Urine pHOrdered By: Kerwin rowley on 09-15-2024 pH (U) 7.0 [pH] 5.0 - 8.0 [facility] Urine sediment bacteria coun t by microscopy (number/high power field)Ordered By: Kerwin Benítez on 09-15-2024 Bacteria LM.HPF (Urine sed) [#/Area] 0 /[HPF] None Seen [facility] Urine specific gravity measu rementOrdered By: Kerwin Benítez on 09-15-2024 Specific gravity (U) [Rel density] 1.005 1.002-1.030 [facility] Urobilinogen Ql (U)Ordered B y: Kerwin Benítez on 09-15-2024 Urine Urobilinogen Normal mg/dl Normal [facility] White blood cell (WBC) count Ordered By: Kerwin Benítez on 09-15-2024 WBC (Bld) [#/Vol] 6.8 10*3/uL 4.4-11.0 [facility] White blood cell countOrdere d By: Kerwin Benítez on 09-15-2024 Urine WBC 0-5 SEEN /hpf 0-5 [facility] PAP IG w/Reflex HPV GDLNon 1 1-07-2024 ADEQ Comment Normal . [facility] Comment on above: Order Comment: Speci men Comment: [id number] Comment: Source.............Cervix;EndocervixSpecimen Comment: No. of containers..01 ThinPrep Vial Result Comment: Sati sfactory for evaluation. Endocervical and/or squamous metaplastic cells (endocervical component) are present. Performed By: #### L 7400.0290 ####[facility] [address] [facility] [id number] Age Gdln ACOG T 30-65 Normal . [facility] Comment on above: Order Comment: Speci men Comment: [id number] Comment: Source.............Cervix;EndocervixSpecimen Comment: No. of containers..01 ThinPrep Vial Performed By: #### L 7400.0290 ####[facility] [address] [place] [address] COMM . Normal . [facility] Comment on above: Order Comment: Speci men Comment: [id number] Comment: Source.............Cervix;EndocervixSpecimen Comment: No. of containers..01 ThinPrep Vial Performed By: #### L 7400.0290 ####[facility] [address] [place], [address] COMMENT Comment Normal . [facility] Comment on above: Order Comment: Speci men Comment: [id number] Comment: Source.............Cervix;EndocervixSpecimen Comment: No. of containers..01 ThinPrep Vial Result Comment: This liquid based ThinPrep(R) pap test was screened with the use of an image guided system. Performed By: #### L 7400.0290 ####[facility] [address] [place] [id number] DIAG Comment Normal . [facility] Comment on above: Order Comment: Speci men Comment: [id number] Comment: Source.............Cervix;EndocervixSpecimen Comment: No. of containers..01 ThinPrep Vial Result Comment: NEGA TIVE FOR INTRAEPITHELIAL LESION OR MALIGNANCY. Performed By: #### L 7400.0290 ####[facility] [address] [place], [place], [address] HPV APTIMA, HR Negative Normal Negative [facility] Comment on above: Order Comment: Speci men Comment: [id number] Comment: Source.............Cervix;EndocervixSpecimen Comment: No. of containers..01 ThinPrep Vial Result Comment: This nucleic acid amplification test detects fourteen high- risk HPV types (16,18,31,33,35,39,45,51,52,56,58,59,66,68) without differentiation. Performed By: #### L 7400.0290 ####[facility] [address] [facility] [address] [place], [place], [address] HPV Oma Rfx Comment Normal . [facility] Comment on above: Order Comment: Speci men Comment: [id number] Comment: Source.............Cervix;EndocervixSpecimen Comment: No. of containers..01 ThinPrep Vial Result Comment: Crit eria not met, HPV Genotype not performed. Performed at: =[address] [id number] Electrotyper Helper: Carmen Banegas MD, Phone: [phone] Performed at: [address], [place] [id number] Electrotyper Helper: Carmen Banegas MD, Phone: [phone] Performed By: #### L 7400.0290 ####[facility] [address] [facility]. [place], [place], [address] PAPSMR Comment Normal . [facility] Comment on above: Order Comment: Speci men Comment: [id number] Comment: Source.............Cervix;EndocervixSpecimen Comment: No. of containers..01 ThinPrep Vial Result Comment: The Pap smear is a screening test designed to aid in the detection of premalignant and malignant conditions of the uterine cervix. It is not a diagnostic procedure and should not be used as the sole means of detecting cervical cancer. Both false-positive and false-negative reports do occur. Performed By: #### L 7400.0290 ####[facility] [address] [facility]. [place], [place], [address] PERFORM Comment Normal . [facility] Comment on above: Order Comment: Speci men Comment: [id number] Comment: Source.............Cervix;EndocervixSpecimen Comment: No. of containers..01 ThinPrep Vial Result Comment: Jeanna Nguyen, Intermediate Frame Tender (ASCP) Performed By: #### L 7400.0290 ####[facility] [address] [facility] [place], [place], [id number] SCRN MAMM (CAD)W/KAHLIL BILATo n 04-08-2024 SCRN MAMM (CAD)W/KAHLIL BILAT [facility] [address] [place], [place] [address] SCRN MAMM (CAD)W/KAHLIL BILAT MR#: [id number] Acct: [id number] Name: NARESHMARION JO Rep #: [id number] : 1965 F 58 From: Jameel salinas MD PCP: Dr. [facility] Hurtado, DO Status: [facility] Study: SCRN MAMM (CAD)W/KAHLIL BILAT Date of Exam: 03/14 03/05 Exam# [id number] Ordering Dr: Marion Hurtado DO [id number] MAMMOGRAPHY - BILATERAL SCREENING REASON FOR EXAM: [...] delay biopsy of a clinically suspicious abnormality. [id number] Electronically Signed: Jameel Rodriguez MD at 8:24 EDT , CC: Dr. Marion Hurtado DO Animal Care Technician: Signed Normal [facility] CBC W/Diff, Automatedon 07-2 Absolute Lymph 1.92 X10 3/uL Normal 0.83-4.51 [facility] Comment on above: Performed By: #### L 501.9985, L500.4050, L100.0100, L502.0250, L500.4100 ####[facility] [address] [place], [address] Absolute Neut 3.1 X10 3/uL Normal 2.0-7.7 [facility] Comment on above: Performed By: #### L 501.9985, L500.4050, L100.0100, L502.0250, L500.4100 ####[facility] [address] [place], [address] Basophils/100 WBC (Bld) 0.5 % Normal 0-1 [facility] Comment on above: Performed By: #### L 501.9985, L500.4050, L100.0100, L502.0250, L500.4100 ####[facility] [address] [place], [address] Eosinophils/100 WBC (Bld) 1.4 % Normal 0-5 [facility] Comment on above: Performed By: #### L 501.9985, L500.4050, L100.0100, L502.0250, L500.4100 ####[facility] [address] [place], [address] Erythrocyte distribution width (RBC) [Ratio] 12.8 % Normal 11.6-14.6 [facility] Comment on above: Performed By: #### L 501.9985, L500.4050, L100.0100, L502.0250, L500.4100 ####[facility] [address] [place], [address] Hematocrit (Bld) [Volume fraction] 46.0 % Normal 37-47 [facility] Comment on above: Performed By: #### L 501.9985, L500.4050, L100.0100, L502.0250, L500.4100 ####[facility] [address] [place], [address] Hemoglobin (Bld) [Mass/Vol] 14.9 g/dL Normal 12.0-15.0 [facility] Comment on above: Performed By: #### L 501.9985, L500.4050, L100.0100, L502.0250, L500.4100 ####[facility] [address] [place], [address] IG% 0.400 Normal 0.0-0.9 [facility] Comment on above: Result Comment: IG% - Immature Granulocytes (promyelocytes, myelocytes and metamyelocytes) > 1% indicates that a LEFT SHIFT is Present. Performed By: #### L 501.9985, L500.4050, L100.0100, L502.0250, L500.4100 ####[facility] [address] [place], [address] Lymphocytes/100 WBC (Bld) 34.7 % Normal 19-41 [facility] Comment on above: Performed By: #### L 501.9985, L500.4050, L100.0100, L502.0250, L500.4100 ####[facility] [address] [place], [address] MCH (RBC) [Entitic mass] 29.6 pg Normal 27.0-32.0 [facility] Comment on above: Performed By: #### L 501.9985, L500.4050, L100.0100, L502.0250, L500.4100 ####[facility] [address] [place], [address] MCHC (RBC) [Mass/Vol] 32.4 g/dL Normal 32-36 [facility] Comment on above: Performed By: #### L 501.9985, L500.4050, L100.0100, L502.0250, L500.4100 ####[facility] [address] [place], [address] MCV (RBC) [Entitic vol] 91.5 fL Normal 81-99 [facility] Comment on above: Performed By: #### L 501.9985, L500.4050, L100.0100, L502.0250, L500.4100 ####[facility] [address] [place], [address] Monocytes/100 WBC (Bld) 6.9 % Normal 0-10 [facility] Comment on above: Performed By: #### L 501.9985, L500.4050, L100.0100, L502.0250, L500.4100 ####[facility] [address] [place], [address] Neutrophils/100 WBC (Bld) 56.1 % Normal 47-70 [facility] Comment on above: Performed By: #### L 501.9985, L500.4050, L100.0100, L502.0250, L500.4100 ####[facility] [address] [place], [address] Nucleated RBC (Bld) [#/Vol] 0 10*3/uL Normal 0-5 [facility] Comment on above: Performed By: #### L 501.9985, L500.4050, L100.0100, L502.0250, L500.4100 ####[facility] [address] [place], [address] Platelet mean volume (Bld) [Entitic vol] 9.8 fL Normal 6.2-12.0 [facility] Comment on above: Performed By: #### L 501.9985, L500.4050, L100.0100, L502.0250, L500.4100 ####[facility] [address] [place], [address] Platelets (Bld) [#/Vol] 241 10*3/uL Normal 150-450 [facility] Comment on above: Performed By: #### L 501.9985, L500.4050, L100.0100, L502.0250, L500.4100 ####[facility] [address] [place], [address] RBC (Bld) [#/Vol] 5.03 10*6/uL Normal 4.2-5.4 [facility] Comment on above: Performed By: #### L 501.9985, L500.4050, L100.0100, L502.0250, L500.4100 ####[facility] [address] [place], [address] RDW SD 42.1 fl Normal 35.1-43.9 [facility] Comment on above: Performed By: #### L 501.9985, L500.4050, L100.0100, L502.0250, L500.4100 ####[facility] [address] [place], [address] WBC (Bld) [#/Vol] 5.5 10*3/uL Normal 4.4-11.0 [facility] Comment on above: Performed By: #### L 501.9985, L500.4050, L100.0100, L502.0250, L500.4100 ####[facility] [address] [place], [address] Comprehensive Metabolic Prof [facility] 03-01-2024 Albumin [Mass/Vol] 3.6 g/dL Normal 3.2-5.0 [facility] Comment on above: Performed By: #### L 501.9985, L500.4050, L100.0100, L502.0250, L500.4100 ####[facility] [address] [place], [address] Albumin/Globulin [Mass ratio] 1.1 {ratio} Normal 0.9-2.4 [facility] Comment on above: Performed By: #### L 501.9985, L500.4050, L100.0100, L502.0250, L500.4100 ####[facility] [address] [place], [address] ALK P 52 U/L Normal 45-117 [facility] Comment on above: Performed By: #### L 501.9985, L500.4050, L100.0100, L502.0250, L500.4100 ####[facility] [address] [place], [address] ALT [Catalytic activity/Vol] 21 U/L Normal 13-56 [facility] Comment on above: Performed By: #### L 501.9985, L500.4050, L100.0100, L502.0250, L500.4100 ####[facility] [address] [place], [address] AST [Catalytic activity/Vol] 15 U/L Normal 15-37 [facility] Comment on above: Performed By: #### L 501.9985, L500.4050, L100.0100, L502.0250, L500.4100 ####[facility] [address] [place], [address] Bilirubin [Mass/Vol] 0.50 mg/dL Normal 0.20-1.00 [facility] Comment on above: Result Comment: For patients on eltrombopag therapy, use of Dimension [place] TBIL is not recommended. Performed By: #### L 501.9985, L500.4050, L100.0100, L502.0250, L500.4100 ####[facility] [address] [place], [address] BUN/CRE 16.2 RATIO Normal 10-20 [facility] Comment on above: Performed By: #### L 501.9985, L500.4050, L100.0100, L502.0250, L500.4100 ####[facility] [address] [place], [address] CA,Total 8.7 mg/dL Normal 8.5-10.1 [facility] Comment on above: Performed By: #### L 501.9985, L500.4050, L100.0100, L502.0250, L500.4100 ####[facility] [address] [place], [address] Chloride [Moles/Vol] 103 mmol/L Normal 98-107 [facility] Comment on above: Performed By: #### L 501.9985, L500.4050, L100.0100, L502.0250, L500.4100 ####[facility] [address] [place], [address] CO2 [Moles/Vol] 29.0 mmol/L Normal 21.0-32.0 [facility] Comment on above: Performed By: #### L 501.9985, L500.4050, L100.0100, L502.0250, L500.4100 ####[facility] [address] [place], [address] Creatinine [Mass/Vol] 0.86 mg/dL Normal 0.55-1.02 [facility] Comment on above: Result Comment: The validity of the calculated GFR GFRAA in patients over 70 years has not been determined. Clinical correlation is essential. Performed By: #### L 501.9985, L500.4050, L100.0100, L502.0250, L500.4100 ####[facility] [address] [place], [address] EST GFR - AA 86 mL/min Normal >60 [facility] Comment on above: Result Comment: Afri can Maltese GFR Calc Performed By: #### L 501.9985, L500.4050, L100.0100, L502.0250, L500.4100 ####[facility] [address] [place], [address] GAP 6 Normal 5-15 [facility] Comment on above: Performed By: #### L 501.9985, L500.4050, L100.0100, L502.0250, L500.4100 ####[facility] [address] [place], [address] GFR/1.73 sq M.predicted among non-blacks MDRD (S/P/Bld) [Vol rate/Area] 71 mL/min/{1.73_m2} Normal >60 [facility] Comment on above: Result Comment: Non- GFR Calc Performed By: #### L 501.9985, L500.4050, L100.0100, L502.0250, L500.4100 ####[facility] [address] [place], [address] Globulin (S) [Mass/Vol] 3.3 g/dL Normal 2.2-4.2 [facility] Comment on above: Performed By: #### L 501.9985, L500.4050, L100.0100, L502.0250, L500.4100 ####[facility] [address] [place], [address] Glucose [Mass/Vol] 77 mg/dL Normal 74-106 [facility] Comment on above: Performed By: #### L 501.9985, L500.4050, L100.0100, L502.0250, L500.4100 ####[facility] [address] [place], [address] Potassium [Moles/Vol] 3.8 mmol/L Normal 3.5-5.1 [facility] Comment on above: Performed By: #### L 501.9985, L500.4050, L100.0100, L502.0250, L500.4100 ####[facility] [address] [place], [address] Sodium [Moles/Vol] 138 mmol/L Normal 136-145 [facility] Comment on above: Performed By: #### L 501.9985, L500.4050, L100.0100, L502.0250, L500.4100 ####[facility] [address] [place], [address] T PROT 6.9 g/dL Normal 6.4-8.2 [facility] Comment on above: Performed By: #### L 501.9985, L500.4050, L100.0100, L502.0250, L500.4100 ####[facility] [address] [place], [address] Urea nitrogen [Mass/Vol] 14 mg/dL Normal 7-18 [facility] Comment on above: Performed By: #### L 501.9985, L500.4050, L100.0100, L502.0250, L500.4100 ####[facility] [address] [place], [address] Hemoglobin A1con 03-01-2024 HbA1c (Bld) [Mass fraction] 4.9 % Normal 3.8-5.6 [facility] Comment on above: Result Comment: Norm al < 5.7 % Prediabetic 5.7 - 6.4 % Diabetic >or= 6.5 % Please note range changes. Performed By: #### L 501.9985, L500.4050, L100.0100, L502.0250, L500.4100 ####[facility] [address] [place], [address] Lipid Profileon 03-01-2024 Cholesterol [Mass/Vol] 205 mg/dL High 200 [facility] Comment on above: Result Comment: <200 mg/dL Desirable 200-240 mg/dL Borderline >240 mg/dL High Risk Performed By: #### L 501.9985, L500.4050, L100.0100, L502.0250, L500.4100 ####[facility] [address] [place], [address] Cholesterol in HDL [Mass/Vol] 55 mg/dL Normal [facility] Comment on above: Result Comment: The drugs N-Acetylcysteine and Metamizole may falsely depress this assay. Reference Range HDL <40 mg/dL Low HDL Cholesterol HDL >or= 60 mg/dL High HDL Cholesterol Performed By: #### L 501.9985, L500.4050, L100.0100, L502.0250, L500.4100 ####[facility] [address] [place], [address] Cholesterol in LDL [Mass/Vol] 128 mg/dL Normal 0-130 [facility] Comment on above: Performed By: #### L 501.9985, L500.4050, L100.0100, L502.0250, L500.4100 ####[facility] [address] [place], [address] Cholesterol in VLDL [Mass/Vol] 22 mg/dL Normal 5-40 [facility] Comment on above: Performed By: #### L 501.9985, L500.4050, L100.0100, L502.0250, L500.4100 ####[facility] [address] [place], [address] Triglyceride [Mass/Vol] 110 mg/dL Normal [facility] Comment on above: Result Comment: The drugs N-Acetylcysteine and Metamizole may falsely depress this assay. Serum Triglycerides Reference Interval Normal <150 mg/dL Borderline high 150 - 199 mg/dL High 200 - 499 mg/dL Very High > or = 500 mg/dL Performed By: #### L 501.9985, L500.4050, L100.0100, L502.0250, L500.4100 ####[facility] [address] [place], [address] Microalb:Creat Ratio,Random URon 03-01-2024 Creatinine [Mass/Vol] 73.80 mg/dL Normal NO RANGE EST. [facility] Comment on above: Performed By: #### L 501.9985, L500.4050, L100.0100, L502.0250, L500.4100 ####[facility] [address] [place], [address] MALB:CRE 11.3 mg/g CRE Normal <30 mg/g CRE [facility] Comment on above: Performed By: #### L 501.9985, L500.4050, L100.0100, L502.0250, L500.4100 ####[facility] [address] [place], [address] MICROALBUMIN,UR 8.3 mg/L Normal NO RANGE EST. [facility] Comment on above: Performed By: #### L 501.9985, L500.4050, L100.0100, L502.0250, L500.4100 ####[facility] [address] [place], [address] Urine Cultureon 02-29-2024 [facility] Presumptive E. coli [place] Count >100,000 Streptococcus agalactiae (B) [place] Count 25,000-50,000 Presumptive E. coli: REACTION Ampicillin [...] S Vancomycin Islt LEONIDES 0.5 S Normal [facility] Comment on above: Performed By: #### M 100.2200 #### [facility] [address] [place], [address] Absolute lymphocyte countOrd ered By: Dr. Hurtado on 12-01-2022 Lymphocytes Auto (Unsp spec) [#/Vol] 2.36 10*3/uL 0.83-4.51 [facility] Basophil percentageOrdered B y: Dr. Hurtado on 12-01-2022 Basophils/100 WBC (Bld) 0.5 % 0-1 [facility] Bilirubin [Mass/Vol] 0.50 mg/dL 0.20-1.00 [facility] Comment on above: For patients on eltr ombopag therapy, use of Dimension [place] TBIL is not recommended. Chloride [Moles/Vol] 107 mmol/L 98-107 [facility] Cholesterol [Mass/Vol] 247 mg/dL <200 [facility] Comment on above: <200 mg/dL Desirable 200-240 mg/dL Borderline >240 mg/dL High Risk Eosinophils/100 WBC (Bld) 1.6 % 0-5 [facility] Glucose [Mass/Vol] 91 mg/dL 74-106 [facility] Neutrophils (Bld) [#/Vol] 3.2 10*3/uL 2.0-7.7 [facility] Neutrophils/100 WBC (Bld) 51.9 % 47-70 [facility] Potassium [Moles/Vol] 4.5 mmol/L 3.5-5.1 [facility] Protein [Mass/Vol] 7.1 g/dL 6.4-8.2 [facility] Sodium [Moles/Vol] 136 mmol/L 136-145 [facility] Triglyceride [Mass/Vol] 171 mg/dL <199 [facility] Comment on above: The drugs N-Acetylcy steine and Metamizole may falsely depress this assay.Serum Triglycerides Reference Interval Normal <150 mg/dL Borderline high 150 - 199 mg/dL High 200 - 499 mg/dL Very High > or = 500 mg/dL WBC (Bld) [#/Vol] 6.2 10*3/uL 4.4-11.0 [facility] Blood erythrocytes count (nu mber/volume)Ordered By: Dr. Hurtado on 12-01-2022 RBC (Bld) [#/Vol] 5.07 10*6/uL 4.2-5.4 [facility] Blood hemoglobin measurement (mass/volume)Ordered By: Dr. Hurtado on 12-01-2022 Hemoglobin (Bld) [Mass/Vol] 15.3 g/dL 12.0-15.0 [facility] Blood lymphocytes/100 leukoc ytesOrdered By: Dr. Hurtado on 12-01-2022 Lymphocytes/100 WBC (Bld) 38.4 % 19-41 [facility] Blood monocytes/100 leukocyt esOrdered By: Dr. Hurtado on 12-01-2022 Monocytes/100 WBC (Bld) 7.3 % 0-10 [facility] Blood platelet mean volumeOr dered By: Dr. Hurtado on 12-01-2022 Platelet mean volume (Bld) [Entitic vol] 9.9 fL 6.2-12.0 [facility] Determination of erythrocyte mean corpuscular volume (MCV)Ordered By: Dr. Hurtado on 12-01-2022 MCV (RBC) [Entitic vol] 94.1 fL 81-99 [facility] Hematocrit Auto (Bld) [Volum e fraction]Ordered By: Dr. Hurtado on 12-01-2022 Hematocrit (Bld) [Volume fraction] 47.7 % 37-47 [facility] - Chemistry and C hemistry - challengeOrdered By: Dr. Hurtado on 12-01-2022 ALP [Catalytic activity/Vol] 47 U/L 45-117 [facility] ALT [Catalytic activity/Vol] 23 U/L 13-56 [facility] CO2 [Moles/Vol] 27.0 mmol/L 21.0-32.0 [facility] Globulin (S) [Mass/Vol] 3.5 g/dL 2.2-4.2 [facility] Urea nitrogen/Creatinine [Mass ratio] 17.9 mg/mg 10-20 [facility] - Hematology and Cell countsOrdered By: Dr. Hurtado on 12-01-2022 Erythrocyte distribution width (RBC) [Entitic vol] 46.7 fL 35.1-43.9 [facility] Erythrocyte distribution width (RBC) [Ratio] 13.6 % 11.6-14.6 [facility] Immature granulocytes/100 WBC (Bld) 0.300 % 0.0-0.9 [facility] Comment on above: IG% - Immature Granu locytes (promyelocytes, myelocytes and metamyelocytes) > 1% indicates that a LEFT SHIFT is Present. MCH (RBC) [Entitic mass] 30.2 pg 27.0-32.0 [facility] Nucleated RBC/100 WBC (Bld) [Ratio] 0 % 0-5 [facility] MCHC Auto (RBC) [Mass/Vol]Or dered By: Dr. Hurtado on 12-01-2022 MCHC (RBC) [Mass/Vol] 32.1 g/dL 32-36 [facility] No Panel InformationOrdered By: Dr. Hurtado on 12-01-2022 Estimated GFR (MDRD) Amer 90 mL/min >60 [facility] Comment on above: GFR Calc Estimated GFR (MDRD) Non-Af Amer 74 mL/min >60 [facility] Comment on above: Non- GFR Calc Urine Microalbumin/Creatinine Ratio 14.5 mg/g CRE <30 [facility] Platelets bldOrdered By: Dr. Hurtado on 12-01-2022 Platelets (Bld) [#/Vol] 273 10*3/uL 150-450 [facility] Serum or plasma albumin almas urement (mass/volume)Ordered By: Dr. Hurtado on 12-01-2022 Albumin [Mass/Vol] 3.6 g/dL 3.2-5.0 [facility] Serum or plasma albumin/glob ulin mass ratioOrdered By: Dr. Hurtado on 12-01-2022 Albumin/Globulin [Mass ratio] 1.0 {ratio} 0.9-2.4 [facility] Serum or plasma calcium almas urement (mass/volume)Ordered By: Dr. Hurtado on 12-01-2022 Calcium [Mass/Vol] 9.4 mg/dL 8.5-10.1 [facility] Serum or plasma cholesterol in HDL measurement (mass/volume)Ordered By: Dr. Hurtado on 12-01-2022 Cholesterol in HDL [Mass/Vol] 50 mg/dL >40 [facility] Comment on above: The drugs N-Acetylcy steine and Metamizole may falsely depress this assay. Reference Range HDL <40 mg/dL Low HDL Cholesterol HDL >or= 60 mg/dL High HDL Cholesterol Serum or plasma cholesterol in VLDL measurement (mass/volume)Ordered By: Dr. Hurtado on 12-01-2022 Cholesterol in VLDL [Mass/Vol] 34 mg/dL 5-40 [facility] Serum or plasma creatinine m easurement (mass/volume)Ordered By: Dr. Hurtado on 12-01-2022 Creatinine [Mass/Vol] 0.84 mg/dL 0.55-1.02 [facility] Comment on above: The validity of the calculated GFR & GFRAA in patients over 70 years has not been determined. Clinical correlation is essential. Serum or plasma low density lipoprotein (LDL) cholesterol measurement (mass/volume)Ordered By: Dr. Hurtado on 12-01-2022 Cholesterol in LDL [Mass/Vol] 163 mg/dL 0-130 [facility] Serum or plasma urea nitroge n measurement (mass/volume)Ordered By: Dr. Hurtado on 12-01-2022 Urea nitrogen [Mass/Vol] 15 mg/dL 7-18 [facility] Thin prep Papanicolaou smear with manual screeningOrdered By: Dr. Hurtado on 12-01-2022 Thin prep Papanicolaou smear with manual screening 14 U/L 15-37 [facility] Thin prep Papanicolaou smear with manual screening 2 5-15 [facility] Thin prep Papanicolaou smear with manual screening 10.6 mg/L NO RANGE EST. [facility] Urine creatinine measurement (mass/volume)Ordered By: Dr. Hurtado on 12-01-2022 Creatinine (U) [Mass/Vol] 73.30 mg/dL NO RANGE EST. [facility] Whole blood hemoglobin A1c/t otal hemoglobin ratio (mass fraction)Ordered By: Dr. Hurtado on 12-01-2022 HbA1c (Bld) [Mass fraction] 5.4 % 3.8-5.6 [facility] Comment on above: Normal < 5.7 % Predi abetic 5.7 - 6.4 % Diabetic >or= 6.5 % Please note range changes. Culture, urine Bacteria identified Cx Nom (U) Mixed Gram Pos & Gram Neg Org [facility] Work Phone: Vital Signs Date Time Vital Sign Value Performing Clinician Kraig lakhani 09-15-2024 14:36-0500 Body temperature 97.2 [degF] Dr. [place] Hurtado DO Work Phone: [facility] 09-15-2024 14:36-0500 Diastolic blood pressure 77 mm[Hg] Dr. [place] Hurtado DO Work Phone: [facility] 09-15-2024 14:36-0500 Heart rate 73 /min Dr. [place] Hurtado DO Work Phone: [facility] 09-15-2024 14:36-0500 Respiratory rate 15 /min Dr. Marion Hurtado DO Work Phone: [facility] 09-15-2024 14:36-0500 SaO2% (BldA) [Mass fraction] 98 % Dr. Marion Hurtado DO Work Phone: [facility] 09-15-2024 14:36-0500 Systolic blood pressure 124 mm[Hg] Dr. Marion Hurtado DO Work Phone: [facility] 09-15-2024 11:08-0500 Body height 170.[address] [place] Hurtado DO Work Phone: [facility] 09-15-2024 11:08-0500 Body mass index (BMI) [Ratio] 32.8 kg/m2 Dr. Marion Hurtado DO Work Phone: [facility] 09-15-2024 11:08-0500 Body weight 94.[address] [facility] Hurtado DO Work Phone: [facility] Encounters Encounter Date Encounter Type Care Provider Facility Start: 11-06-2024 End: 11-06-[address] Marion Hurtado DO Work Phone: [facility] Work Phone: Start: 11-06-2024 End: 11-06-[address] Marion Hurtado DO -Laboratory, [place] Work Phone: Start: 11-06-2024 End: 11-06-2024 ambulatory Marion Malchristina Facility:[facility] Start: 10-21-2024 End: 10-21-[address] [place] Hurtado DO Work Phone: [facility] Work Phone: Start: 10-21-2024 End: 10-21-[address] Marion Hurtado DO -Radiology, [place] Work Phone: Start: 10-21-2024 End: 10-21-2024 [facility] Start: 10-06-2024 End: 10-06-[address] Marion Hurtado DO -Laboratory, [facility] Start: 10-06-2024 End: 10-06-2024 ambulatory Marion Malys Facility:[facility] Start: 09-15-2024 End: 09-15-2024 Emergency department patient visit Dr. Zeb Chin MD -Emergency Department Work Phone: Start: 06-11-2024 End: 06-11-2024 [facility] Start: 04-08-2024 End: 04-08-2024 ambulatory Marion Malys Facility:[facility] Start: 03-01-2024 End: 03-01-2024 [facility] Start: 02-26-2024 End: 02-26-2024 ambulatory Marion Hurtado Facility:[facility] Start: 12-01-2022 End: 12-01-2022 ambulatory [facility] Work Phone: Start: 12-01-2022 End: 12-01-2022 Patient encounter procedure [facility]-Laboratory Start: 08-18-2022 End: 08-18-2022 Patient encounter procedure [facility]-Cat Scan, [facility] Start: 07-31-2022 End: 07-31-2022 ambulatory [facility] Work Phone: Start: 07-31-2022 End: 07-31-2022 Patient encounter procedure [facility]-Laboratory, Darlene Damiándevorah [facility] Procedures Date Procedure Procedure Detail Performing Clinician [...] Date Care Activity Detail Author Start: 09-15-2024 [facility] Patient Education ED Dehydration (Adult) ED Gastroenteritis, Viral (Adult) [facility] Work Phone: Patient referral [facility] Work Phone: Immunizations Immunization Date Immunization Notes Care Provider Fa cility 11-16-2020 Covid (Pfizer) [facility] 10-26-2020 Covid (Pfizer) [facility] Payers Date Payer Category Payer Self-pay [id number] 2014 Unknown [id number] Unknown [id number] Unknown [id number] 2.16.8 [id number] Unknown [id number] 2.16.8 [id number] Unknown [id number] 2.16.8 [id number] Unknown [id number] 2.16.8 [id number] Unknown [id number] 2.16.8 [id number] Unknown [id number] 2.16.8 [id number] Unknown [id number] 2.16.8 [id number] Unknown [id number] 2.16.8 [id number] Social History Date Type Detail Facility Start: 06-23-2021 End: 06-23-2021 Tobacco smoking status CTIS Unknown if ever smoked [facility] Start: 1965 Sex Assigned At Female [facility] Start: 09-15-2024 Tobacco smoking stat us CTIS Ex-smoker (finding) [facility] Start: 10-31-2024 End: 11-11-2024 Sex Female (finding) [facility] Mental Status Date Assessment Result Facility 09-15-2024 Cognitive function Level Of Cons ciousness Awake;Alert;Appropriate;Follow s Commands [facility] Work Phone: Radiology Diagnostic study note 11-06-2024 Note Date & Type Note Facility 11-06-2024 Radiology Diagnostic study note [facility] [address], [place] [address] Chest PA and Lateral MR#: [id number] Acct: [id number] Name: MARION INFANTE Rep #: [id number] : 1965 F 59 From: Robbi Barrera MD PCP: Dr. [place] Hurtado DO Status: REG CLI Study:Chest PA and Lateral Date of Exam: 11/06/24 Exam# [id number] Ordering Dr: Steffanie Hurtado sa, DO PROCEDURE: [...] evidence of acute cardiopulmonary disease. Reading Location: [place] [address] CC: Dr. [place] Hurtado DO ~ Animal Care Technician: Signed [facility] Radiology Diagnostic study note 10-21-2024 Note Date & Type Note Facility 10-21-2024 Radiology Diagnostic study note [facility] [address] [place] [address] Sinuses min 3 Views MR#: [id number] Acct: [id number] Name: MARION INFANTE Rep #: [id number] : 1965 F 58 From: Raghavendra Jones DO PCP: Dr. [place] Hurtado DO Status: REG CLI Study:Sinuses min 3 Views Date of Exam: 10/21/24 Exam# [id number] Ordering Dr: Steffanie Hurtado sa, DO PROCEDURE: [...] JESUS CC: Dr. [place] Hurtado DO ~ Animal Care Technician: Signed [facility] Evaluation note Note Date & Type Note Facility Evaluation note No assessment information availa ble [facility] Work Phone: Reason for referral (narrative) Note Date & Type Note Facility Reason for referral (narrative) No reason for referral information available [facility] Work Phone: Family History No Family [...] Do you have a Healthcare Power of Veterinary Practice Manager? No September 15, 2024 12:39pm Summary Purpose [...] section and content) DATE CREATED AUTHOR 11/12/[address] [facility] FOR RECORDS PERTAINING TO PATIENTS WHO [...] BE BASED ON THE PRIMARY CLINICAL RECORDS. [employer] provides no warranty or guarantee of the accuracy or completeness of information in this document.
[2025-05-08 04:07] LABS: PROGESTERONE <0.1 ng/mL (.)
[2025-05-12 14:08] LABS: Testosterone, % Free 2.24 % (0.50-2.80); Testosterone, Free 0.13 ng/dL (0.10-0.85)
== END | disposition home or self-care (01) ==
LOC: MTLAB 16:05
PROVIDERS: PCP Family Medicine; Referring Provider Family Medicine; Visit Provider Family Medicine
DX: N95.9 Unspecified menopausal and perimenopausal disorder (principal); Z51.81 Encounter for therapeutic drug level monitoring
CPT/HCPCS: 36415; 82670; 84144; 84402; 84403

== ENCOUNTER → 2025-05-25 | Outpatient (CLI) | payer BC, SELFPAY ==
--- NOTE | 2025-05-25 08:08 | BI_ITS ---
EXAM: SCRN MAMM (CAD)W/KAHLIL BILAT DATE: 05/25/2025 CLINICAL HISTORY: F, Age 59 y/o , SCREENING TECHNIQUE: Procedure Code: BISMWCADBTOM Modality: MG Procedure: SCRN MAMM (CAD)W/KAHLIL BILAT COMPARISON: Prior exam(s) dated mammogram dated 04/08/2024. FINDINGS: TISSUE DENSITY: There are scattered areas of fibroglandular density. Bilateral Breast Mammographic Findings: No significant masses, calcifications or other abnormalities are identified. Benign-appearing round microcalcifications are seen in both breasts. BI/SCRN MAMM (CAD)W/KAHLIL BILAT IMPRESSION: Benign screening mammogram. OVERALL FINAL ASSESSMENT BI-RADS 2: BENIGN RECOMMENDATION: Routine annual follow-up in 1 Year Additional Recommendation none A letter with findings and recommendations will be mailed to the patient. Reading Location: [id number]
== END | disposition home or self-care (01) ==
LOC: OPBI 08:07
PROVIDERS: PCP Family Medicine; Referring Provider Family Medicine; Visit Provider Family Medicine
DX: Z12.31 Encounter for screening mammogram for malignant neoplasm of breast (principal)
CPT/HCPCS: 77063; 77067